=== PATIENT | male | born 1970 | race Two or more races ===

== ENCOUNTER 2022-09-19 10:29 | Emergency (ER) | payer OTHER, SELFPAY ==
--- NOTE | ~2022-09-19 | XR_ITS ---
EXAMINATION: XR RIBS, RIGHT CLINICAL INFORMATION: Right rib pain status post fall. COMPARISON: None TECHNIQUE: 3 views of the right ribs were obtained. Indicating arrow points to the inferior right ribs. FINDINGS: Lungs are clear. No consolidation, pneumothorax, or pleural effusion. The cardiomediastinal silhouette and pulmonary vasculature are normal. Osseous structures are unremarkable. Ribs are intact. No fractures are identified. XR/XR ribs RT min 3V w CXR1V IMPRESSION: Unremarkable examination. Please refer to the report from right shoulder and humerus radiographs from today for more detailed findings.
--- NOTE | ~2022-09-19 | XR_ITS ---
EXAMINATION: CR X-RAY SHOULDER AND HUMERUS RIGHT CLINICAL INFORMATION: Status post fall from ladder 1 week ago with persistent pain. COMPARISON: None TECHNIQUE: 3 views each of the right shoulder and humerus were obtained. FINDINGS: There is an acute, mildly displaced right humeral surgical neck fracture with mild lateral displacement of the distal fragment. Moderate right glenohumeral degenerative joint changes are seen. The right acromioclavicular joint and distal right humerus are intact. Mild soft tissue swelling is seen laterally. XR/XR humerus RT IMPRESSION: 1. Acute, mildly displaced right humeral surgical neck fracture correlating with the patient's trauma. 2. Moderate right glenohumeral degenerative joint changes.
--- NOTE | ~2022-09-19 | XR_ITS ---
EXAMINATION: CR X-RAY SHOULDER AND HUMERUS RIGHT CLINICAL INFORMATION: Status post fall from ladder 1 week ago with persistent pain. COMPARISON: None TECHNIQUE: 3 views each of the right shoulder and humerus were obtained. FINDINGS: There is an acute, mildly displaced right humeral surgical neck fracture with mild lateral displacement of the distal fragment. Moderate right glenohumeral degenerative joint changes are seen. The right acromioclavicular joint and distal right humerus are intact. Mild soft tissue swelling is seen laterally. XR/XR shoulder RT min 2V IMPRESSION: 1. Acute, mildly displaced right humeral surgical neck fracture correlating with the patient's trauma. 2. Moderate right glenohumeral degenerative joint changes.
[2022-09-19 10:48] VITALS: BP 151/73; PULSE 61; RESP 18; TEMP 36.7; O2SAT 99; BMI 28.1
[2022-09-19 13:14] VITALS: BP 149/76; PULSE 59; RESP 19; TEMP 36.6; O2SAT 96
--- NOTE | 2022-09-19 13:52 | ED.EXTPRO ---
HPI - Extremity Problem General Chief complaint: Extremity Injury, Upper Stated complaint: Pain in R arm/shoulder Time Seen by Provider: 09/19/22 13:20 History of Present Illness HPI Narrative: Patient complains of broken bone in right upper arm, as well as right upper rib pain worse with movement and deep breath he was in [place] he fell off a ladder he broke his arm 1 week ago and then once orthopedic follow-up and care as he has now returned to his home He did get an x-ray and see a doctor in [place] who gave him a sling and a swath but as his insurance did not work there he never saw an orthopedist and needs to see an orthopedist He denies any difficulty breathing, no fever no numbness weakness or tingling Related Data Previous Rx's Medication Instructions Recorded acetaminophen 500 mg capsule 1,000 mg PO Q8H PRN pain #30 caps 09/19/22 ibuprofen 600 mg tablet 600 mg PO Q6H PRN pain #30 tabs 09/19/22 tramadol 50 mg tablet 50 mg PO Q6-8H PRN pain #20 tabs 09/19/22 Allergies Allergy/AdvReac Type Severity Reaction Status Date / Time No Known Allergies Allergy Verified 09/19/22 10:52 [facility] Past Medical History Source: nursing notes reviewed Social History Social History Advance Directives: No Advance Directives Information Provided: No Physical Exam Vital Signs: Vital Signs: Last Vital Signs Temp 97.9 F 09/19/22 13:14 Pulse 59 09/19/22 13:14 Resp 19 09/19/22 13:14 BP 149/76 H 09/19/22 13:14 Pulse Ox 96 09/19/22 13:14 O2 Del Method 09/19/22 13:14 BMI result Body Mass Index 28.1 General appearance uncomfortable but no acute distress Head is normocephalic atraumatic Neck is supple nontender, no midline tenderness Chest is clear to auscultation full symmetric equal breath sounds There is pain in the right lateral ribs with deep breath, there is tenderness to the area and pain in the areas reproduced with twisting and movement The back there is no tenderness to the lumbar or thoracic spine Extremities the right shoulder has tenderness over the proximal humerus and the anterior and lateral shoulder as well as ecchymosis from the shoulder to the right bicep area It is neurovascular intact distal with normal sensation and movement in the fingertips, no motor or sensory deficits, neurovascular intact pulses are normal and symmetric Other extremities normal Course Course Course Narrative: X-ray of the right shoulder did show a right humeral neck fracture that is mildly displaced He did have a sling and swath from his visit to the hospital in [place] 1 week ago I contacted orthopedic physician retail loan originator assistant vivian who advised that they could see the patient in a timely way in their orthopedic office and patient was discharged with analgesics and follow-up with ortho Medications Administered Discontinued Medications Generic Name Dose Route Start Last Admin Trade Name Freq PRN Reason Stop Dose Admin Ketorolac Tromethamine 30 mg 09/19/22 13:52 09/19/22 13:57 Ketorolac Tromethamine 30 Mg/Ml Vial IM 09/19/22 13:53 30 mg ONCE ONE Administration Tramadol HCl 50 mg 09/19/22 13:52 09/19/22 13:57 Tramadol Hcl 50 Mg Tablet PO 09/19/22 13:53 50 mg ONCE ONE Administration Discharge Plan Discharge Clinical Impression: Closed right humeral fracture Patient Disposition: Home, Self-Care Additional Instructions: X-ray confirmed that you have a broken shoulder so follow closely with orthopedist and they will discuss possible treatment options X-ray of her chest and ribs did not show any broken bone, but x-ray can miss small fractures or cracks in the bone so you have either bruised or cracked rib Rib injuries almost always get better on their own over a couple weeks This was discussed from the emergency room with physician assistant prak Apply ice, use pain medicine as needed Return any time if worse Prescriptions: New tramadol 50 mg tablet 50 mg PO Q6-8H PRN (Reason: pain) Qty: 20 0RF ibuprofen 600 mg tablet 600 mg PO Q6H PRN (Reason: pain) Qty: 30 0RF acetaminophen 500 mg capsule 1,000 mg PO Q8H PRN (Reason: pain) Qty: 30 0RF Referrals: Sathish Mckeon MD [Physician] - (Right humeral neck fracture)
[2022-09-19] MEDS: Ketorolac Tromethamine 30 MG/ML VIAL IM (13:57)
[2022-09-19] MEDS: traMADoL HCL 50 MG TABLET PO (13:57)
== END 2022-09-19 14:09 | disposition home or self-care (01) ==
PROVIDERS: Emergency Provider Student in an Organized Health Care Education/Training Program
DX: S42.211A Unspecified displaced fracture of surgical neck of right humerus, initial encounter for closed fracture (principal); W11.XXXA Fall on and from ladder, initial encounter; R07.81 Pleurodynia; Y93.9 Activity, unspecified; Y92.9 Unspecified place or not applicable; Y99.9 Unspecified external cause status
CPT/HCPCS: 71101; 73030; 73060; 96372; 99283; 99284; J1885

== ENCOUNTER 2022-09-20 11:55 | Outpatient (REF) | payer OTHER, MEDICAID, SELFPAY ==
--- NOTE | ~2022-09-20 | XR_ITS ---
EXAMINATION: XR ELBOW, RIGHT CLINICAL INFORMATION: Right elbow pain. COMPARISON: None TECHNIQUE: AP and lateral views of the right elbow. FINDINGS: Soft tissues are swollen at the elbow with significant subcutaneous edema. No fracture or malalignment. Joint spaces are well-preserved. Bone mineralization is normal. Limited sensitivity for a effusion due to the obliquity. XR/XR elbow RT min 3V IMPRESSION: Soft tissue swelling and subcutaneous edema at the right elbow. No acute osseous findings. Limited sensitivity for a joint effusion due to the relative obliquity of the lateral view.
== END 2022-09-20 11:56 | disposition home or self-care (01) ==
LOC: HO.HOSX 11:55
PROVIDERS: Visit Provider Physician Assistant
DX: S42.201A Unspecified fracture of upper end of right humerus, initial encounter for closed fracture (principal)
CPT/HCPCS: 73080; 99202

== ENCOUNTER 2022-10-10 15:03 | Outpatient (REF) | payer MEDICARE, MEDICAID, SELFPAY ==
--- NOTE | ~2022-10-10 | CT_ITS ---
EXAMINATION: CT SHOULDER WITHOUT CONTRAST, RIGHT CLINICAL INFORMATION: Other specific arthropathies, not elsewhere classified. Fall. Pain. COMPARISON: Right shoulder and humerus radiographs dated 09/19/2022. TECHNIQUE: Contiguous axial CT images of the right shoulder were obtained without contrast. Sagittal and coronal reformats were provided and reviewed. This CT examination was performed using dose optimization techniques as appropriate, variously including the following: *Automated exposure control *Adjustment of mA and/or kV according to patient size (this includes techniques or standardized protocols for targeted exams where dose is matched to indication/reason for exam; i.e. extremities or head) *Use of iterative reconstruction technique DLP: 363 mGy-cm. FINDINGS: Comminuted proximal humeral fracture with a dominant oblique component through the humeral neck. There are small cortical fracture fragments adjacent to the dominant fracture with the largest along the anteromedial aspect measuring up to 1.2 cm in AP dimension. The fracture gap measures up to 1.3 cm laterally. No extension to the articular surface. No additional fracture. No dislocation. Severe glenohumeral joint space narrowing with mild bony remodeling/flattening of the humeral head and glenoid. Large marginal osteophytes. Mild acromioclavicular joint space narrowing with small marginal osteophytes. No concerning lytic or blastic osseous lesion. Moderate glenohumeral joint effusion. Posteroinferior ossified loose body measuring up to 2.1 cm in greatest dimension. Attenuation of the supraspinatus and infraspinatus tendons, which could indicate tendon tears. Evaluation significantly limited on CT examination. No abnormal soft tissue mass or fluid collection. Mild emphysematous changes within the right lung. Partially visualized within the inferomedial aspect of the right middle lobe is a spiculated soft tissue density measuring up to 2.6 x 2.3 cm. Additional, somewhat irregular soft tissue nodule within the right upper lobe measuring up to 0.7 cm (axial image 209/346). CT/CT shoulder RT wo IV con IMPRESSION: 1. Comminuted proximal humeral fracture with a dominant oblique component through the humeral neck. Small cortical fracture fragments adjacent to the dominant fracture with the largest measuring up to 1.2 cm. No extension to the articular surface. 2. Severe glenohumeral osteoarthritis with bony remodeling/flattening of the humeral head and glenoid. Moderate joint effusion. Posteroinferior ossified loose body measuring up to 2.1 cm. 3. Attenuation of the supraspinatus and infraspinatus tendons, which could indicate tendon tears. Evaluation significantly limited on CT examination. 4. Partially visualized spiculated soft tissue density within the inferomedial aspect of the right middle lobe measuring up to 2.6 cm. Additional 0.7 cm right upper lobe nodule. Mild emphysematous changes within the right lung. Immediate dedicated CT chest with contrast is recommended to further evaluate. This critical result was discussed with Paulina Marcos at 10:20 AM on 04/07/2023 and it was ascertained that the content and urgency of the report was understood at the time of direct communication.
== END 2022-10-10 15:04 | disposition home or self-care (01) ==
LOC: HO.CT 15:03
PROVIDERS: PCP Family Medicine; Visit Provider Physician Assistant
DX: M12.811 Other specific arthropathies, not elsewhere classified, right shoulder (principal)
CPT/HCPCS: 73200

== ENCOUNTER 2022-10-22 10:31 | Outpatient (REF) | payer MEDICARE, MEDICAID, SELFPAY ==
--- NOTE | ~2022-10-22 | CT_ITS ---
EXAMINATION: CT CHEST WITH CONTRAST CLINICAL INFORMATION: Lung nodule. COMPARISON: No prior chest CT or dedicated chest x-ray. CT scan of the shoulder dated October 10, 2022. TECHNIQUE: Multidetector volumetric CT imaging of the chest was obtained after the administration of 65 mL of Omnipaque 350 intravenous contrast without immediate adverse reactions. Axial MIP volume rendering provided. Sagittal and coronal reformatted images were obtained. This CT examination was performed using dose optimization techniques as appropriate, variously including the following: *Automated exposure control *Adjustment of mA and/or kV according to patient size (this includes techniques or standardized protocols for targeted exams where dose is matched to indication/reason for exam; i.e. extremities or head) *Use of iterative reconstruction technique DLP: 143 mGy-cm FINDINGS: LUNGS: The partially visualized spiculated soft tissue density within the inferomedial aspect of the right middle lobe measuring up to 2.[address] scan of the shoulder from October 10, 2022 appears decreased in size and conspicuity, and demonstrates a linear/geographic morphology. 4 mm calcified left upper lobe granuloma (image 60, series 7). MEDIASTINUM: Normal variant direct origin of the left vertebral artery from the aortic arch. The mediastinum otherwise appears unremarkable. PLEURA: There is no pleural effusion. No pleural mass or thickening. AXILLA: No lymphadenopathy by size criteria. UPPER ABDOMEN: Unremarkable OSSEOUS STRUCTURES: Redemonstration of comminuted fracture of the proximal right humerus. Osteoarthritis of the right glenohumeral joint. Healing fractures involving the right sixth through eighth ribs. Mild thoracic levocurvature. CT/CT chest w IV con IMPRESSION: The partially visualized spiculated soft tissue density within the inferomedial aspect of the right middle lobe measuring up to 2.[address] scan of the shoulder from October 10, 2022 appears decreased in size and conspicuity, and demonstrates a linear/geographic morphology, consistent with benign fibrotic change and/or atelectasis. Additional findings, as above.
[2022-10-22] MEDS: iohexoL 350 MG/ML 100 ML INFUS..BTL IV (12:35)
== END 2022-10-22 10:32 | disposition home or self-care (01) ==
LOC: HO.CT 10:31
PROVIDERS: PCP Family Medicine; Visit Provider Family Medicine
DX: R91.8 Other nonspecific abnormal finding of lung field (principal)
CPT/HCPCS: 71260; Q9967

== ENCOUNTER → 2022-11-02 10:30 | Outpatient (BNVA) | payer MEDICARE, MEDICAID, SELFPAY | PROVIDERS: PCP Family Medicine; Visit Provider Surgery | DX: R91.1 Solitary pulmonary nodule (principal); F17.200 Nicotine dependence, unspecified, uncomplicated | CPT/HCPCS: 99202 ==

== ENCOUNTER 2022-12-03 10:33 | Outpatient (REF) | payer OTHER, SELFPAY ==
--- NOTE | ~2022-12-03 | XR_ITS ---
EXAMINATION: XR SHOULDER, RIGHT CLINICAL INFORMATION: Pain. COMPARISON: Portions of the CT shoulder dated 10/11/2022; radiographs dated 09/20/2022. TECHNIQUE: AP external rotation, Grashey, scapular Y, and axillary views of the right shoulder. FINDINGS: Bony mineralization is mildly diminished. There is improvement in alignment of an oblique, mildly displaced fracture of the right humeral neck. Mild periosteal callus formation is noted. The glenohumeral joint is intact. There is moderate osteoarthritic change of the glenohumeral joint. The acromioclavicular and coracoclavicular intervals are normal. There is a small distal acromial undersurface osteophyte. There is cortical irregularity of the greater tuberosity of the proximal right humerus. No soft tissue calcification or foreign body is noted. XR/XR shoulder RT min 2V IMPRESSION: 1. There is interim improvement in alignment of a now mildly displaced oblique fracture of the right humeral neck. Mild periosteal callus formation is noted. 2. There is moderate osteoarthritic change of the right glenohumeral joint. 3. Findings suggest possible right rotator cuff impingement.
== END 2022-12-03 10:34 | disposition home or self-care (01) ==
LOC: HO.HOSX 10:33
PROVIDERS: Visit Provider Physician Assistant
DX: S42.201D Unspecified fracture of upper end of right humerus, subsequent encounter for fracture with routine healing (principal)
CPT/HCPCS: 73030

== ENCOUNTER 2022-12-11 10:46 | Outpatient (REF) | payer OTHER, SELFPAY ==
--- NOTE | ~2022-12-11 | XR_ITS ---
EXAMINATION: XR LUMBOSACRAL SPINE CLINICAL INFORMATION: No prior plain film of the lumbar spine. Chest CT dated October 22, 2022. COMPARISON: None available. TECHNIQUE: Three views of the lumbosacral spine. XR/XR lumbar spine 2-3V FINDINGS/IMPRESSION: Question mild compression deformities of T12 and L1, similar compared with October 22, 2022. Mild posterior subluxation of the coccyx seen on coned down lateral view. Vertebral alignment appears unremarkable. The paraspinal soft appear unremarkable.
== END 2022-12-11 10:47 | disposition home or self-care (01) ==
LOC: HO.HHCX 10:46
PROVIDERS: Visit Provider Emergency Medicine
DX: M54.42 Lumbago with sciatica, left side (principal); G89.29 Other chronic pain
CPT/HCPCS: 72100

== ENCOUNTER → 2022-12-18 09:11 | Outpatient (BNVA) | payer OTHER, SELFPAY | PROVIDERS: PCP Family Medicine; Referring Provider Family Medicine; Visit Provider Surgery | DX: K43.2 Incisional hernia without obstruction or gangrene (principal) | CPT/HCPCS: 99202 ==

== ENCOUNTER 2023-01-11 09:59 | Day surgery (SDC) | payer OTHER, SELFPAY ==
--- NOTE | 2023-01-10 09:59 | HO.ANESPROP2 ---
HPI - Anesthesia Eval Consult details Narrative: 52yo M for Open Ventral/Incisional Hernia Repair w/ Mesh PMFSH Active Problems Active Problems: All Active Problems (Updated 01/10/23 @ 08:00 by Leah Lee RN) Proximal humeral fracture (Acute ~09/2022) Pulmonary nodule (Acute) Incisional hernia of anterior abdominal wall without obstruction or gangrene (Acute) Nicotine dependence, cigarettes, uncomplicated (Acute) Past Medical History Medical History Anxiety BPH (benign prostatic hyperplasia) Chronic neck pain Depressed GERD (gastroesophageal reflux disease) Hyperlipidemia Nicotine dependence, cigarettes, uncomplicated Pulmonary nodule Surgical History Surgical History History of arthroscopic surgery of shoulder History of basal cell carcinoma excision Hx of carpal tunnel repair Hx of inguinal hernia repair Hx of umbilical hernia repair Social History Social History Alcohol intake: current Alcohol intake frequency: holidays/special occasions only Alcohol type: beer Patient Tobacco Use Status: Current everyday Tobacco user Tobacco use type: Cigarette Cigarette Packs Per Day: 1 Cigarettes Per Day: 20.0 Years Smoked: (current smoker, onset 10yo, 1ppd x 42yrs, 40pyh) Current occupational status: disabled Current occupation: rt hand Meds Allergies Allergy/AdvReac Type Severity Reaction Status Date / Time No Known Allergies Allergy Verified 01/14/23 12:41 Home Medications Medication Instructions Recorded Confirmed Last Taken Type atorvastatin 40 mg tablet 40 mg PO DAILY 09/20/22 01/11/23 Unknown History ezetimibe 10 mg tablet 10 mg PO DAILY 09/20/22 01/11/23 Unknown History finasteride 5 mg tablet 5 mg PO DAILY 09/20/22 01/11/23 Unknown History gabapentin 800 mg tablet 400 mg PO QID 09/20/22 01/11/23 01/11/23 History quetiapine 25 mg tablet (Seroquel) 25 mg PO BEDTIME 12/03/22 01/11/23 Unknown History Exam Exam Date and Time: January 10, 2023 0959 Assessment and Plan Assessment Anesthesia Assessment: Chart Reviewed
--- NOTE | 2023-01-10 11:24 | MHC.SHP ---
Pre-Procedural Eval Section A Date of Service: 01/10/23 The patient is an INPATIENT: No Changes since office visit: No Cold of Flu in the past 2 weeks, No New Medical Problems, No Changes in Medication and No Patient answered all questions The History & Physical has been completed within 30 days and I have reviewed it.: Yes Section B Chief Complaint: Incisional hernia without obstruction or gangrene Allergies: Allergies Allergy/AdvReac Type Severity Reaction Status Date / Time No Known Allergies Allergy Verified 12/18/22 09:19 Plan I have reviewed the history and physical and performed a pertinent physical examination on my patient. No changes have occurred unless specified. Time Spent With Patient Time: Total time managing care of this patient today ____ minutes.
[2023-01-11] VITALS (8 sets, daily range): BP systolic 125–170; BP diastolic 77–91; PULSE 51–70; RESP 16–18; TEMP 36.3–36.6; O2SAT 96–99; BMI 26.6
[2023-01-11] MEDS: Lactated Ringers 1,000 ML 100 ML IVCONT (10:42)
--- NOTE | 2023-01-11 12:05 | W.PM.OPN ---
Operative Note Operative Note Date of Service: 01/11/23 Narrative: Preoperative diagnosis: [] incisional supraumbilical ventral hernia incarcerated Postop diagnosis: [] same Procedure [] repair incarcerated incisional ventral hernia with Bard mesh Surgeon: [] right Licensed Appraiser: [] Type of Anesthesia: [] general Indication for surgery: [] patient had approximately 3 cm supraumbilical incisional ventral hernia with incarcerated omental contents. Findings: [] Patient brought to the operating room, placed on operative table supine position, after adequate level of general anesthesia was induced, the patient's abdomen was prepped and draped in usual sterile fashion. Using an incision from the prior scar from the patient's previous surgery in the upper midline/supraumbilical area, over the hernia in question, this carried down through skin, subcutaneous tissue, were large hernia sac was identified and circumferentially dissected out down to the fascia. Sac was opened were incarcerated omental contents and sac were amputated using combination of Bovie and clamps and 2-0 ties. Fascia margins were circumferentially cleared and a Bard mesh was placed in this defect. The superficial layer of mesh was circumferentially sutured to the surrounding fascia using interrupted 0 Ethibond suture. At completion the procedure, mesh was in excellent position with no tension and no gaps. Wound was irrigated, secured hemostasis, and closed in the following manner; deep subcutaneous tissue was reapproximated using up to 3-0 Vicryl sutures. Interrupted inverted subdermal 3-0 Vicryl sutures followed by running subcuticular 4-0 Vicryl sutures were placed. Steri-Strips and sterile dressings were applied. Wound was infiltrated with a combination of 0.5% Marcaine/ 1% lidocaine. Sponge, needle, and instrument counts were reported to be correct. Patient tolerated the procedure well and emerged anesthesia stable condition. EBL minimal
[2023-01-11] MEDS: oxyCODONE HCl Immed Release 5 MG TABLET PO (12:47)
== END 2023-01-11 13:20 | disposition home or self-care (01) ==
PROVIDERS: PCP Family Medicine; Visit Provider Surgery
PROC: (CPT 49616; principal; 2023-01-11 11:40)
DX: K43.0 Incisional hernia with obstruction, without gangrene (principal); K21.9 Gastro-esophageal reflux disease without esophagitis; N40.0 Benign prostatic hyperplasia without lower urinary tract symptoms; E78.00 Pure hypercholesterolemia, unspecified; G89.29 Other chronic pain; M54.2 Cervicalgia; F32.A Depression, unspecified; F41.1 Generalized anxiety disorder; F17.210 Nicotine dependence, cigarettes, uncomplicated; Z98.890 Other specified postprocedural states
CPT/HCPCS: 49616; 88304; C1781; J0131; J0690; J1100; J1885; J2405; J2795; J3010

== ENCOUNTER 2023-01-14 08:29 | Outpatient (REF) | payer OTHER, SELFPAY ==
--- NOTE | ~2023-01-14 | XR_ITS ---
EXAMINATION: XR SHOULDER, RIGHT CLINICAL INFORMATION: Pain. COMPARISON: Radiographs dated 12/03/2022. TECHNIQUE: AP external rotation, Grashey, scapular Y, and axillary views of the right shoulder. FINDINGS: Bony mineralization is mildly diminished. There is stable alignment of an oblique, mildly displaced fracture of the right humeral neck. There is stable mild periosteal callus formation, with fracture line clearly visible. The glenohumeral joint is intact. Again, there is moderate osteoarthritic change of the right glenohumeral joint. The acromioclavicular and coracoclavicular intervals are normal. A small distal acromial undersurface osteophyte is seen. There is marked cortical irregularity of the greater tuberosity of the proximal right humerus. No soft tissue calcification or foreign body is seen. There is no right pneumothorax. XR/XR shoulder RT min 2V IMPRESSION: 1. There is stable alignment of a mildly displaced, oblique fracture of the right humeral neck. A persistent fracture line is noted. 2. There is again moderate osteoarthritic change of the right glenohumeral joint. 3. Findings again suggest right rotator cuff impingement.
== END 2023-01-14 08:30 | disposition home or self-care (01) ==
LOC: HO.HOSX 08:29
PROVIDERS: Visit Provider Physician Assistant
DX: S42.201D Unspecified fracture of upper end of right humerus, subsequent encounter for fracture with routine healing (principal)
CPT/HCPCS: 73030; 99212

== ENCOUNTER → 2023-01-22 10:06 | Outpatient (BNVA) | payer OTHER, SELFPAY | PROVIDERS: Visit Provider Surgery ==

== ENCOUNTER 2023-02-13 14:18 | Outpatient (REF) | payer OTHER, SELFPAY ==
--- NOTE | ~2023-02-13 | MM_ITS ---
EXAMINATION: BONE DENSITOMETRY CLINICAL INDICATION: Osteoporosis. COMPARISON: This is the patient's baseline examination. TECHNIQUE: Using a Teleport DXA System (software version: 13.1) manufactured by [employer], dual-energy x-ray absorptiometry was performed of the lumbar spine and left hip. The images are of good technical quality. Summary results are attached. FINDINGS: LEFT FEMUR, NECK: BMD 0.950 g/cm2, Z-score -0.2, T-score -0.9, normal. LEFT FEMUR, TOTAL: BMD 1.148 g/cm2, Z-score 0.7, T-score 0.3, normal. AP SPINE L1-L4: BMD 1.394 g/cm2, Z-score 1.6, T-score 1.4, normal. IDENTIFIED RISK FACTORS: Anticonvulsant, history of fracture (adult), low calcium intake, recurrent falls, tobacco use (current smoker). HISTORY OF FRACTURE: Shoulder. MEDICATIONS: None listed. MM/XR DEXA axial skeleton IMPRESSION: 1. DIAGNOSIS: Normal bone density based on the lowest T-score value of -0.9 in the femoral neck applying World Health Organization criteria. 2. 10-YEAR FRACTURE RISK PREDICTION, FRAX: According to the guidelines, FRAX calculation should only be performed on patients in the osteopenia bone density category. Therefore, FRAX was not performed on this patient. 3. Treatment Recommendations: NOF guidelines recommend consideration for treatment in postmenopausal women and men age 50 and older presenting with the following: -A hip or vertebral (clinical or morphometric) fracture. -T-score less than or equal to -2.5 at the femoral neck or spine after appropriate evaluation to exclude secondary causes. -Low bone mass at the hip or spine and a 10-year fracture probability by FRAX of greater than or equal to 3% for hip fracture or greater than or equal to 20% for major osteoporotic fracture based on the [place] adapted WHO algorithm. 4. Other Recommendations: All treatment decisions require clinical judgment and consideration of individual patient factors, including patient preferences, comorbidities, previous drug use, risk factors not captured in the FRAX model (e.g. frailty, falls, vitamin D deficiency, increased bone turnover, interval significant decline in bone density) and possible under or overestimation of fracture risk by FRAX. FUTURE SCAN RECOMMENDATION: People with diagnosed cases of osteoporosis or at high risk for fracture should have regular bone mineral density tests. For patients eligible for Medicare, routine testing is allowed once every 2 years. The testing frequency can be increased to one year for patients who have rapidly progressing disease, those who are receiving or discontinuing medical therapy to restore bone mass, or have additional risk factors.
== END 2023-02-13 14:19 | disposition home or self-care (01) ==
LOC: HO.MAMMO 14:18
PROVIDERS: PCP Family Medicine; Visit Provider Family Medicine
DX: Z13.820 Encounter for screening for osteoporosis (principal); G95.20 Unspecified cord compression; F17.200 Nicotine dependence, unspecified, uncomplicated; E58 Dietary calcium deficiency; Z79.899 Other long term (current) drug therapy
CPT/HCPCS: 77080

== ENCOUNTER 2023-02-14 09:29 | Outpatient (AMB) | payer OTHER, SELFPAY ==
--- NOTE | 2023-02-14 09:31 | MHC.OFFVIS ---
Intake Vital Signs 02/14/23 09:35 Height 5 ft 8 in Weight 176 lb BMI 26.8 BP 129/77 Blood Pressure Location Rt brachial Position Sitting Pulse 69 Intake Visit Reasons: subcutaneous nodule Intake Note: This patient presents for an assessment for subcutaneous nodule. Patient c/o; tender to the touch, back, denies draining. Claims Supervisor Required: No Accompanied by: Other Relationship Allergies No Known Allergies Allergy (Verified 02/14/23 09:36) Medication List - Last Reconciled 02/14/23 by Alden Naik MD acetaminophen 1,000 mg (2 x 500 mg) PO Q8H PRN atorvastatin 40 mg PO DAILY ezetimibe 10 mg PO DAILY finasteride 5 mg PO DAILY gabapentin 400 mg PO QID hydrocodone-acetaminophen 5-325 mg 1 tab PO Q4-6H PRN ibuprofen 600 mg PO Q6H PRN quetiapine (Seroquel) 25 mg PO BEDTIME tramadol 50 mg PO Q12H 7 days HPI subcutaneous nodule HPI Details 52-year-old male here because of cyst on the back. He says he has had this for about 6 months. He says that this get swollen and tender periodically and he wants this removed. He denies any drainage. He says that he does had care of a ventral hernia about a month ago and he seems to be doing well. [facility], [facility] Medical History (Updated 02/14/23 @ 09:48 by Alden Naik MD) Anxiety BPH (benign prostatic hyperplasia) Chronic neck pain Depressed Epidermal cyst GERD (gastroesophageal reflux disease) Hyperlipidemia Nicotine dependence, cigarettes, uncomplicated Surgical History History of arthroscopic surgery of shoulder History of basal cell carcinoma excision History of carpal tunnel surgery History of incisional hernia repair History of inguinal hernia repair History of umbilical hernia repair Social History Alcohol intake: current Alcohol intake frequency: holidays/special occasions only Alcohol type: beer Patient Tobacco Use Status: Current everyday Tobacco user Tobacco use type: Cigarette Cigarette Packs Per Day: 1 Cigarettes Per Day: 20.0 Years Smoked: (current smoker, onset 10yo, 1ppd x 42yrs, 40pyh) Current occupational status: disabled Current occupation: rt hand Review of Systems Const Denies chills and Denies fever(s) Card Denies chest pain, Denies dyspnea and Denies dyspnea on exertion Resp Denies cough, Denies dyspnea and Denies dyspnea on exertion GI Denies hematochezia and Denies change in bowel habits Denies hematuria and Denies difficulty urinating Musc Denies back pain and Denies limited range of motion Neuro Denies focal weakness and Denies convulsions Psych Denies depression and Denies mood swings Physical Exam Vital Signs: Last Vital Signs Pulse 69 02/14/23 09:35 BP 129/77 02/14/23 09:35 BMI result Body Mass Index 26.8 Const General: comfortable and no acute distress Orientation/consciousness: patient oriented x3 Neck Neck: Yes no lymphadenopathy Resp Auscultation: clear to auscultation bilaterally Cardio Rhythm: regular rhythm GI Palpation (GI): Soft to palpation, nontender and no guarding Back/Spine/Pelvis Other: Cystic induration, about 1.5 cm on the mid back, non inflamed, well-defined Neuro General: patient oriented x3 Assessment & Plan Assessment & Plan (1) Epidermal cyst: Code(s): L72.0 - Epidermal cyst Plan: He has what appears to be an epidermal cyst on the back as described above. He wants this removed. I explained the technique of excision under local anesthesia. I reviewed the risks, benefits, and alternatives and he wants to proceed. This will be done in the office under local anesthesia on his next visit. Coding Level of Care Code Est Pt Level 3 (68781) Diagnoses Epidermal cyst L72.0
[2023-02-14 09:35] VITALS: BP 129/77; PULSE 69; BMI 26.8
== END 2023-02-14 10:03 | disposition home or self-care (01) ==
PROVIDERS: PCP Family Medicine; Visit Provider Surgery
DX: L72.0 Epidermal cyst (principal)
CPT/HCPCS: 99213

== ENCOUNTER → 2023-02-14 09:29 | Outpatient (BNVA) | payer OTHER, SELFPAY | PROVIDERS: PCP Family Medicine; Visit Provider Surgery | DX: L72.0 Epidermal cyst (principal) | CPT/HCPCS: 99212 ==

== ENCOUNTER 2023-02-18 10:00 | Outpatient (RCR) | payer OTHER, SELFPAY ==
--- NOTE | 2023-01-01 13:34 | MHC.PT.EP ---
[facility] [place] Office [place] Office [place] Office [address] [phone] F: [phone] F: [phone] F: [phone] F: [phone] Physical Therapy Plan of Care Date of Evaluation: Date of Surgery: Diagnosis: Unspecified fracture of upper end of unspecified humerus, initial encounter for closed fracture proximal humeral fracture Assessment: Pt is a pleasant 52yo M who injured his R shoulder after falling off a ladder in ~September. Imaging revealed mildly displaced right humeral surgical neck fracture. Pt presents to PT with expected impairments of pain, decreased R shoulder ROM, decreased R UE strength, soft tissue restrictions, and impaired posture. He is limited functionally by lifting, reaching, carrying, eating, overhead ADLs, and sleeping. He is a good candidate for skilled PT in order to address current impairments to facilitate return to PLOF. He is recommended to be seen 2x/week for 4 weeks and will be reassessed at that time. Frequency and Duration: The patient will be seen 2x/week for 4 weeks Short Term Goals: Pt will be I with HEP to promote self management of symptoms Pt will improve R shoulder flexion ROM by at least 10 degrees Stone Gluer Goals: Pt will achieve R shoulder flexion AROM to 90 deg with minimal to no compensation to facilitate return to PLOF Pt will improve R shoulder flexion and abduction strength to at least 4+/5 to assist with ADLs and functional tasks Pt will demonstrate improvements in function as evidenced by statistically significant improvement in SPADI outcome measure Treatment Plan: Modalities to reduce pain, spasms and effusion. Manual therapy to restore motion and function. Therapeutic exercise to improve strength and flexibility. Neuromuscular re-education for posture and balance. Therapeutic activities to return to functional activities of daily living. Electronically signed by: Raquel Fisher, PT, DPT Please sign and return to therapist. Thank you for your referral.
--- NOTE | 2023-03-22 15:20 | MHC.PT.DC ---
[facility] [place] Office [place] Office [place] Office [address] [place] Murdock [address] [phone] F: [phone] F: [phone] F: [phone] F: [phone] Physical Therapy Discharge Report Diagnosis: Unspecified fracture of upper end of unspecified humerus, initial encounter for closed fracture proximal humeral fracture Date of Surgery: Date of Evaluation: 01/01/23 Date of Discharge: 03/22/23 Treatments to Date: 11 Cancellations to Date: No Shows to Date: Discharge Status: Improved Function Independent with HEP Discharge Summary: Pt was seen for PT from 01/01/23-02/18/23. His last attended and scheduled appointment was 02/18/23. He made good progress since SOC. He improved shoulder ROM and had an overall decrease in pain. Pt is being D/C from skilled PT as he has not attended or called to schedule in >30 days. Pt current level of function unknown at this time. Electronically signed by: Raquel Fisher, PT, DPT Please sign and return to therapist. Thank you for your referral.
== END 2023-03-22 15:20 | disposition home or self-care (01) ==
LOC: HO.PT 10:00
PROVIDERS: PCP Family Medicine; Visit Provider Physician Assistant
DX: S42.201D Unspecified fracture of upper end of right humerus, subsequent encounter for fracture with routine healing (principal)
CPT/HCPCS: 97110; 97140; 97162; 97164

== ENCOUNTER 2023-02-20 14:15 | Outpatient (REF) | payer OTHER, SELFPAY ==
--- NOTE | ~2023-02-20 | CT_ITS ---
EXAMINATION: CT CHEST WITHOUT CONTRAST CLINICAL INFORMATION: Solitary pulmonary nodule. COMPARISON: None available. TECHNIQUE: Multidetector volumetric CT imaging of the chest was done. Axial MIP volume rendering provided. Sagittal and coronal reformatted images were obtained. This CT examination was performed using dose optimization techniques as appropriate, variously including the following: *Automated exposure control *Adjustment of mA and/or kV according to patient size (this includes techniques or standardized protocols for targeted exams where dose is matched to indication/reason for exam; i.e. extremities or head) *Use of iterative reconstruction technique DLP: 204 mGy-cm FINDINGS: WALL AND FLOOR TILER: Well-expanded lungs. LUNGS: The lungs are well-expanded and clear of acute process. Previously visualized curvilinear/fibrillated area around the right middle lobe medially and adjacent to the right pericardium has completely resolved and not visualized at this time. 4 mm calcification in the left upper lobe adjacent to major fissure. No pulmonary nodule, mass or consolidation seen. MEDIASTINUM: The thyroid lobes are symmetrical and normal. The central trachea and bronchi are widely patent. Heart size and the great vessels are normal caliber. No abnormal size mediastinal lymph nodes seen. No pericardial effusion seen either. CORONARY ARTERY CALCIFICATION: Trace coronary artery calcifications are present. PLEURA: There is no pleural effusion. No pleural mass or thickening. AXILLA: Small shotty lymph nodes are seen in the axilla. UPPER ABDOMEN: Visualized liver, spleen, pancreas and bilateral adrenal glands are unremarkable. OSSEOUS STRUCTURES: There is moderate ventral spondylosis of the mid and lower dorsal spine. No aggressive lytic or sclerotic process seen. CT/CT chest wo IV con IMPRESSION: Previously visualized curvilinear/ spiculated lesion of the right middle lobe medially has resolved. There are no new pulmonary nodules, mass or acute consolidation. Fleischner guidelines were followed.
== END 2023-02-20 14:16 | disposition home or self-care (01) ==
LOC: HO.CT 14:15
PROVIDERS: Visit Provider Surgery
DX: R91.1 Solitary pulmonary nodule (principal)
CPT/HCPCS: 71250

== ENCOUNTER 2023-03-08 09:32 | Outpatient (AMB) | payer OTHER, SELFPAY ==
[2023-03-08 10:13] VITALS: BP 120/50; PULSE 55; O2SAT 98; BMI 26.0
--- NOTE | 2023-03-08 10:13 | MHC.OFFVIS ---
Intake Vital Signs 03/08/23 10:13 Height 5 ft 8 in Weight 171 lb BMI 26.0 BP 120/50 L Blood Pressure Location Lt brachial Position Sitting Pulse 55 Pulse Oximetry (%) 98 Intake Visit Reasons: Pulmonary Nodule Allergies No Known Allergies Allergy (Verified 03/08/23 10:20) Medication List - Last Reconciled 03/09/23 by Ambrose Cortez MD acetaminophen 1,000 mg (2 x 500 mg) PO Q8H PRN atorvastatin 40 mg PO DAILY ezetimibe 10 mg PO DAILY finasteride 5 mg PO DAILY gabapentin 400 mg PO QID hydrocodone-acetaminophen 5-325 mg 1 tab PO Q4-6H PRN ibuprofen 600 mg PO Q6H PRN quetiapine (Seroquel) 25 mg PO BEDTIME tramadol 50 mg PO Q12H 7 days HPI Pulmonary Nodule HPI Details 52-year-old male long-time and curr ent smoker who has had 2 shoulder barajas rgeries on the rig ht side before and more recently had a CT scan of the right shoulder in preparation for po ssible shoulder re placement which wa s done on 10/10/2022 .? This showed a p ulmonary nodule in the right middle lobe measuring abo ut 2.6 cm.? Quite appropriately a fu ll regular CT scan of the chest was done on 10/22/2022 in follow-up with that finding which shows decrease in size of that pulm onary nodule in th e right middle lob e with an inflamma tory or atelectati c appearance to it .? There is no med iastinal lymphaden opathy and no pleu ral fluid. A follo w-up CT scan of th e chest was done o n 02/20/2023. This shows complete re solution of the ri ght middle lobe no dule previously me ntioned. He is a current smoker smo raman a pack per da y started at age [age].? I did spend 6 minutes discussing smoking cessation with him includin g gradual weaning and using the gum as a replacement a s well as replacin g any triggers daniel t he knows with so me other activity like a walk or clemencia wing gum.? He says he wants to try a nd stop But has be en unsuccessful us ing multiple diffe rent modalities. We did discuss oth er ways including Chantix and Wellbu emily and because h e does have some b aseline anxiety he wants to try the Wellbutrin. I vonnie l start him with a prescription for that and asked daniel t he let his prima ry care know we molina ve started that so that it can be co ntinued if it seem s to be working.? I also did mention that his healing after his total sh oulder replacement would be much imp roved few was able to stop smoking.? He reports othe rwise feeling in g ood health denies unintentional weig ht loss decreased appetite fevers ch ills or soaking sw eats.? He denies c hest pain he denie s cough or hemopty sis and he denies shortness of breat h.? Other than abo ve, 12 point revie w of systems was d one and documented separately in the office chart with detailed social a nd family history. ? ? PFSH Medical History Anxiety BPH (benign prostatic hyperplasia) Chronic neck pain Depressed Epidermal cyst GERD (gastroesophageal reflux disease) Hyperlipidemia Nicotine dependence, cigarettes, uncomplicated Surgical History History of arthroscopic surgery of shoulder History of basal cell carcinoma excision History of carpal tunnel surgery History of incisional hernia repair History of inguinal hernia repair History of umbilical hernia repair Social History Alcohol intake: current Alcohol intake frequency: holidays/special occasions only Alcohol type: beer Patient Tobacco Use Status: Current everyday Tobacco user Tobacco use type: Cigarette Cigarette Packs Per Day: 1 Cigarettes Per Day: 20.0 Years Smoked: (current smoker, onset 10yo, 1ppd x 42yrs, 40pyh) Current occupational status: disabled Current occupation: rt hand Physical Exam Vital Signs: Last Vital Signs Pulse 55 03/08/23 10:13 BP 120/50 L 03/08/23 10:13 Pulse Ox 98 03/08/23 10:13 BMI result Body Mass Index 26.0 nad rrr ctab abd soft nl bs no edema Assessment & Plan Assessment & Plan (1) Pulmonary nodule: Code(s): R91.1 - Solitary pulmonary nodule Plan: 52-year-old male with a now resolved right middle lobe pulmonary nodule. I spent some time through an certified court/medical interpreter discussing with him and his family the findings on his CAT scan as described in the HPI. We also discussed pulmonary nodules in general and how their size, shape, and guide changer time affect are level of suspicion for malignancy. They seemed understand this quite well. (2) Nicotine dependence, cigarettes, uncomplicated: Comment: (current smoker, onset 10yo, 1ppd x 42yrs, 40pyh) Code(s): F17.210 - Nicotine dependence, cigarettes, uncomplicated Plan: With regards to his ongoing smoking I did discuss smoking cessation with him as above and he does want to try and stop. I will plan on prescribing Wellbutrin and sending it electronically to his pharmacy. He also currently meets criteria for lung cancer screening being age 52 currently smoking a pack per day and has smoked that since teenage years more than [id number] history without symptoms of lung cancer. I discussed the benefits of lung cancer screening which is the early detection of lung cancer as well as the risks which include but are not limited to exposure to radiation and the possibility of false positives leading to additional testing. He and his family understood that and agreed to proceed with this. Orders: Orders CT lung screening 11 Months F17.210 - Nicotine dependence, cigarettes, uncomplicated Medications: New bupropion HCl (Wellbutrin SR) 150 mg tablet daily for the first 3 days followed by 150 mg tablets twice daily after that. Begin this medication about 1 to 2 weeks before quit date and limit alcohol intake. 150 mg PO DAILY 60 tabs 0RF F17.210 - Nicotine dependence, cigarettes, uncomplicated Coding Level of Care Code Est Pt Level 4 (61342) Diagnoses Pulmonary nodule R91.1 Nicotine dependence, cigarettes, uncomplicated F17.210 Comment Smoking cessation 6 minutes. Please bill.
== END 2023-03-08 10:36 | disposition home or self-care (01) ==
PROVIDERS: PCP Family Medicine; Visit Provider Surgery
DX: R91.1 Solitary pulmonary nodule (principal); F17.210 Nicotine dependence, cigarettes, uncomplicated

== ENCOUNTER → 2023-03-08 09:32 | Outpatient (BNVA) | payer OTHER, SELFPAY | PROVIDERS: PCP Family Medicine; Visit Provider Surgery | DX: R91.1 Solitary pulmonary nodule (principal); F17.210 Nicotine dependence, cigarettes, uncomplicated | CPT/HCPCS: 99212 ==

== ENCOUNTER 2023-03-11 11:15 | Outpatient (REF) | payer OTHER, SELFPAY | END 2023-03-11 11:16 | disposition home or self-care (01) | LOC: HO.HOSX 11:15 | PROVIDERS: Visit Provider Physician Assistant | DX: Z13.89 Encounter for screening for other disorder (principal) ==

== ENCOUNTER 2023-03-20 13:06 | Outpatient (REF) | payer OTHER, SELFPAY ==
--- NOTE | ~2023-03-20 | XR_ITS ---
EXAMINATION: XR SHOULDER, RIGHT CLINICAL INFORMATION: Pain. COMPARISON: Radiograph right shoulder 01/14/2023. TECHNIQUE: Three views of the right shoulder. FINDINGS: Oblique fracture of the right humeral neck with increased osseous bridging compared to 01/14/2023. Alignment is unchanged. Redemonstration of exuberant bony productive changes along the superior and inferior aspect of the glenoid. Again noted moderate to severe joint space narrowing of the acromioclavicular joint as well as decrease acromiohumeral interval. No interval injuries. No abnormal soft tissue calcifications. XR/XR shoulder RT min 2V IMPRESSION: 1. Healing right humeral neck fracture with unchanged alignment. 2. 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 3. Decreased acromiohumeral interval suggesting rotator cuff injury.
== END 2023-03-20 13:07 | disposition home or self-care (01) ==
LOC: HO.HOSX 13:06
PROVIDERS: Visit Provider Physician Assistant
DX: S42.201D Unspecified fracture of upper end of right humerus, subsequent encounter for fracture with routine healing (principal)
CPT/HCPCS: 73030; 99212

== ENCOUNTER 2023-03-20 14:32 | Outpatient (AMB) | payer OTHER, SELFPAY ==
--- NOTE | 2023-03-20 14:43 | A.OFFVIS_ITS ---
Intake Vital Signs 03/20/23 14:48 Height 5 ft 8 in Weight 171 lb BMI 26.0 Handedness Right Intake Visit Reasons: OV-RT prox humerus fx w/ XR Intake Note: Rudy is a 52 year old right hand dominant male who presents today for a follow up of right proximal humerus fracture. X rays updated in office. Patient reports his shoulder feels better than his last visit. He states that PT has helped him with some of his ROM. Patient was wondering if he could get a prescription for a shoulder brace that can stabilize his shoulder. Allergies No Known Allergies Allergy (Verified 03/20/23 14:48) HPI OV-RT prox humerus fx w/ XR HPI Details 52-year-old right hand dominant male who returns to the office today for a follow-up of right proximal humerus fracture. He states he has improvement in his pain since the last visit. He had undergone physical therapy which provided him relief with his ROM. He would like to know if he could get a prescription for a shoulder brace which can stabilize his shoulder. [facility] Medical History Anxiety BPH (benign prostatic hyperplasia) Chronic neck pain Depressed Epidermal cyst GERD (gastroesophageal reflux disease) Hyperlipidemia Nicotine dependence, cigarettes, uncomplicated Surgical History History of arthroscopic surgery of shoulder History of basal cell carcinoma excision History of carpal tunnel surgery History of incisional hernia repair History of inguinal hernia repair History of umbilical hernia repair Social History Alcohol intake: current Alcohol intake frequency: holidays/special occasions only Alcohol type: beer Patient Tobacco Use Status: Current everyday Tobacco user Tobacco use type: Cigarette Cigarette Packs Per Day: 1 Cigarettes Per Day: 20.0 Years Smoked: (current smoker, onset 10yo, 1ppd x 42yrs, 40pyh) Current occupational status: disabled Current occupation: rt hand Review of Systems Const All systems reviewed & are unremarkable except as noted in HPI and below Physical Exam Vital Signs: BMI result Body Mass Index 26.0 Const General: cooperative and no acute distress Orientation/consciousness: patient oriented x3 Resp Effort & Inspection: normal respiratory effort and able to speak in complete sentences Cardio Peripheral pulses: Peripheral pulses 2+ throughout Neuro General: patient oriented x3 Extrem Other: Right shoulder normal to inspection. Anterior deltoid sensation intact and he is able to activate abduction. FF to 90, ER to 45. He can bring his hand to the top of his head. Elbow and wrist ROM intact.He is able to activate his RTC with mild weakness and use of accessory muscles. NVI. Results Reviewed Results Reviewed: X-rays of the right shoulder obtained in the office today show femoral neck fracture with interval healing and stable fracture pattern when compared to previous study. Assessment & Plan Assessment & Plan (1) Proximal humeral fracture: Onset Date: ~09/2022 Comment: (Comminuted proximal humeral fracture Right shoulder - 09/2022) Code(s): S42.209A - Unspecified fracture of upper end of unspecified humerus, initial encounter for closed fracture Plan He will continue with his home exercises program. He has improved significantly over the last several weeks and is able to perform daily activities without pain or much discomfort. I did give him a prescription for a shoulder compression/support brace which he will obtain at an outside supply store. I did explain to him that if he is able to perform daily activities without pain or limitations there is no further intervention warranted, but if he does develop new onset of pain or any concerns, he will contact our office. Orders: Orders XR shoulder RT min 2V 03/20/23 M25.511 - Pain in right shoulder Medications: New [compression / shoulder support brace] As directed 1 ea 0RF right shoulder instability Patient Instructions: Scribed for Luba Marcos PA-C, by Josafat Soares medical records coder, on 03/20/2023 at 2:45 PM EST. Luba Fletcher PA-C, have personally reviewed and agree with the information entered by the scribe. Coding Level of Care Code Est Pt Level 3 (32880) Diagnoses Proximal humeral fracture S42.209A
[2023-03-20 14:48] VITALS: BMI 26.0
== END 2023-03-20 15:36 | disposition home or self-care (01) ==
PROVIDERS: PCP Family Medicine; Visit Provider Physician Assistant
DX: S42.209A Unspecified fracture of upper end of unspecified humerus, initial encounter for closed fracture (principal)
CPT/HCPCS: 99213

== ENCOUNTER 2023-04-01 14:13 | Outpatient (AMB) | payer OTHER, SELFPAY ==
[2023-04-01 14:23] VITALS: BP 114/69; PULSE 61; BMI 27.1
--- NOTE | 2023-04-01 14:23 | MHC.OFFVIS ---
Intake Vital Signs 04/01/23 14:23 Height 5 ft 8 in Weight 178 lb BMI 27.1 BP 114/69 Blood Pressure Location Rt brachial Position Sitting Pulse 61 Intake Visit Reasons: Exc subcutaneous nodule Intake Note: Patient here for exc of cyst on back. C/o new cyst on Lt flank. This was I&D by PCP 2 wks ago. States healing well. Filament Tester Required: No Accompanied by: Spouse Allergies No Known Allergies Allergy (Verified 04/01/23 14:25) HPI Exc subcutaneous nodule HPI Details He is here for excision of a cyst from the back. [facility] Medical History Anxiety BPH (benign prostatic hyperplasia) Chronic neck pain Depressed Epidermal cyst GERD (gastroesophageal reflux disease) Hyperlipidemia Nicotine dependence, cigarettes, uncomplicated Surgical History History of arthroscopic surgery of shoulder History of basal cell carcinoma excision History of carpal tunnel surgery History of incisional hernia repair History of inguinal hernia repair History of umbilical hernia repair Social History Alcohol intake: current Alcohol intake frequency: holidays/special occasions only Alcohol type: beer Patient Tobacco Use Status: Current everyday Tobacco user Tobacco use type: Cigarette Cigarette Packs Per Day: 1 Cigarettes Per Day: 20.0 Years Smoked: (current smoker, onset 10yo, 1ppd x 42yrs, 40pyh) Current occupational status: disabled Current occupation: rt hand Office Procedures Excision Details: He was placed in prone position. The area of the cyst was prepped and draped. Lidocaine 1% was used for local anesthesia. An incision made on the skin overlying this cyst using blade 15 and this carried down through the full-thickness of the skin sharply to remove this entire indurated area. This cyst was about 1.2 cm in diameter. This was sent as specimen. The incision was closed with full-thickness nylon 3-0 interrupted sutures. Dressings were applied. The procedure was completed. He tolerated procedure well. There were no immediate complications. [id number]/arms/legs 1.1-2cm Procedure code (CPT) selection complete Assessment & Plan Assessment & Plan (1) Epidermal cyst: Code(s): L72.0 - Epidermal cyst Plan: Status post excision. He tolerated procedure well. There were no immediate complications. There was minimal blood loss. Was given wound care instructions. Coding Level of Care Code Procedure Only Diagnoses Epidermal cyst L72.0 CPT Codes Trunk/Arms/Legs - CPT: 24141-herxj/arms/legs 1.1-2cm ([id number])
== END 2023-04-01 14:45 | disposition home or self-care (01) ==
PROVIDERS: PCP Family Medicine; Visit Provider Surgery
DX: L72.0 Epidermal cyst (principal)
CPT/HCPCS: 11402

== ENCOUNTER 2023-04-01 14:13 | Outpatient (REF) | payer OTHER, SELFPAY | END 2023-04-01 14:14 | disposition home or self-care (01) | LOC: HO.LNP 14:13 | PROVIDERS: PCP Family Medicine; Visit Provider Surgery | DX: L72.0 Epidermal cyst (principal) | CPT/HCPCS: 11402; 88304 ==

== ENCOUNTER 2023-04-15 11:23 | Outpatient (AMB) | payer OTHER, SELFPAY ==
[2023-04-15 11:24] VITALS: BP 111/66; PULSE 60; BMI 26.8
--- NOTE | 2023-04-15 11:24 | A.OFFVIS_ITS ---
Intake Vital Signs 04/15/23 11:24 Height 5 ft 8 in Weight 176 lb BMI 26.8 BP 111/66 Blood Pressure Location Rt brachial Position Sitting Pulse 60 Intake Visit Reasons: s/p excision subcutaneous nodule Intake Note: This patient presents for a post-op assessment status post excision subcutaneous nodule. Patient c/o; reports no complaints at this time. Wwe Wrestler Required: Yes Wwe Wrestler Language: Chemical Engineering Teacher Name: Kit Information Interpreted: non-clinical & clinical Accompanied by: Self / Same As Patient Allergies No Known Allergies Allergy (Verified 04/15/23 11:25) HPI s/p excision subcutaneous nodule HPI Details He underwent excision of an epidermal inclusion cyst from the back under local anesthesia in the office last 04/01/2023. He tolerated the procedure well. He currently denies significant complaints. [facility] Medical History Epidermal cyst Nicotine dependence, cigarettes, uncomplicated Chronic neck pain BPH (benign prostatic hyperplasia) Hyperlipidemia GERD (gastroesophageal reflux disease) Depressed Anxiety Surgical History Hx of surgical procedure (~04/01/23) History of incisional hernia repair History of carpal tunnel surgery History of umbilical hernia repair History of inguinal hernia repair History of basal cell carcinoma excision History of arthroscopic surgery of shoulder Social History Alcohol intake: current Alcohol intake frequency: holidays/special occasions only Alcohol type: beer Patient Tobacco Use Status: Current everyday Tobacco user Tobacco use type: Cigarette Cigarette Packs Per Day: 1 Cigarettes Per Day: 20.0 Years Smoked: (current smoker, onset 10yo, 1ppd x 42yrs, 40pyh) Current occupational status: disabled Current occupation: rt hand Review of Systems Const Denies chills and Denies fever(s) Card Denies chest pain, Denies dyspnea and Denies dyspnea on exertion Resp Denies cough, Denies dyspnea and Denies dyspnea on exertion GI Denies hematochezia and Denies change in bowel habits Denies hematuria and Denies difficulty urinating Musc Denies back pain and Denies limited range of motion Neuro Denies focal weakness and Denies convulsions Psych Denies depression and Denies mood swings Physical Exam Vital Signs: Last Vital Signs Pulse 60 04/15/23 11:24 BP 111/66 04/15/23 11:24 BMI result Body Mass Index 26.8 Const General: comfortable and no acute distress Back/Spine/Pelvis Other: Excision site is well healed, not infected, sutures intact Assessment & Plan Assessment & Plan (1) Epidermal cyst: Code(s): L72.0 - Epidermal cyst Plan: Status post excision. His incision is well healed. I removed his sutures. His path report shows an epidermal inclusion cyst. He can follow up on a p.r.n. basis. Coding Level of Care Code Global (95262) Diagnoses Epidermal cyst L72.0
== END 2023-04-15 11:37 | disposition home or self-care (01) ==
PROVIDERS: PCP Family Medicine; Visit Provider Surgery
DX: L72.0 Epidermal cyst (principal)
CPT/HCPCS: 99024

== ENCOUNTER → 2023-04-15 11:23 | Outpatient (BNVA) | payer OTHER, SELFPAY | PROVIDERS: PCP Family Medicine; Visit Provider Surgery ==

== ENCOUNTER 2023-07-10 13:36 | Outpatient (REF) | payer OTHER, SELFPAY | END 2023-07-10 13:37 | disposition home or self-care (01) | LOC: HO.HHCLNP 13:36 | PROVIDERS: Visit Provider Emergency Medicine | DX: R05.9 Cough, unspecified (principal) | CPT/HCPCS: 87070 ==

== ENCOUNTER 2023-10-30 11:04 | Outpatient (REF) | payer OTHER, SELFPAY ==
--- NOTE | ~2023-10-30 | XR_ITS ---
EXAMINATION: XR CERVICAL SPINE, THORACIC SPINE, LUMBAR SPINE, LEFT KNEE CLINICAL INFORMATION: Patient has had chronic neck, back and right knee pain. Patient had difficulty lifting head and repeated lateral so mandible would not obstruct vertebral bodies per technologist statement. Best possible attempts. COMPARISON: CT chest 02/20/2023. Radiographs lumbar spine 12/11/2022. Radiographs ribs chest 09/19/2022. TECHNIQUE: 5 views of the cervical spine. 4 views of the left knee. 3 views of the thoracic spine. 3 views of the lumbar spine. FINDINGS: Cervical Spine: There is appearance of fusion of C2-C3 and correlation with clinical history and exam as well as possible CT scan recommended. Moderate multilevel cervical spondylosis. Left Knee: Moderate suprapatellar effusion. A few calcifications in the soft tissues of indeterminate etiology. Small posterior patellar osteophytes. Medial and lateral compartments are preserved. Thoracic Spine: Slight rightward curvature of the thoracic spine. Moderate multilevel degenerative changes in the thoracic spine. Redemonstration of mild compression deformity of T12 vertebral body also noted on 12/11/2022 exam. Lumbar Spine: Moderate degenerative changes in the bilateral sacroiliac joints. Slight rightward curvature of the lumbar spine. Facet arthritis in the lower lumbar spine. Lumbar spondylosis with hypertrophic change and loss of disc space height at L1-L2. Mild anterior loss of height at L1 also noted on 12/11/2022 exam. Posterior subluxation of the coccyx seen on [id number] view on 12/11/2022 radiographs redemonstrated. XR/XR cervical spine 3V IMPRESSION: 1. There is appearance of fusion of C2-C3 and correlation with clinical history and exam as well as possible CT scan recommended. 2. Moderate multilevel cervical spondylosis. 3. Moderate suprapatellar effusion. A few calcifications in the soft tissues of indeterminate etiology. 4. Moderate multilevel degenerative changes in the thoracic spine. 5. Moderate degenerative changes in the bilateral sacroiliac joints. 6. Lumbar spondylosis with hypertrophic change and loss of disc space height at L1-L2. 7. Mild anterior loss of height at T12 and L1 also noted on 12/11/2022 exam. 8. Posterior subluxation of the coccyx seen on [id number] view on 12/11/2022 radiographs redemonstrated.
--- NOTE | ~2023-10-30 | XR_ITS ---
EXAMINATION: XR CERVICAL SPINE, THORACIC SPINE, LUMBAR SPINE, LEFT KNEE CLINICAL INFORMATION: Patient has had chronic neck, back and right knee pain. Patient had difficulty lifting head and repeated lateral so mandible would not obstruct vertebral bodies per technologist statement. Best possible attempts. COMPARISON: CT chest 02/20/2023. Radiographs lumbar spine 12/11/2022. Radiographs ribs chest 09/19/2022. TECHNIQUE: 5 views of the cervical spine. 4 views of the left knee. 3 views of the thoracic spine. 3 views of the lumbar spine. FINDINGS: Cervical Spine: There is appearance of fusion of C2-C3 and correlation with clinical history and exam as well as possible CT scan recommended. Moderate multilevel cervical spondylosis. Left Knee: Moderate suprapatellar effusion. A few calcifications in the soft tissues of indeterminate etiology. Small posterior patellar osteophytes. Medial and lateral compartments are preserved. Thoracic Spine: Slight rightward curvature of the thoracic spine. Moderate multilevel degenerative changes in the thoracic spine. Redemonstration of mild compression deformity of T12 vertebral body also noted on 12/11/2022 exam. Lumbar Spine: Moderate degenerative changes in the bilateral sacroiliac joints. Slight rightward curvature of the lumbar spine. Facet arthritis in the lower lumbar spine. Lumbar spondylosis with hypertrophic change and loss of disc space height at L1-L2. Mild anterior loss of height at L1 also noted on 12/11/2022 exam. Posterior subluxation of the coccyx seen on [id number] view on 12/11/2022 radiographs redemonstrated. XR/XR thoracic spine 2V IMPRESSION: 1. There is appearance of fusion of C2-C3 and correlation with clinical history and exam as well as possible CT scan recommended. 2. Moderate multilevel cervical spondylosis. 3. Moderate suprapatellar effusion. A few calcifications in the soft tissues of indeterminate etiology. 4. Moderate multilevel degenerative changes in the thoracic spine. 5. Moderate degenerative changes in the bilateral sacroiliac joints. 6. Lumbar spondylosis with hypertrophic change and loss of disc space height at L1-L2. 7. Mild anterior loss of height at T12 and L1 also noted on 12/11/2022 exam. 8. Posterior subluxation of the coccyx seen on [id number] view on 12/11/2022 radiographs redemonstrated.
--- NOTE | ~2023-10-30 | XR_ITS ---
EXAMINATION: XR CERVICAL SPINE, THORACIC SPINE, LUMBAR SPINE, LEFT KNEE CLINICAL INFORMATION: Patient has had chronic neck, back and right knee pain. Patient had difficulty lifting head and repeated lateral so mandible would not obstruct vertebral bodies per technologist statement. Best possible attempts. COMPARISON: CT chest 02/20/2023. Radiographs lumbar spine 12/11/2022. Radiographs ribs chest 09/19/2022. TECHNIQUE: 5 views of the cervical spine. 4 views of the left knee. 3 views of the thoracic spine. 3 views of the lumbar spine. FINDINGS: Cervical Spine: There is appearance of fusion of C2-C3 and correlation with clinical history and exam as well as possible CT scan recommended. Moderate multilevel cervical spondylosis. Left Knee: Moderate suprapatellar effusion. A few calcifications in the soft tissues of indeterminate etiology. Small posterior patellar osteophytes. Medial and lateral compartments are preserved. Thoracic Spine: Slight rightward curvature of the thoracic spine. Moderate multilevel degenerative changes in the thoracic spine. Redemonstration of mild compression deformity of T12 vertebral body also noted on 12/11/2022 exam. Lumbar Spine: Moderate degenerative changes in the bilateral sacroiliac joints. Slight rightward curvature of the lumbar spine. Facet arthritis in the lower lumbar spine. Lumbar spondylosis with hypertrophic change and loss of disc space height at L1-L2. Mild anterior loss of height at L1 also noted on 12/11/2022 exam. Posterior subluxation of the coccyx seen on [id number] view on 12/11/2022 radiographs redemonstrated. XR/XR lumbar spine 2-3V IMPRESSION: 1. There is appearance of fusion of C2-C3 and correlation with clinical history and exam as well as possible CT scan recommended. 2. Moderate multilevel cervical spondylosis. 3. Moderate suprapatellar effusion. A few calcifications in the soft tissues of indeterminate etiology. 4. Moderate multilevel degenerative changes in the thoracic spine. 5. Moderate degenerative changes in the bilateral sacroiliac joints. 6. Lumbar spondylosis with hypertrophic change and loss of disc space height at L1-L2. 7. Mild anterior loss of height at T12 and L1 also noted on 12/11/2022 exam. 8. Posterior subluxation of the coccyx seen on [id number]-[id number]-ebduizp view on 12/11/2022 radiographs redemonstrated.
--- NOTE | ~2023-10-30 | XR_ITS ---
EXAMINATION: XR CERVICAL SPINE, THORACIC SPINE, LUMBAR SPINE, LEFT KNEE CLINICAL INFORMATION: Patient has had chronic neck, back and right knee pain. Patient had difficulty lifting head and repeated lateral so mandible would not obstruct vertebral bodies per technologist statement. Best possible attempts. COMPARISON: CT chest 02/20/2023. Radiographs lumbar spine 12/11/2022. Radiographs ribs chest 09/19/2022. TECHNIQUE: 5 views of the cervical spine. 4 views of the left knee. 3 views of the thoracic spine. 3 views of the lumbar spine. FINDINGS: Cervical Spine: There is appearance of fusion of C2-C3 and correlation with clinical history and exam as well as possible CT scan recommended. Moderate multilevel cervical spondylosis. Left Knee: Moderate suprapatellar effusion. A few calcifications in the soft tissues of indeterminate etiology. Small posterior patellar osteophytes. Medial and lateral compartments are preserved. Thoracic Spine: Slight rightward curvature of the thoracic spine. Moderate multilevel degenerative changes in the thoracic spine. Redemonstration of mild compression deformity of T12 vertebral body also noted on 12/11/2022 exam. Lumbar Spine: Moderate degenerative changes in the bilateral sacroiliac joints. Slight rightward curvature of the lumbar spine. Facet arthritis in the lower lumbar spine. Lumbar spondylosis with hypertrophic change and loss of disc space height at L1-L2. Mild anterior loss of height at L1 also noted on 12/11/2022 exam. Posterior subluxation of the coccyx seen on [id number] view on 12/11/2022 radiographs redemonstrated. XR/XR knee LT 4V IMPRESSION: 1. There is appearance of fusion of C2-C3 and correlation with clinical history and exam as well as possible CT scan recommended. 2. Moderate multilevel cervical spondylosis. 3. Moderate suprapatellar effusion. A few calcifications in the soft tissues of indeterminate etiology. 4. Moderate multilevel degenerative changes in the thoracic spine. 5. Moderate degenerative changes in the bilateral sacroiliac joints. 6. Lumbar spondylosis with hypertrophic change and loss of disc space height at L1-L2. 7. Mild anterior loss of height at T12 and L1 also noted on 12/11/2022 exam. 8. Posterior subluxation of the coccyx seen on [id number]-[id number] view on 12/11/2022 radiographs redemonstrated.
[2023-10-30 13:49] LABS: Hematocrit 49.1 % (42.0-52.0); Hemoglobin 16.6 g/dl (14.0-18.0); Mean Corpuscular HGB Conc 33.8 g/dl (31.0-36.0); Mean Corpuscular Hemoglobin 32.2 pg (27.0-33.0); Mean Corpuscular Volume 95.2 fL (80.0-98.0); Mean Platelet Volume 9.5 fL (9.4-12.4); Platelet Count 237 X10*3/uL (160-400); Red Blood Count 5.16 X10*6/uL (4.60-5.80); Red Cell Distribution Width 12.6 % (11.0-16.0); White Blood Count 9.8 X10*3/uL (4.8-10.8)
[2023-10-30 14:09] LABS: Estimated Average Glucose 108 mg/dL; Hemoglobin A1c % 5.4 % (<6.0)
[2023-10-30 14:11] LABS: Alanine Aminotransferase 13 U/L (0-40); Albumin Level 4.4 g/dL (3.5-5.0); Alkaline Phosphatase 75 U/L (39-117); Anion Gap 10 (12-20); Aspartate Amino Transferase 20 U/L (5-37); Bilirubin Direct 0.2 mg/dL (0.0-0.5); Bilirubin Total 0.5 mg/dL (0.0-1.0); Blood Urea Nitrogen 11 mg/dL (9-16); Calcium 9.7 mg/dL (8.4-10.2); Carbon Dioxide 30 mmol/L (22-29); Chloride 103 mmol/L (96-108); Cholesterol 253 mg/dL (<200); Estimated Glomerular Filt Rate > 60; Glucose Random 92 mg/dL (60-115); HDL Cholesterol 61 mg/dL (>40); LDL Cholesterol Calculated 170 mg/dL (<100); Potassium 4.4 mmol/L (3.3-5.1); Sodium 139 mmol/L (135-145); Total Protein 7.5 g/dL (6.5-8.0); Triglycerides 114 mg/dL (<150)
[2023-10-30 14:33] LABS: Free T4 (Free Thyroxine) 0.88 ng/dL (0.71-1.85)
[2023-10-30 15:48] LABS: CT PCR NOT DETECTED (Not Detect.); NG PCR NOT DETECTED (Not Detect.)
[2023-10-31 07:12] LABS: HIV AB/AG Nonreactive (Nonreactive); HIV Num 1 0.05 S/CO (0.00-0.99)
[2023-10-31 13:38] LABS: RPR Rapid Plasma Reagin NON-REACTIVE (NON-REACTIVE)
== END 2023-10-30 11:05 | disposition home or self-care (01) ==
LOC: HO.HHCL 11:04
PROVIDERS: Visit Provider Family Medicine
DX: Z00.00 Encounter for general adult medical examination without abnormal findings (principal); M54.2 Cervicalgia; M54.9 Dorsalgia, unspecified; G89.29 Other chronic pain; M25.562 Pain in left knee; Z20.2 Contact with and (suspected) exposure to infections with a predominantly sexual mode of transmission
CPT/HCPCS: 0353U; 36415; 72040; 72070; 72100; 73564; 80048; 80061; 80076; 83036; 84439; 85027; 86592; 87389

== ENCOUNTER 2024-02-12 11:05 | Outpatient (REF) | payer OTHER, SELFPAY ==
[2024-02-12 13:24] LABS: Hematocrit 45.4 % (42.0-52.0); Hemoglobin 15.6 g/dl (14.0-18.0); Mean Corpuscular HGB Conc 34.4 g/dl (31.0-36.0); Mean Corpuscular Hemoglobin 32.5 pg (27.0-33.0); Mean Corpuscular Volume 94.6 fL (80.0-98.0); Mean Platelet Volume 9.2 fL (9.4-12.4); Platelet Count 239 X10*3/uL (160-400); Red Cell Distribution Width 12.9 % (11.0-16.0); White Blood Count 8.3 X10*3/uL (4.8-10.8)
[2024-02-12 13:40] LABS: Estimated Average Glucose 117 mg/dL; Hemoglobin A1C 157.5974 umol/L; Hemoglobin A1c % 5.7 % (<6.0)
[2024-02-12 14:06] LABS: Alanine Aminotransferase 19 U/L (0-40); Albumin Level 4.3 g/dL (3.5-5.0); Alkaline Phosphatase 70 U/L (39-117); Anion Gap 11 (12-20); Aspartate Amino Transferase 19 U/L (5-37); Bilirubin Direct 0.1 mg/dL (0.0-0.5); Bilirubin Total 0.4 mg/dL (0.0-1.0); Blood Urea Nitrogen 11 mg/dL (9-16); Calcium 9.9 mg/dL (8.4-10.2); Carbon Dioxide 28 mmol/L (22-29); Chloride 106 mmol/L (96-108); Cholesterol 158 mg/dL (<200); Estimated Glomerular Filt Rate > 60; Free T4 (Free Thyroxine) 0.83 ng/dL (0.71-1.85); Glucose Random 75 mg/dL (60-115); HDL Cholesterol 51 mg/dL (>40); LDL Cholesterol Calculated 89 mg/dL (<100); Potassium 4.3 mmol/L (3.3-5.1); Sodium 141 mmol/L (135-145); Thyroid Stimulating Hormone 0.58 uIU/mL (0.32-4.0); Total Protein 7.1 g/dL (6.5-8.0); Triglycerides 93 mg/dL (<150); Vitamin D 25-OH Total 37.7 ng/mL (>30)
[2024-02-12 14:20] LABS: Prostate Specific Antigen Scr 5.21 ng/mL (<0.05-4.0)
[2024-02-16 15:29] LABS: Testosterone, Total 534 ng/dL (250-1100)
== END 2024-02-12 11:06 | disposition home or self-care (01) ==
LOC: HO.HHCL 11:05
PROVIDERS: Visit Provider Family Medicine
DX: R53.83 Other fatigue (principal); N40.0 Benign prostatic hyperplasia without lower urinary tract symptoms; Z12.5 Encounter for screening for malignant neoplasm of prostate; Z13.1 Encounter for screening for diabetes mellitus
CPT/HCPCS: 36415; 80048; 80061; 80076; 82306; 83036; 84153; 84403; 84439; 84443; 85027

== ENCOUNTER → 2024-02-17 09:50 | Outpatient (REF) | payer OTHER, SELFPAY | LOC: HO.SL 09:50 | PROVIDERS: PCP Family Medicine; Visit Provider Family Medicine | DX: Z13.89 Encounter for screening for other disorder (principal) ==

== ENCOUNTER 2024-03-26 16:20 | Outpatient (AMB) | payer OTHER, SELFPAY ==
--- NOTE | 2024-03-26 14:32 | A.OFFVIS_ITS ---
Intake Visit Reasons: Current Smoker Allergies No Known Allergies Allergy (Verified 07/11/23 15:10) HPI HPI Current Smoker: Details: Initial telehealth visit via phone for this 54yo smoker with a 40PYH. Patient has been smoking since age 10 for 44 years at 1ppd. . Denies marijuana use. Denies second hand smoke exposure. Denies exposure to chemicals or substances like asbestos. . Denies known family history of lung cancer. Denies personal history of cancers. . Denies chest CT in last year. He had chest CT done 02/2023 which was stable and was followed by Dr. Cortez who advise he join Lung Screening . Denies recent travel outside the [place]. Denies recent respiratory illness or recent hospitalization for respiratory issues. Reports testing positive for COVID. Admits receiving COVID Vaccine. x 2. . Denies fever, chills, new/worsening cough, hemoptysis, hoarseness or dysphagia. Denies significant chest pain, significant dyspnea or unintentional weight loss. Patient Lung Cancer Screening Questionnaire reviewed with patient by provider. . Shared Decision Making Completed. Patient meets criteria. Discussed in detail with patient, the risk vs benefit of LDCT screening. Patient consents to proceed with scan. Discussed smoking cessation. [facility] Medical History (Updated 03/26/24 @ 14:36 by Vanessa Larose PA-C) Hyperlipidemia GERD (gastroesophageal reflux disease) BPH (benign prostatic hyperplasia) Nicotine dependence, cigarettes, uncomplicated Depressed Anxiety Chronic neck pain Epidermal cyst Surgical History (System 07/11/23 @ 15:10 by Radha Kramer) Hx of surgical procedure (~04/01/23) History of incisional hernia repair History of carpal tunnel surgery History of umbilical hernia repair History of inguinal hernia repair History of basal cell carcinoma excision History of arthroscopic surgery of shoulder Social History (Updated 03/26/24 @ 14:40 by Vanessa Larose PA-C) Alcohol intake: current Alcohol intake frequency: holidays/special occasions only Alcohol type: beer Patient Tobacco Use Status: Current everyday Tobacco user Tobacco use type: Cigarette Cigarette Packs Per Day: 1 Cigarettes Per Day: 20.0 Years Smoked: (current smoker, onset 10yo, 1ppd x 44yrs, 40pyh) Current occupational status: disabled Current occupation: rt hand Telehealth Telehealth Telehealth Platform: Telephone Location of provider rendering services: practice address Location of patient: address on file Patient Identification confirmed using: Name, : Yes Telehealth method: voice only Patient verbally consented to treatment: Yes Patient verbally consented to billing insurance company: Yes Patient informed of any privacy concerns related to visit: Yes Minutes spent on Phone/Video with Pt.: 15 Assessment & Plan Assessment & Plan (1) Nicotine dependence, cigarettes, uncomplicated: Comment: (current smoker, onset 10yo, 1ppd x 44yrs, 40pyh) Code(s): F17.210 - Nicotine dependence, cigarettes, uncomplicated Category: Medical Plan: - SDM visit completed today via phone. - Patient meets criteria for LDCT for lung cancer screening purposes and is asymptomatic. - Smoking cessation counseling offered. Patients can always call [phone]. - Will arrange for a LDCT scan of the chest for screening purposes at [facility]. - Risks, benefits, and alternatives were discussed in detail and the patient agrees to proceed. - Risks discussed include but are not limited to: radiation exposure, anxiety during testing and while awaiting results, false negatives, false positives and possibility of additional intervention such as further imaging or surgical procedures for benign disease. - Benefits are obviously detection of lung cancer at an early stage which can lead to improved outcomes. - Discussed the importance of screening program compliance with adherence to yearly LDCT scan as scheduled - or sooner interval scans for personalized screening regimen. - Discussed follow up plan. Our office will send a letter discussing results and if needed set up phone call and office visit based on CT findings. - Patient educated on results categorization and the management decisions for suspicious findings potentially found on the screening LDCT scan. Any patient with a Lung RADS score of 3 or 4 will be reviewed by a multidisciplinary team at [facility] to form a plan of action in regards to scan findings. - If further work up is warranted for a suspicious lung finding this will be followed by the Lung Cancer Screening program in conjunction with the Thoracic Surgery Department at [facility]. - A copy of the office note and LDCT will be sent to the patient's PCP - as well as documentation on any associated further plans of care. - Incidental findings on LDCT are the PCP's responsibility. These findings are indicated with an S finding on the LDCT Assessment. A note discussing the findings will be sent to the PCP who is then responsible for further management. - All questions answered.? Coding Level of Care Code Lung Cancer Screening G0296 Diagnoses Nicotine dependence, cigarettes, uncomplicated F17.210
== END 2024-03-26 16:20 | disposition home or self-care (01) ==
LOC: HO.HPS 16:20
PROVIDERS: PCP Family Medicine; Referring Provider Family Medicine; Visit Provider Physician Assistant Medical
DX: F17.210 Nicotine dependence, cigarettes, uncomplicated (principal)
CPT/HCPCS: G0296

== ENCOUNTER → 2024-03-26 16:20 | Outpatient (BNVA) | payer OTHER, SELFPAY | PROVIDERS: PCP Family Medicine; Visit Provider Physician Assistant Medical | DX: F17.210 Nicotine dependence, cigarettes, uncomplicated (principal); Z71.6 Tobacco abuse counseling | CPT/HCPCS: G0296 ==

== ENCOUNTER 2024-04-16 09:58 | Outpatient (REF) | payer OTHER, SELFPAY ==
--- NOTE | ~2024-04-16 | XR_ITS ---
EXAMINATION: XR KNEE, BILATERAL CLINICAL INFORMATION: M25.562 - Pain in left knee COMPARISON: Left knee radiographs 10/30/2023 TECHNIQUE: AP standing view of both knees. Lateral and sunrise views of the left knee. FINDINGS: Mild tricompartmental osteoarthritis of both knees with small marginal osteophytes. No left knee joint effusion. No fracture. Enthesophyte of the left tibial tubercle. XR/XR knee LT 3V IMPRESSION: Mild tricompartmental osteoarthritis of both knees. Electronically signed by: Anthony Gonzalez MD 04/22/2024 12:32 PM EDT
--- NOTE | ~2024-04-16 | XR_ITS ---
EXAMINATION: XR KNEE, BILATERAL CLINICAL INFORMATION: M25.562 - Pain in left knee COMPARISON: Left knee radiographs 10/30/2023 TECHNIQUE: AP standing view of both knees. Lateral and sunrise views of the left knee. FINDINGS: Mild tricompartmental osteoarthritis of both knees with small marginal osteophytes. No left knee joint effusion. No fracture. Enthesophyte of the left tibial tubercle. XR/XR knee RT 1V IMPRESSION: Mild tricompartmental osteoarthritis of both knees. Electronically signed by: Anthony Gonzalez MD 04/22/2024 12:32 PM EDT
== END 2024-04-16 09:59 | disposition home or self-care (01) ==
LOC: HO.XRAY 09:58
PROVIDERS: PCP Family Medicine; Visit Provider Physician Assistant
DX: M17.12 Unilateral primary osteoarthritis, left knee (principal); M25.561 Pain in right knee
CPT/HCPCS: 73560; 73562; 99212

== ENCOUNTER 2024-04-16 10:42 | Outpatient (AMB) | payer OTHER, SELFPAY ==
[2024-04-16 10:44] VITALS: BMI 27.4
--- NOTE | 2024-04-16 10:44 | A.OFFVIS_ITS ---
Vital Signs 04/16/24 10:44 Height 5 ft 8 in Weight 180 lb BMI 27.4 Intake Visit Reasons: NewProb-Left knee pain Intake Note: Rudy a 54 year old male who presents today for an evaluation of left knee pain. Patient reports his knee pain has been present for about a month and is located at the anterior and medial aspect of knee. Denies injury. No previous tx. He states his pain is worse at night and he uses a pillow between his leg due to the tenderness at the medial aspect of knee. Finds little relief with ibuprofen. Allergies No Known Allergies Allergy (Verified 04/16/24 10:52) HPI HPI NewProb-Left knee pain: Details: 54-year-old male who presents in the office today for an evaluation of left knee pain .? ? While in the office today, the patient reports his left knee pain has been present for a month. He claims the pain is on the anterior and medial aspect of the left knee. He states the pain increases at night and he uses a pillow between the bilateral lower extremities due to tenderness to palpation at the medial aspect of the left knee. He finds relief with ibuprofen. He denies any prior injury. He also denies any previous treatments. ? ? He denies a history of knee surgery. ? [facility] Medical History (Updated 04/16/24 @ 10:59 by Kamla Moreno) Hyperlipidemia GERD (gastroesophageal reflux disease) BPH (benign prostatic hyperplasia) Nicotine dependence, cigarettes, uncomplicated Depressed Anxiety Chronic neck pain Epidermal cyst Surgical History Hx of surgical procedure (~04/01/23) History of incisional hernia repair History of carpal tunnel surgery History of umbilical hernia repair History of inguinal hernia repair History of basal cell carcinoma excision History of arthroscopic surgery of shoulder Social History Alcohol intake: current Alcohol intake frequency: holidays/special occasions only Alcohol type: beer Patient Tobacco Use Status: Current everyday Tobacco user Tobacco use type: Cigarette Cigarette Packs Per Day: 1 Cigarettes Per Day: 20.0 Years Smoked: (current smoker, onset 10yo, 1ppd x 44yrs, 40pyh) Current occupational status: disabled Current occupation: rt hand Review of Systems Const All systems reviewed & are unremarkable except as noted in HPI and below Physical Exam Vital Signs: BMI result Body Mass Index 27.4 Const General: cooperative, healthy appearing and no acute distress Resp Effort & Inspection: normal respiratory effort and able to speak in complete sentences Cardio Rate: regular rate Peripheral pulses: Peripheral pulses 2+ throughout GI Palpation (GI): Soft to palpation Skin Lesions: no lesions Rashes: no rashes Extrem Other: Left knee: Normal to inspection. No ecchymosis, erythema, or joint effusion. No tenderness to palpation along the lateral joint line. Tenderness to palpation along the medial joint line. Full knee extension and flexion. Negative Zoë's. Negative anterior drawer. NVI.?? Assessment & Plan Assessment & Plan (1) Osteoarthritis of left knee: Code(s): M17.12 - Unilateral primary osteoarthritis, left knee Category: Medical Plan Mr. Rhona Hardwick is a 54-year-old male who presents in the office today for an evaluation of left knee pain .? ? While in the office today, the patient reports his left knee pain has been present for a month. He claims the pain is on the anterior and medial aspect of the left knee. He states the pain increases at night and he uses a pillow between the bilateral lower extremities due to tenderness to palpation at the medial aspect of the left knee. He finds relief with ibuprofen. He denies any prior injury. He also denies any previous treatments. ? ? He denies a history of knee surgery.? ? We discussed the role of cortisone injections, but, due to him not having pain in the office today, we agreed to defer. The patient was given a genumed knee brace, off the shelf. He was given my business card to call the office should his pain return to move forward with a cortisone injection. Follow-up will be PRN, or sooner if needed. ? ? X-rays of the left knee which were obtained while in the office today and were reviewed by me, Ivette Stewart PA-C, revealed osteoarthritis.? Orders: Orders XR knee LT 3V Today M25.562 - Pain in left knee Patient Instructions: Scribed by Kamla Moreno medical collections representative, for Ivette Stewart PA-C on at 10:59 am, EST.? Coding Level of Care Code Est Pt Level 3 (38435) Complex EM visit Add On G2211 Diagnoses Osteoarthritis of left knee M17.12
== END 2024-04-16 11:06 | disposition home or self-care (01) ==
LOC: HO.HOS 10:43
PROVIDERS: PCP Family Medicine; Visit Provider Physician Assistant
DX: M17.12 Unilateral primary osteoarthritis, left knee (principal)
CPT/HCPCS: 99213; G2211

== ENCOUNTER → 2024-06-03 13:44 | Outpatient (REF) | payer OTHER, SELFPAY | LOC: HO.SL 13:44 | PROVIDERS: PCP Family Medicine; Visit Provider Family Medicine | DX: Z13.89 Encounter for screening for other disorder (principal) ==

== ENCOUNTER 2024-12-23 10:10 | Outpatient (REF) | payer OTHER, SELFPAY ==
[2024-12-23 11:10] LABS: MANUAL DIFF FLAG NO
[2024-12-23 11:19] LABS: Basophils Percent Auto 0.4 % (0-2); Eosinophils Absolute Auto 0.1 X10*3/uL (0.0-0.4); Eosinophils Percent Auto 1.1 % (0-4); Hematocrit 46.6 % (42.0-52.0); Hemoglobin 16.1 g/dl (14.0-18.0); Imm Gran Abs Auto 0.02 X10*3/uL (0.00-0.03); Imm Gran Pct Auto 0.3 % (0.0-0.4); Lymphocytes Absolute Auto 2.9 X10*3/uL (1.2-4.9); Lymphocytes Percent Auto 36.8 % (20-40); Mean Corpuscular HGB Conc 34.5 g/dl (31.0-36.0); Mean Corpuscular Hemoglobin 32.8 pg (27.0-33.0); Mean Corpuscular Volume 94.9 fL (80.0-98.0); Mean Platelet Volume 9.4 fL (9.4-12.4); Monocytes Absolute Auto 0.4 X10*3/uL (0.1-1.2); Monocytes Percent Auto 5.5 % (2-11); Neutrophils Absolute Auto 4.5 x10*3/uL (2.0-8.3); Neutrophils Percent Auto 55.9 % (45-73); Platelet Count 265 X10*3/uL (160-400); Red Blood Count 4.91 X10*6/uL (4.60-5.80); Red Cell Distribution Width 12.8 % (11.0-16.0)
[2024-12-23 11:41] LABS: Estimated Average Glucose 117 mg/dL; Hemoglobin A1C 160.4246 umol/L; Hemoglobin A1c % 5.7 % (<6.0); Total Hemoglobin (HGBA1C) 4175.2228 umol/L
--- OUTSIDE RECORDS SUMMARY | 2024-12-23 11:41 | XMS_ITS | Encounter Summary ---
Author Organization [facility] Address [address] [place] [address] [address], [place] [address] Care Team Providers Care Mate Chief Name Role Phone Vane Diallo DO Primary Care Provider Reason for Referral * Consultation (Routine) - Pending Review Specialty Diagnoses / Procedures Referred By Srinivasa roman Referred To Contact Dermatology Diagnoses History of basal cell carcinoma Vane Diallo DO [address] [place] [address] Phone: tel: fax: Referral ID Status Reason Start Date Expiration Date Visits Requested Visits Authorized [id number] Pending Review Specialty Services Required 12/23/2024 12/23/2025 1 1 * Medications - Closed Specialty Diagnoses / Procedures Referred By Srinivasa roman Referred To Contact Diagnoses Chronic neck and back pain Vane Diallo DO [address] [place] [address] Phone: tel: fax: Referral ID Status Reason Start Date Expiration Date Visits Re quested Visits Authorized [id number] Closed 1 1 Encounter Details Date Type Department Care Team (Latest Contact Info) Description 12/23/2024 9:30 AM EDT Office Visit [facility] [address] [place] [address] Vane Diallo DO [address] [place], [place] [id number] Chronic bipolar disorder (CMS/HCC) (Primary Dx); Other hyperlipidemia; Chronic gastroesophageal reflux disease; Pulmonary nodule; Benign prostatic hyperplasia, unspecified whether lower urinary tract symptoms present; Elevated PSA; Chronic neck and back pain; Chronic pain of left knee; ROLY (obstructive sleep apnea); History of basal cell carcinoma; Hx of colonic polyps; Healthcare maintenance; BMI 26.0-26.9,adult; Chronic neck pain Social History Tobacco Use Types Packs/Day Years Used Date Smoking Tobacco: Every Day Cigarettes Smokeless Tobacco: Never Alcohol Use Standard Drinks/Week Comments Never 0 (1 standard drink = 0.6 oz pur e alcohol) Depression Answer Date Recorded Patient Health Questionnaire-9 Score 11 12/23/2024 Patient Health Questionnaire-9 Score 11 12/23/2024 Last PHQ-9: Questionnaire Data Not on file 0 12/23/2024 Housing Stability Answer Date Recorded What is your housing situation today? I have svetlanalinda garcia 12/23/[address] you li ve. Do you have problems with any of the following? None of the above 12/23/2024 Food Insecurity Answer Date Recorded Within the past 12 months, y ou worried that your food would run out before you got money to buy more: Never True 12/23/2024 Within the past 12 months,th e food you bought just didn't last and you didn't have enough money to get more: Never True Transportation Answer Date Recorded In the past 12 months, has l ack of transportation kept you from medical appts, meetings, work or from getting things needed for daily living? No 12/23/2024 Utilities Answer Date Recorded In the past 12 months, has t he [employer], gas, oil or water [employer] threatened to shut off services in your home? No 12/23/2024 Depression Answer Date Recorded Patient Health Questionnaire-2 Score 2 12/23/2024 Internet Access Answer Date Recorded Internet Access Q1 Yes 12/23/2024 Internet Access Q2 Not on file 12/23/2024 Sex and Gender Information Value Date Recorded Sex Assigned at Male 10/04/2022 9:54 AM EST Legal Sex Male 9:52 AM EST Gender Identity Male 10/04/2022 9:54 AM EST Sexual Orientation Don't know 10/04/2022 9: 54 AM EST documented as of this encounter Last Filed Vital Signs Vital Sign Reading Time Taken Comments Blood Pressure 128/76 12/23/2024 9:19 AM EDT Pulse 62 12/23/2024 9:19 AM EDT Temperature 36.3 ??C (97.3 ??F) 12/23/2024 9:19 AM ED T Respiratory Rate 21 12/23/2024 9:19 AM EDT Oxygen Saturation 98% 12/23/2024 9:19 AM EDT Inhaled Oxygen Concentration - - Weight 75.8 kg (167 lb) 12/23/2024 9:19 AM EDT Height 172.7 cm (5' 8 ) 12/23/2024 9:19 AM EDT Body Mass Index 25.39 12/23/2024 9:19 AM EDT documented in this encounter Functional Status * Over the past 2 weeks, how often have you been bothered by any of the following problems? Question Answer Date of Assessment Author Patient Health Questionnaire -2 Score 2 12/23/2024 10:00 AM EDT Beth Suarez MA * Little interest or pleasure in doing things Answer Date of Assessment Author Several days 12/23/2024 10:00 AM EDT Beth Suarez MA * Feeling down, depressed, or hopeless Answer Date of Assessment Author Several days 12/23/2024 10:00 AM EDT Beth Suarez MA * Trouble falling or staying asleep, or sleeping too much Answer Date of Assessment Author More than half the days 12/23/2024 10:00 AM EDT Beth Suarez MA * Feeling tired or having little energy Answer Date of Assessment Author More than half the days 12/23/2024 10:00 AM EDT Beth Suarez MA * Poor appetite or overeating Answer Date of Assessment Author Several days 12/23/2024 10:00 AM EDT Beth Suarez MA * Feeling bad about yourself - or that you are a failure or have let yourself or your family down Answer Date of Assessment Author Several days 12/23/2024 10:00 AM ALBAROT Beth Suarez MA * Trouble concentrating on things, such as reading the newspaper or watching television Answer Date of Assessment Author Several days 12/23/2024 10:00 AM Beth Russell MA * Moving or speaking so slowly that other people could have noticed? Or the opposite - being so fidgety or restless that you have been moving around a lot more than usual. Answer Date of Assessment Author More than half the days 12/23/2024 10:00 AM Beth Russell MA * Thoughts that you would be better off or hurting yourself in some way Answer Date of Assessment Author Not at all 12/23/2024 10:00 AM Beth Russell MA * Patient Health Questionnaire-9 Score Answer Date of Assessment Author 11 12/23/2024 10:00 AM Beth Russell MA * How difficult have these problems made it for you to do your work, take care of things at home, or get along with other people? Answer Date of Assessment Author Somewhat difficult 12/23/2024 10:00 AM Beth Carter MA * Over the last 2 weeks, how often have you been bothered by any of the following problems? Question Answer Date of Assessment Author Feeling nervous, anxious, or on edge 3 12/23/2024 10:00 AM Beth Russell MA Not being able to stop or co ntrol worrying 2 12/23/2024 10:00 AM Beth Russell MA Worrying too much about diff erent things 2 12/23/2024 10:00 AM Beth Russell MA Trouble relaxing 2 12/23/2024 10:00 AM Beth Russell MA Being so restless that it is hard to sit still 2 12/23/2024 10:00 AM Beth Russell MA Becoming easily annoyed or irritable 2 12/23/2024 10:00 AM Beth Russell MA Feeling afraid as if somethi ng awful might happen 2 12/23/2024 10:00 AM Beth Russell MA DEYVI-7 Total Score 15 12/23/2024 10:00 AM Beth Russell MA documented as of this encounter Plan of Treatment Scheduled Orders Name Type Priority Associated Diagnoses Orde r Schedule T4, Free Lab Routine Chronic bipolar disorder ([facility]) Other hyperlipidemia Chronic gastroesophageal reflux disease Pulmonary nodule Benign prostatic hyperplasia, unspecified whether lower urinary tract symptoms present Elevated PSA Chronic neck and back pain Chronic pain of left knee ROLY (obstructive sleep apnea) History of basal cell carcinoma Hx of colonic polyps BMI 26.0-26.9,adult Chronic neck pain Expected: 12/23/2024 (Approximate), Expires: 12/23/2025 Lipid Panel, Standard Lab Routine Chronic bipolar disorder ([facility]) Other hyperlipidemia Chronic gastroesophageal reflux disease Pulmonary nodule Benign prostatic hyperplasia, unspecified whether lower urinary tract symptoms present Elevated PSA Chronic neck and back pain Chronic pain of left knee ROLY (obstructive sleep apnea) History of basal cell carcinoma Hx of colonic polyps BMI 26.0-26.9,adult Chronic neck pain Expected: 12/23/2024 (Approximate), Expires: 12/23/2025 TSH Lab Routine Chronic bipolar disorder ([facility]) Other hyperlipidemia Chronic gastroesophageal reflux disease Pulmonary nodule Benign prostatic hyperplasia, unspecified whether lower urinary tract symptoms present Elevated PSA Chronic neck and back pain Chronic pain of left knee ROLY (obstructive sleep apnea) History of basal cell carcinoma Hx of colonic polyps BMI 26.0-26.9,adult Chronic neck pain Expected: 12/23/2024 (Approximate), Expires: 12/23/2025 Vitamin D, 25-Hydroxy, Total, Immunoassay Lab Routine Chronic bipolar disorder ([facility]) Other hyperlipidemia Chronic gastroesophageal reflux disease Pulmonary nodule Benign prostatic hyperplasia, unspecified whether lower urinary tract symptoms present Elevated PSA Chronic neck and back pain Chronic pain of left knee ROLY (obstructive sleep apnea) History of basal cell carcinoma Hx of colonic polyps BMI 26.0-26.9,adult Chronic neck pain Expected: 12/23/2024 (Approximate), Expires: 12/23/2025 Hepatic Function Panel Lab Routine Chronic bipolar disorder ([facility]) Other hyperlipidemia Chronic gastroesophageal reflux disease Pulmonary nodule Benign prostatic hyperplasia, unspecified whether lower urinary tract symptoms present Elevated PSA Chronic neck and back pain Chronic pain of left knee ROLY (obstructive sleep apnea) History of basal cell carcinoma Hx of colonic polyps BMI 26.0-26.9,adult Chronic neck pain Expected: 12/23/2024 (Approximate), Expires: 12/23/2025 Hemoglobin A1c Lab Routine Chronic bipolar disorder ([facility]) Other hyperlipidemia Chronic gastroesophageal reflux disease Pulmonary nodule Benign prostatic hyperplasia, unspecified whether lower urinary tract symptoms present Elevated PSA Chronic neck and back pain Chronic pain of left knee ROLY (obstructive sleep apnea) History of basal cell carcinoma Hx of colonic polyps BMI 26.0-26.9,adult Chronic neck pain Expected: 12/23/2024 (Approximate), Expires: 12/23/2025 Basic Metabolic Panel Lab Routine Chronic bipolar disorder ([facility]) Other hyperlipidemia Chronic gastroesophageal reflux disease Pulmonary nodule Benign prostatic hyperplasia, unspecified whether lower urinary tract symptoms present Elevated PSA Chronic neck and back pain Chronic pain of left knee ROLY (obstructive sleep apnea) History of basal cell carcinoma Hx of colonic polyps BMI 26.0-26.9,adult Chronic neck pain Expected: 12/23/2024 (Approximate), Expires: 12/23/2025 Hepatitis B surface antigen, EIA Lab Routine Chronic bipolar disorder ([facility]) Other hyperlipidemia Chronic gastroesophageal reflux disease Pulmonary nodule Benign prostatic hyperplasia, unspecified whether lower urinary tract symptoms present Elevated PSA Chronic neck and back pain Chronic pain of left knee ROLY (obstructive sleep apnea) History of basal cell carcinoma Hx of colonic polyps BMI 26.0-26.9,adult Chronic neck pain Expected: 12/23/2024 (Approximate), Expires: 12/23/2025 Chlamydia/N. Gonorrhoeae RNA, TMA, Urogenitial Microbiology Routine Chronic bipolar disorder ([facility]) Other hyperlipidemia Chronic gastroesophageal reflux disease Pulmonary nodule Benign prostatic hyperplasia, unspecified whether lower urinary tract symptoms present Elevated PSA Chronic neck and back pain Chronic pain of left knee ROLY (obstructive sleep apnea) History of basal cell carcinoma Hx of colonic polyps BMI 26.0-26.9,adult Chronic neck pain Ordered: 12/23/2024 HIV-1/2 Antigen and Antibodies, Fourth Generation, with Reflexes Lab Routine Chronic bipolar disorder ([facility]) Other hyperlipidemia Chronic gastroesophageal reflux disease Pulmonary nodule Benign prostatic hyperplasia, unspecified whether lower urinary tract symptoms present Elevated PSA Chronic neck and back pain Chronic pain of left knee ROLY (obstructive sleep apnea) History of basal cell carcinoma Hx of colonic polyps BMI 26.0-26.9,adult Chronic neck pain Expected: 12/23/2024 (Approximate), Expires: 12/23/2025 Hepatitis C Antibody with Reflex to HCV, RNA, Quantitative, Real-Time PCR Lab Routine Chronic bipolar disorder (CMS/HCC) Other hyperlipidemia Chronic gastroesophageal reflux disease Pulmonary nodule Benign prostatic hyperplasia, unspecified whether lower urinary tract symptoms present Elevated PSA Chronic neck and back pain Chronic pain of left knee ROLY (obstructive sleep apnea) History of basal cell carcinoma Hx of colonic polyps BMI 26.0-26.9,adult Chronic neck pain Expected: 12/23/2024, Expires: 12/23/2025 RPR (Monitor) with Reflex to??Titer Lab Routine Chronic bipolar disorder ([facility]) Other hyperlipidemia Chronic gastroesophageal reflux disease Pulmonary nodule Benign prostatic hyperplasia, unspecified whether lower urinary tract symptoms present Elevated PSA Chronic neck and back pain Chronic pain of left knee ROLY (obstructive sleep apnea) History of basal cell carcinoma Hx of colonic polyps BMI 26.0-26.9,adult Chronic neck pain Expected: 12/23/2024, Expires: 12/23/2025 Hepatitis B Surface Antibody, Qualitative Lab Routine Chronic bipolar disorder ([facility]) Other hyperlipidemia Chronic gastroesophageal reflux disease Pulmonary nodule Benign prostatic hyperplasia, unspecified whether lower urinary tract symptoms present Elevated PSA Chronic neck and back pain Chronic pain of left knee ROLY (obstructive sleep apnea) History of basal cell carcinoma Hx of colonic polyps BMI 26.0-26.9,adult Chronic neck pain Expected: 12/23/2024 (Approximate), Expires: 12/23/2025 PSA, Screen Lab Routine Chronic bipolar disorder ([facility]) Other hyperlipidemia Chronic gastroesophageal reflux disease Pulmonary nodule Benign prostatic hyperplasia, unspecified whether lower urinary tract symptoms present Elevated PSA Chronic neck and back pain Chronic pain of left knee ROLY (obstructive sleep apnea) History of basal cell carcinoma Hx of colonic polyps BMI 26.0-26.9,adult Chronic neck pain Expected: 12/23/2024 (Approximate), Expires: 12/23/2025 Scheduled Referrals Name Type Priority Associated Diagnoses Order Schedule Referral to Dermatology Outpatient Referral Routine History of basal cell carcinoma Expected: 12/23/2024 (Approximate), Expires: 12/23/2025 documented as of this encounter Procedures Procedure Name Priority Date/Time Associated Diagnosis Comments CBC WITH AUTO DIFFERENTIAL Routine 12/23/2024 10:12 AM EDT Chronic bipolar disorder (CMS/HCC) Other hyperlipidemia Chronic gastroesophageal reflux disease Pulmonary nodule Benign prostatic hyperplasia, unspecified whether lower urinary tract symptoms present Elevated PSA Chronic neck and back pain Chronic pain of left knee ROLY (obstructive sleep apnea) History of basal cell carcinoma Hx of colonic polyps BMI 26.0-26.9,adult Chronic neck pain documented in this encounter Results * CBC auto differential (12/23/2024 10:12 AM EDT) White Blood Count 8.0 4.8 - 10.8 X10*3/uL [facility] Red Blood Count 4.91 4.60 - 5.80 X10*6/uL [facility] Hemoglobin 16.1 14.0 - 18.0 g/dl [facility] Hematocrit 46.6 42.0 - 52.0 % [facility] Mean Corpuscular Volume 94.9 80.0 - 98.0 fL [facility] Mean Corpuscular Hemoglobin 32.8 27.0 - 33.0 pg [facility] Mean Corpuscular HGB Conc 34.5 31.0 - 36.0 g/dl [facility] Red Cell Distribution Width 12.8 11.0 - 16.0 % [facility] Platelet Count 265 160 - 400 X10*3/uL [facility] Mean Platelet Volume 9.4 9.4 - 12.4 fL [facility] Neutrophils Percent Auto 55.9 45 - 73 % [facility] Imm Gran Pct Auto 0.3 0.0 - 0.4 % [facility] Lymphocytes Percent Auto 36.8 20 - 40 % [facility] Monocytes Percent Auto 5.5 2 - 11 % [facility] Eosinophils Percent Auto 1.1 0 - 4 % [facility] Basophils Percent Auto 0.4 0 - 2 % [facility] NRBC Pct Auto 0.0 0.0 - 0.2 /100WBC [facility] Neutrophils Absolute Auto 4.5 2.0 - 8.3 x10*3/uL [facility] Imm Gran Abs Auto 0.02 0.00 - 0.03 X10*3/uL [facility] Lymphocytes Absolute Auto 2.9 1.2 - 4.9 X10*3/uL [facility] Monocytes Absolute Auto 0.4 0.1 - 1.2 X10*3/uL [facility] Eosinophils Absolute Auto 0.1 0.0 - 0.4 X10*3/uL [facility] Basophils Absolute Auto 0.0 0.0 - 0.2 X10*3/uL [facility] NRBC Abs Auto 0.000 0.0 - 0.012 X10*3/uL [facility] Blood Venous blood specimen / Unknown 12/23/2024 10:12 AM EDT 12/23/2024 11:04 AM EDT us Vane Diallo DO LAB BLOOD ORDERABLES Final R esult [facility] [address] [place] [address] [phone] documented in this encounter Visit Diagnoses Diagnosis Chronic bipolar disorder (CMS/HCC)- Primary Other hyperlipidemia Chronic gastroesophageal reflux disease Pulmonary nodule Other diseases of lung, not elsewhere classified Benign prostatic hyperplasia, unspecified whether lower urinary tract symptoms present Elevated PSA Elevated prostate specific antigen (PSA) Chronic neck and back pain Chronic pain of left knee ROLY (obstructive sleep apnea) Obstructive sleep apnea (adult) (pediatric) History of basal cell carcinoma Personal history of other malignant neoplasm of skin Hx of colonic polyps Personal history of colonic polyps Healthcare maintenance BMI 26.0-26.9,adult Chronic neck pain Cervicalgia documented in this encounter Additional Health Concerns Assessment Noted Time PHQ-9 Depression Total Score: 11 025 10:00 AM EDT documented as of this encounter Care Teams Mate Chief Relationship Specialty Start Date End Date Vane Diallo DO [address] [place] [id number] PCP - General Family Medicine 10/04/22 documented as of this encounter
--- OUTSIDE RECORDS SUMMARY | 2024-12-23 11:41 | XMS_ITS | Clinical Summary ---
Author Organization [employer] Address [address] [facility] [address] [place] [address] Care Team Providers Care [employer] Make Up Helper Name Role Phone Vane Diallo Primary Care Provider [phone] Allergies No known active allergies Medications * This document contains information received from the source organization and may not represent a complete record from that organization. pantoprazole (ProtoNix) 40 MG EC tabletIndications:C hronic gastroesophageal reflux disease TAKE 1 TABLET BY MOUTH TWICE DAILY BEFORE BREAKFAST AND DINNER, DO NOT BREAK, CRUSH, DISSOLVE OR CHEW 180 tablet 5 024 Active zolpidem (Ambien) 10 MG tabletIndications:C hronic bipolar disorder (CMS/HCC) Take 1 tablet (10 mg) by mouth if needed at bedtime for sleep. 30 tablet 5 024 Active baclofen (Lioresal) 10 MG tabletIndications:C hronic left-sided low back pain with left-sided sciatica TAKE 1 TABLET BY MOUTH THREE TIMES DAILY IN THE MORNING, AT NOON, AND AT BEDTIME NEEDED FOR MUSCLE SPASMS 60 tablet 3 025 Active finasteride (Proscar) 5 MG tabletIndications:B enign prostatic hyperplasia, unspecified whether lower urinary tract symptoms present TAKE 1 TABLET BY MOUTH EVERY MORNING. DO NOT BREAK, CRUSH, DISSOLVE OR CHEW 30 tablet 5 025 Active tamsulosin (Flomax) 0.4 MG 24 hr capsuleIndications: Benign prostatic hyperplasia, unspecified whether lower urinary tract symptoms present TAKE 1 CAPSULE BY MOUTH EVERY DAY IN THE MORNING AT THE SAME TIME 30 capsule 5 025 Active gabapentin (Neurontin) 800 MG tabletIndications:C hronic neck pain TAKE 1 TABLET BY MOUTH EVERY 6 HOURS 360 tablet 1 Active busPIRone (Buspar) 15 MG tabletIndications:C hronic bipolar disorder (CMS/HCC) Take 1 tablet (15 mg) by mouth 2 times daily. 180 tablet 1 Active risperiDONE (RisperDAL) 1 MG tablet Take 1.5 tablets (1.5 mg) by mouth at bedtime. 135 tablet 1 Active atorvastatin (Lipitor) 80 MG tablet Take 1 tablet (80 mg) by mouth Once per day. 90 tablet 3 2025 Active acetaminophen (Tylenol Extra Strength) 500 MG tablet Take 1 tablet (500 mg) by mouth every 6 (six) hours if needed for mild pain. 100 tablet 2 2025 Active naproxen (Naprosyn) 500 MG tablet Take 1 tablet (500 mg) by mouth if needed in the morning and at bedtime for mild pain. 30 tablet 2 2025 Active lidocaine (Lidoderm) 5 % patchIndications:Ch ronic neck and back pain Apply 2 patches topically if needed each day for mild pain (pain). Remove & discard patch within 12 hours or as directed by MD. 60 patch 3 Active Diclofenac Sodium 1 % gel Apply 2 g topically if needed in the morning, at noon, in the evening, and at bedtime (pain). 150 g 3 Active atorvastatin (Lipitor) 80 MG tablet Take 1 tablet (80 mg) by mouth Once per day. 30 tablet 11 024 2024 Discontinued(R eorder (will not trigger notification to Pharmacy)) busPIRone (Buspar) 15 MG tabletIndications:C hronic bipolar disorder (CMS/HCC) Take 1 tablet (15 mg) by mouth 2 times daily. 180 tablet 3 024 2024 Discontinued(R eorder (will not trigger notification to Pharmacy)) risperiDONE (RisperDAL) 1 MG tablet Take 1.5 tablets (1.5 mg) by mouth at bedtime. 135 tablet 3 024 2024 Discontinued(R eorder (will not trigger notification to Pharmacy)) finasteride (Proscar) 5 MG tabletIndications:B enign prostatic hyperplasia, unspecified whether lower urinary tract symptoms present TAKE 1 TABLET BY MOUTH EVERY MORNING, DO NOT BREAK, CRUSH, DISSOLVE OR CHEW 30 tablet 5 024 2024 Discontinued tamsulosin (Flomax) 0.4 MG 24 hr capsuleIndications: Benign prostatic hyperplasia, unspecified whether lower urinary tract symptoms present TAKE 1 CAPSULE BY MOUTH EVERY DAY IN THE MORNING AT THE SAME TIME 30 capsule 5 024 2024 Discontinued gabapentin (Neurontin) 800 MG tabletIndications:C hronic neck pain TAKE 1 TABLET BY MOUTH EVERY 6 HOURS 360 tablet 024 2024 Discontinued(R eorder (will not trigger notification to Pharmacy)) Diclofenac Sodium 1 % gel Apply 2 g topically if needed in the morning, at noon, in the evening, and at bedtime (pain). 150 g 3 024 2024 Discontinued(R eorder (will not trigger notification to Pharmacy)) lidocaine (Lidoderm) 5 % patchIndications:Ch ronic neck and back pain Apply 2 patches topically if needed each day for mild pain (pain). Remove & discard patch within 12 hours or as directed by MD. 60 patch 3 024 2024 Discontinued(R eorder (will not trigger notification to Pharmacy)) acetaminophen (Tylenol 8 Hour) 650 MG ER tablet TAKE 1 TABLET BY MOUTH EVERY 8 HOURS NEEDED FOR MILD PAIN. DO NOT BREAK, CRUSH, DISSOLVE OR CHEW. 60 tablet 3 025 2024 Discontinued(I neffective) Active Problems Problem Noted Date Diagnosed Date Anxiety 04/07/2024 History of humerus fracture 01/30/2023 Pulmonary nodule 10/31/2022 Tobacco dependence 10/31/2022 Chronic low back pain 10/04/2022 Chronic neck pain 10/04/2022 Chronic bipolar disorder 10/04/2022 Assessment & Plan (12/09/2023 10:29 AM EDT): Presented with psychotic features: Auditory and visual hallucinations. Mood swings. Poor sleep. Chronic anxiety. Chronic pain with opioid pain medication (Tramadol) prn. No ANTONETTE. Denies trauma history. Strong fam hx of BPD, psychosis. Hx hospitalization for SI in 2010, not since. Does have protective factors of family support (lives in apartment in son's home). Did not tolerate starting dose of Quetiapine 25 mg at bedtime with am dizziness. Hallucinations are controlled, anxiety improved. Mood is stable. Will continue Risperidone 1.5 mg at bedtime, Buspirone 15 mg BID,Zolpidem 10 mg at bedtime.. Continue Gabapentin 800 mg TID per PCP. Since this provider will be retiring, patient is now referred back to PCP for further medication management. For any issues or concerns, contact [facility]. All his questions were answered. He agrees with the plan. Assessment & Plan (10/07/2023 10:17 AM EST): Presented with psychotic features: Auditory and visual hallucinations. Mood swings. Poor sleep. Chronic anxiety. Chronic pain with opioid pain medication (Tramadol) prn. No ANTONETTE. Denies trauma history. Strong fam hx of BPD, psychosis. Hx hospitalization for SI in 2010, not since. Does have protective factors of family support (lives in apartment in son's home). Did not tolerate starting dose of Quetiapine 25 mg at bedtime with am dizziness. Hallucinations are still controlled, anxiety improved. Intermittent problems with sleep and some mood changes (wakes up feeling different moods from day to day) persist. Will increase again to Risperidone 1.5 mg at bedtime. Will continue Buspirone 15 mg BID. May continue Zolpidem 10 mg at bedtime.. Continue Gabapentin 800 mg TID per PCP. On 06/04/2023 provider informed pt that I would be retiring and we would make every effort to ensure smooth transition of care. Meanwhile, F/U with me in 2 months. He agrees with the plan. Assessment & Plan (08/08/2023 10:39 AM EST): Presented with psychotic features: Auditory and visual hallucinations. Mood swings. Poor sleep. Chronic anxiety. Chronic pain with opioid pain medication (Tramadol) prn. No ANTONETTE. Denies trauma history. Strong fam hx of BPD, psychosis. Hx hospitalization for SI in 2010, not since. Does have protective factors of family support (lives in apartment in son's home). Did not tolerate starting dose of Quetiapine 25 mg at bedtime with am dizziness. Although hallucinations are still controlled, anxiety and trouble sleeping are bothersome. Will increase to Risperidone 1 mg at bedtime. Will continue Buspirone 15 mg BID. May continue Zolpidem 10 mg at bedtime.. Continue Gabapentin 800 mg TID per PCP. On 06/04/2023 provider informed pt that I would be retiring and we would make every effort to ensure smooth transition of care. Meanwhile, F/U with me in 2 months. He agrees with the plan. Assessment & Plan (06/04/2023 11:12 AM EDT): Presented with psychotic features: Auditory and visual hallucinations. Mood swings. Poor sleep. Chronic anxiety. Chronic pain with opioid pain medication (Tramadol) prn. No ANTONETTE. Denies trauma history. Strong fam hx of BPD, psychosis. Hx hospitalization for SI in 2010, not since. Does have protective factors of family support (lives in apartment in son's home). Did not tolerate starting dose of Quetiapine 25 mg at bedtime with am dizziness. Now doing very well with Risperidone 0.5 mg at bedtime, with stable mood, sleeping well, hallucinations controlled. Will also continue Buspirone 15 mg BID. May continue Zolpidem 10 mg at bedtime.. Continue Gabapentin 800 mg TID per PCP. Encouraged to increase exercise. Today 06/04/2023 provider informed pt that I would be retiring within the next year or so, and we would make every effort to ensure smooth transition of care. F/U with me in 2 months. He agrees with the plan. Assessment & Plan (03/18/2023 9:54 AM EDT): Presented with psychotic features: Auditory and visual hallucinations. Mood swings. Poor sleep. Chronic anxiety. Chronic pain with opioid pain medication (Tramadol) prn. No ANTONETTE. Denies trauma history. Strong fam hx of BPD, psychosis. Hx hospitalization for SI in 2010, not since. Does have protective factors of family support (lives in apartment in son's home). Did not tolerate starting dose of Quetiapine 25 mg at bedtime with am dizziness. Now doing much better with Risperidone 0.5 mg at bedtime, with mood stable, sleeping well, hallucinations controlled. Prefers to continue at this low dose for now. Will also continue Buspirone 15 mg TID. May continue Zolpidem 10 mg. Continue Gabapentin 800 mg TID per PCP. F/U with me in 2 months. He agrees with the plan. Assessment & Plan (01/31/2023 9:30 AM EDT): Assessment: ?? Patient has been experiencing worsening daily symptoms: little interest/pleasure in doing things, feeling down/depressed/hopeless, unable to stay asleep (obtaining about 2.5 hours), feeling tired with little energy, poor appetite, mood swings, trouble concentrating, and occasionally feeling bad about himself. He denies SI/HI. Patient also reports feeling nervous/anxious/on edge, not being able to stop worrying and worrying about many things, trouble relaxing, restlessness, irritability, and afraid something awful might happen. Rudy also experiences visual (shadows) and auditory(whispers) hallucinations. Presentation the context of bipolar depressive episode, feeling useless due to inability to use right arm, and lack of own housing. Rudy was provided option of OP therapy referral. He stated he had a negative experiencing with therapy in [place] but is willing to try once more. Rudy is already connected to psychopharmacology services at [facility] with Daniel Ricketts. ?? At this time Rudy Hardwick meets criteria for Visit Diagnoses: Problem List Items Addressed This Visit ? Other ?? Chronic bipolar disorder ([facility]) ?? Patient ready to address current needs Yes ?? Strengths include ability to advocate for himself ?? PLAN: 1. Follow up with [facility] [place]: Not recommended for follow-up 2. Patient goal is to improve current mental state 3. Behavioral Recommendations a. Clinician will connect with Daniel Ricketts b. Patient will engage in OP therapy, once established c. Patient will comply with medication d. Patient may request to speak with a [facility] during next visit, if needed Assessment & Plan (01/14/2023 9:59 AM EDT): With psychotic features: Auditory and visual hallucinations. Mood swings. Poor sleep. Chronic anxiety, consider DEYVI as secondary diagnosis. Also consider Schizoaffective disorder although functional status is reasonably good. Chronic pain with opioid pain medication (Tramadol). No ANTONETTE. Denies trauma history. Strong fam hx of BPD, psychosis. Hx hospitalization for SI in 2010, not since. Does have protective factors of family support (lives in apartment in son's home). Did not tolerate starting dose of Quetiapine 25 mg at bedtime with am dizziness. Now doing much better with Risperidone 0.5 mg at bedtime, and prefers to continue at this low dose for now. Will also continue Buspirone 15 mg TID. May continue Zolpidem 10 mg. Continue Gabapentin 800 mg TID per PCP. Not interested in counseling. F/U with me in 2 months. He agrees with the plan. Assessment & Plan (12/06/2022 10:18 AM EDT): With psychotic features: Auditory and visual hallucinations. Mood swings. Poor sleep. Chronic anxiety, consider DEYVI as secondary diagnosis. Also consider Schizoaffective disorder although functional status is reasonably good. Chronic pain with opioid pain medication (Tramadol). No ANTONETTE. Denies trauma history. Strong fam hx of BPD, psychosis. Hx hospitalization for SI in 2010, not since. Does have protective factors of family support (lives in apartment in son's home). Did not tolerate starting dose of Quetiapine 25 mg at bedtime with am dizziness. Will stop that now and instead start Risperidone 0.5 mg at bedtime. . Increase again to Buspirone 15 mg and do take TID. May continue Zolpidem 10 mg for now, although not especially effective. Continue Gabapentin 800 mg TID per PCP. Still not interested in counseling. F/U with me in 1 month. He agrees with the plan. Assessment & Plan (11/15/2022 11:21 AM EDT): With psychotic features: Auditory and visual hallucinations. Mood swings. Poor sleep. Chronic anxiety, consider DEYVI as secondary diagnosis. Also consider Schizoaffective disorder although functional status is reasonably good. Chronic pain with opioid pain medication (Tramadol). No ANTONETTE. Denies trauma history. Strong fam hx of BPD, psychosis. Hx hospitalization for SI in 2010, not since. Does have protective factors of family support (lives in apartment in son's home). Previously took Quetiapine 400 mg during hospitalization and hated the effect, but is willing to try again at lower dose. Will start Quetiapine 25 mg at bedtime. Increase to Buspirone 10 mg TID. May continue Zolpidem 10 mg for now, although not especially effective. Stop Duloxetine 30 mg as likely destabilizing his mood. Continue Gabapentin 800 mg TID. Reviewed that Alprazolam would not be appropriate in context of opioid pain medication. Suggested he consider counseling, will revisit at next appt. F/U with me in 3 weeks. He agrees with the plan. Hyperlipidemia 10/04/2022 Benign prostatic hyperplasia 10/04/2022 Chronic gastroesophageal reflux disease 10/05/19 History of basal cell carcinoma 10/04/2022 Resolved Problems Problem Noted Date Diagnosed Date Resolved Date Incisional hernia of anterio r abdominal wall without obstruction or gangrene 01/30/2023 01/31/20 23 Encounters Date Type Department Care Team Description 12/23/2024 9:30 AM EDT Office Visit [facility] [address] [place] [phone] Vane Diallo DO Chronic bipolar disorder (CMS/HCC) (Primary Dx); Other hyperlipidemia; Chronic gastroesophageal reflux disease; Pulmonary nodule; Benign prostatic hyperplasia, unspecified whether lower urinary tract symptoms present; Elevated PSA; Chronic neck and back pain; Chronic pain of left knee; ROLY (obstructive sleep apnea); History of basal cell carcinoma; Hx of colonic polyps; Healthcare maintenance; BMI 26.0-26.9,adult; Chronic neck pain 12/23/2024 Travel 12/17/2024 Telephone [facility] [address] [place] [phone] Vane Diallo DO Chart Prep 12/15/2024 Patient Outreach [address] [phone] Vane Diallo DO Pre-visit Planning ((Unable to reach for PVP screening and or LVM)) 11/27/[address] [phone] [place]csak, Vane, DO Benign prostatic hyperplasia, unspecified whether lower urinary tract symptoms present 10/18/2024 Refill [facility] [address] [place], [place] [phone] Vane Diallo, DO Chronic left-sided low back pain with left-sided sciatica 09/30/2024 Travel 09/28/2024 Telephone [facility] [address] [place], [place] [phone] Vane Diallo, DO Appointment Request; Pt does not want Tramadol anymore from Last 3 Months Immunizations Immunization Administration Dates Next Due Influenza injectable quadrivalent preservative f ree 10/31/2022 Pneumococcal Conjugate PCV 20 10/31/2022 Zoster, Recombinant 04/07/2024 Family History Medical History Relation Name Comments Diabetes Father Hypertension Father Brain cancer Father's Brother 1 Colon cancer Father's Brother 2 Colon cancer Maternal Grandfather Stomach cancer Maternal Grandfather Alzheimer's disease Mother Coronary artery disease Mother Skin cancer Mother Colon cancer Sister Relation Name Status Comments Father Alive Father's Brother 1 Father's Brother 2 Maternal Grandfather Mother Alive Sister Social History Tobacco Use Types Packs/Day Years Used Date Smoking Tobacco: Every Day Cigarettes Smokeless Tobacco: Never Tobacco Cessation:Ready to Q uit: Not Asked; Counseling Given: Not Answered Alcohol Use Standard Drinks/Week Comments Never 0 (1 standard drink = 0.6 oz pur e alcohol) Depression Answer Date Recorded Patient Health Questionnaire-9 Score 11 12/23/2024 Patient Health Questionnaire-9 Score 11 12/23/2024 Last PHQ-9: Questionnaire Data Not on file 0 12/23/2024 Housing Stability Answer Date Recorded What is your housing situation today? I have svetlana garcia 12/23/[address] you [...] the past 12 months, has t he electric, gas, oil or water company threatened to shut off services in your [...] Don't know 10/04/2022 9: 54 AM EST Last Filed Vital Signs Vital Sign Reading [...] Mass Index 25.39 12/23/2024 9:19 AM EDT Plan of Treatment Health Maintenance Due Date Last Done Comments CT Colonography 1968 Colonoscopy 1968 Colorectal Cancer Screening 1968 FIT DNA/Cologuard 1968 FIT 1968 FOBT 1968 Sigmoidoscopy 1968 DTaP/Tdap/Td Vaccines (1 - Tdap) 1987 Hepatitis B Vaccines (1 of 3 - 19+ 3-dose series) 1987 COVID-19 Vaccine ( - 2023-2 5 season) 2024 Influenza Vaccine (#1) 2024 10/31/2022 Zoster Vaccines (2 of 2) 06/02/2024 04/07/2024 Diabetes: Hemoglobin A1C 02/11/2025 024, 10/30/2023 Alcohol/Substance Use Screening 12/23/2025 12/23/2024 Depression Screening 12/23/2025 12/23/2024, 12/23/2024 Disability Screening 12/23/2025 12/23/2024 SDOH Screening 12/23/2025 12/23/2024 Tobacco Screening 12/23/2025 12/23/2024 Lipid Panel 02/11/2029 02/12/2024, 10/30/2023, 10/08/2022 RSV Patients and Patients Aged 60 years or older (1 - 1-dose 75+ series) 2043 Hepatitis C Screening Completed 10/08/2022 Pneumococcal Vaccine: 50+ Years Completed 10/31/2022 HIV Screening Completed 10/30/2023 HIB Vaccines Aged Out No longer eligi ble based on patient's age to complete this topic HPV Vaccines Aged Out No longer eligi ble based on patient's age to complete this topic Hepatitis A Vaccines Aged Out No long er eligible based on patient's age to complete this topic IPV Vaccines Aged Out No longer eligi ble based on patient's age to complete this topic Meningococcal B Vaccine Aged Out No l onger eligible based on patient's age to complete this topic Meningococcal Vaccine Aged Out No aleta tutu eligible based on patient's age to complete this topic RSV under 20 months Aged Out No longe r eligible based on patient's age to complete this topic Rotavirus Vaccines Aged Out No longer eligible based on patient's age to complete this topic Procedures Procedure Name Priority Date/Time Associated Diagnosis [...] colonic polyps BMI 26.0-26.9,adult Chronic neck pain HEMOGLOBIN A1C Routine 02/12/2024 11:07 AM EDT Fatigue, unspecified type LIPID PANEL, STANDARD Routine 02/12/2024 11:07 AM EDT Fatigue, unspecified type HIV 1/2 ANTIGEN/ANTIBODY, FOURTH GENERATION W/RFL Routine 10/30/2023 11:11 AM EDT Acute pain of left knee HEPATITIS C AB W/RFL RNA, PCR W/RFL GENOTYPE,LIPA Routine 10/08/2022 9:47 AM EST Other hyperlipidemia from Last 3 Months or Most Recently Relevant to Health Maintenance Results * CBC auto differential (12/23/2024 10:12 AM EDT) White Blood Count 8.0 4.8 - 10.8 X10*3/uL [facility] Red Blood Count 4.91 4.60 - 5.80 X10*6/uL [facility] Hemoglobin 16.1 14.0 - 18.0 g/dl [facility] Hematocrit 46.6 42.0 - 52.0 % [facility] Mean Corpuscular Volume 94.9 80.0 - 98.0 fL [facility] Mean Corpuscular Hemoglobin 32.8 27.0 - 33.0 pg [facility] Mean Corpuscular HGB Conc 34.5 31.0 - 36.0 g/dl [facility] Red Cell Distribution Width 12.8 11.0 - 16.0 % [facility] Platelet Count 265 160 - 400 X10*3/uL [facility] Mean Platelet Volume 9.4 9.4 - 12.4 fL [facility] Neutrophils Percent Auto 55.9 45 - 73 % [facility] Imm Gran Pct Auto 0.3 0.0 - 0.4 % [facility] Lymphocytes Percent Auto 36.8 20 - 40 % [facility] Monocytes Percent Auto 5.5 2 - 11 % [facility] Eosinophils Percent Auto 1.1 0 - 4 % [facility] Basophils Percent Auto 0.4 0 - 2 % [facility] NRBC Pct Auto 0.0 0.0 - 0.2 /100WBC [facility] Neutrophils Absolute Auto 4.5 2.0 - 8.3 x10*3/uL [facility] Imm Gran Abs Auto 0.02 0.00 - 0.03 X10*3/uL [facility] Lymphocytes Absolute Auto 2.9 1.2 - 4.9 X10*3/uL [facility] Monocytes Absolute Auto 0.4 0.1 - 1.2 X10*3/uL [facility] Eosinophils Absolute Auto 0.1 0.0 - 0.4 X10*3/uL [facility] Basophils Absolute Auto 0.0 0.0 - 0.2 X10*3/uL [facility] NRBC Abs Auto 0.000 0.0 - 0.012 X10*3/uL [facility] Blood Venous blood specimen / Unknown 12/23/2024 10:12 AM EDT 12/23/2024 11:04 AM EDT us Vane Diallo DO LAB BLOOD ORDERABLES Final R esult [facility] [address] [place] [phone] * Hemoglobin A1c (02/12/2024 11:07 AM EDT) Hemoglobin A1c 5.7 <6.0 % [facility] Comment:Hemoglobin A1C Refer ence Range Adults: 4.8 - 6.0 % Non diabetic: < 6.0 % Goal: < 7.0 %Additional Action Suggested: > 8.0 %Note: Hemoglobin A1c results are invalid for patients with abnormal amounts of HbF. Blood transfusions may impact the HbA1c concentration in the patient sample. Estimated Average Glucose 117 mg/dL [facility] Comment:eAG = Estimated ave rage glucose which is %A1C expressed asaverage glucose, using the formula of the [id number] Glucose study (ADAG), Diabetes Care, Vol.31,#8,Mar. 2007 Blood Venous blood specimen / Unknown 02/12/2024 11:07 AM EDT 02/12/2024 12:56 PM EDT us Vane Jacomevanessa DO LAB BLOOD ORDERABLES Final R esult Performing Organization Address City/[facility]/ZIP Co de Phone Number [facility] [address] [place] [phone] * Lipid Panel, Standard (02/12/2024 11:07 AM EDT) Triglycerides 93 <150 mg/dL [facility] Comment:Desirable Triglyceri de: less than 150 mg/dLBorderline High Triglyceride 150-199 mg/dLHigh Triglyceride: 200-499 mg/dLVery High Triglyceride: greater than or equal to 5OO mg/dL Cholesterol 158 <200 mg/dL [facility] Comment:Desirable Cholestero l: less than 200 mg/dLBorderline High Cholesterol: 200-239 mg/dLHigh Cholesterol: greater than 239 mg/dL LDL Cholesterol Calculated 89 <100 mg/dL [facility] Comment:Desirable LDL: less than 100 mg/dLNear Optimal/Above Optimal LDL: 110- 129 mg/dLBorderline High LDL: 130-159 mg/dLHigh LDL: 160-189 mg/dLVery High LDL: greater than or equal to 190 mg/dL HDL Cholesterol 51 >40 mg/dL [facility] Comment:Desirable HDL: great er than 40 mg/dL Note: This HDL assay may give artificially low results in patients with liver disease. Blood Venous blood specimen / Unknown 02/12/2024 11:07 AM EDT 02/12/2024 12:54 PM EDT Vane Yoel DO LAB BLOOD ORDERABLES Final R esult [facility] [address] [place] [phone] * HIV-1/2 Antigen and Antibodies, Fourth Generation, with Reflexes (10/30/2023 11:11 AM EDT) HIV AB/AG Nonreactive Nonreactive [facility] Comment:HIV-1 p24 Ag and/or HIV-1/HIV-2 Ab not detected.A test result that is nonreactive does not exclude thepossibility of exposure to or infection with HIV-1 and/orHIV-2. Nonreactive results in this assay for individualswith prior exposure to HIV-1 and/or HIV-2 may be due toantigen and antibody levels that are below the limit ofdetection of this assay.[employer] HIV Ag/Ab Combo assay result andsupplemental assay results should be interpreted inconjunction with the patient's clinical presentation,history and other laboratory results. If the results areinconsistent with clinical evidence, additional testing issuggested to confirm the result. Blood Venous blood specimen / Unknown 10/30/2023 11:11 AM EDT 10/30/2023 1:24 PM EDT Vane Diallo DO LAB BLOOD ORDERABLES Final R [employer] Performing Organization Address [facility]/State/ZIP Co de Phone Number [facility] [address] [place] [phone] * Hepatitis C Antibody with Reflex to HCV RNA,PCR w/Reflex to Genotype, LiPA (10/08/2022 9:47 AM EST) Hepatitis C Antibody NON-REACT ABA NON-REACT ABA [facility] Index 0.05 <1.00 [facility] Comment: HCV antibody was non-reactive. There is no laboratory evidence of HCV infection. In most cases, no further action is required. However, if recent HCV exposure is suspected, a test for HCV RNA (test code 39783) is suggested. For additional information, please refer to http://education.Cloudability/faq/YWE720 (This link is being provided for informational/ educational purposes only.) 10/08/2022 9:47 AM EST 10/08/2022 9:48 AM EST Narrative [facility] - 10/09/2022 11:17 AM EST FASTING:NO FASTING: NO Vane Diallo DO LAB BLOOD ORDERABLES Final R esult [facility] [address] [facility], 3[address], [place] [address] [facility] [address] [facility], ([address]) [place] [address] from Last 3 Months or Most Recently Relevant to Health Maintenance Insurance [facility] < [address] [facility] Care Teams [employer] Make Up Helper Relationship Specialty Start Date End Date Vane Diallo DO [address] [place] [address] PCP - General Family Medicine 10/04/22
--- OUTSIDE RECORDS SUMMARY | 2024-12-23 11:41 | XMS_ITS | Encounter Summary ---
Author Organization [employer] Address [address] [place] [address] 7 [place] [address] Care Team Providers Care Stripper Printed Circuit Boards Name Role Phone Vane Diallo DO Primary Care Provider +1 [phone] Reason for Visit * Reason Onset Date Comments Prior Authorization 10/08/2022 Encounter Details Date Type Department Care Team (Late st Contact Info) Description 10/08/2022 Telephone [facility] [address] [place] [address] Vane Diallo DO 230 [place] [address] Prior Authorization Social History Tobacco Use Types Packs/Day Years Used Date Smoking Tobacco: Every Day Cigarettes Smokeless Tobacco: Never Sex and Gender Information Value Date Recorded Sex Assigned at Male 10/04/2022 9:54 AM EST Legal Sex Male 9:52 AM EST Gender Identity Male 10/04/2022 9:54 AM EST Sexual Orientation Don't know 10/04/2022 9: 54 AM EST COVID-19 Exposure Response Date Recorded In the last 10 days, have yo u been in contact with someone who was confirmed or suspected to have Coronavirus/COVID-19? No / Unsure 10/04/2022 10:00 AM EST documented as of this encounter Miscellaneous Notes * Telephone Encounter - Mitra Gonzalez - 10/08/2022 2:13 PM EST Tc from Pt calling to inform a PA is needed for medications busPIRone (Buspar) 5 MG tablet and traMADol (Ultram) 50 MG tablet. documented in this encounter Plan of Treatment Not on file documented as of this encounter Visit Diagnoses Not on filedocumented in this encounter Care Teams Stripper Printed Circuit Boards Relationship Specialty Start Date End Date Vane Diallo DO [address] [place] [address] PCP - General Family Medicine 10/04/22 documented as of this encounter
--- OUTSIDE RECORDS SUMMARY | 2024-12-23 11:41 | XMS_ITS | Encounter Summary ---
Author Organization [employer] Address [address] [facility] 7t [place] [address] Care Team Providers Care Formula Maker Name Role Phone Vane Diallo DO Primary Care Provider [phone]- [phone] Reason for Visit * Reason Onset Date Comments Referral 12/16/2023 Encounter Details Date Type Department Care Team ([facility] st Contact Info) Description 12/16/2023 Telephone [facility] MED[facility] 230 [place] [address] Vane Diallo DO 230 [place] [address] Referral Social History Tobacco Use Types Packs/Day Years Used Date Smoking Tobacco: Every Day Cigarettes Smokeless Tobacco: Never Alcohol Use Standard Drinks/Week Comments Never 0 (1 standard drink = 0.6 oz pur e alcohol) Depression Answer Date Recorded Patient Health Questionnaire-9 Score 7 12/09/2023 Patient Health Questionnaire-9 Score 7 12/09/2023 Last PHQ-9: Questionnaire Data Not on file 0 12/09/2023 Housing Stability Answer Date Recorded What is your housing situation today? I have svetlana garcia 05/20/[address] you li ve. Do you have problems with any of the following? None of the above 05/20/2023 Food Insecurity Answer Date Recorded Within the past 12 months, y ou worried that your food would run out before you got money to buy more: Never True 10/22/2023 Within the past 12 months,th e food you bought just didn't last and you didn't have enough money to get more: Never True Transportation Answer Date Recorded In the past 12 months, has l ack of transportation kept you from medical appts, meetings, work or from getting things needed for daily living? No 05/20/2023 Utilities Answer Date Recorded In the past 12 months, has t he electric, gas, oil or water company threatened to shut off services in your home? No 05/20/2023 Depression Answer Date Recorded Patient Health Questionnaire-2 Score 1 12/09/2023 Sex and Gender Information Value Date Recorded Sex Assigned at Male 10/04/2022 9:54 AM EST Legal Sex Male 9:52 AM EST Gender Identity Male 10/04/2022 9:54 AM EST Sexual Orientation Don't know 10/04/2022 9: 54 AM EST documented as of this encounter Miscellaneous Notes * Telephone Encounter - Aletha Suarez RN - 12/16/2023 10:37 AM EDT Telephone call returned to patient in regards to below message. Patient stating he mentioned both issues at last appointment. Patient would like referral for sleep apnea. Patient would like referral/appointment fr knee injections for pain. Patient verbalized understanding and denied having any further questions or concerns at this time. * Telephone Encounter - Mitra Gonzalez - 12/16/2023 10:21 AM EDT Tc from pt requesting status on a referral pcp was going to requesting to sleep apnea study and knee injections . Please call pt to clarify. documented in this encounter Plan of Treatment Not on file documented as of this encounter Visit Diagnoses Not on filedocumented in this encounter Additional Health Concerns Assessment Noted Time PHQ-9 Depression Total Score: 7 12/09/19 24 9:41 AM EDT documented as of this encounter Care Teams Formula Maker Relationship Specialty Start Date End Date Vane Diallo DO 230 [place] [address] PCP - General Family Medicine 10/04/22 documented as of this encounter
--- OUTSIDE RECORDS SUMMARY | 2024-12-23 11:41 | XMS_ITS | Patient Health Record ---
Author Organization [employer] Address [address] [facility] [address] [place] [address] Care Team Providers Care Innovations Paraprofessional Name Role Phone Lakeisha Interiano Unavailable [phone] Allergies No Known Allergies Reason For Referral No Information Medications Medication SIG (Take, Route, Frequency, Duration) Notes Start Date End Date Status busPIRone HCl 5 MG 1 TABLET ORALLY ONCE A DAY 90 DAYS for 90 Active Finasteride 5 MG TAKE ONE TABLET EVER Y DAY for 90 Active Pantoprazole Sodium 40 MG TAKE ONE TABLE T EVERY DAY for 90 Active Ambien 10 MG 1 tablet at bedtime as needed Orally Once a day Active Meloxicam 15 MG 1 tablet Orally Once a day for 90 days Active Voltaren 1 % apply 1 gram Transdermal BID Active Tolak 4 % 1 application Externally 4 times a day Active Gabapentin 800 MG 1 tablet Orally ever y 6 h for 90 days Active Tamsulosin HCl 0.4 MG TAKE ONE CAPSULE E DAY for 90 Active Xanax 1 MG 1 tablet Orally once a day Active DULoxetine HCl 60 MG 1 CAPSULE ORALLY ON A 90 DAYS for 90 Active traMADol HCl 50 MG TAKE ONE TABLET BY MOUTH EVERY 12 HOURS 07/25/2021 Active Belsomra 10 MG 1 tablet at bedtime as needed Orally Once a day Not-Taking Ezetimibe 10 MG 1 TABLET ORALLY ONCE A DAY 90 DAYS for 90 Active Atorvastatin Calcium 40 MG TAKE ONE TABLET EVERY DAY for 90 Active Social History Tobacco Use: Social History Observation Description Date Details (start date - stop date) Current Smoker NA - NA Tobacco Use/Smoking Question Answer Notes Are you a current smoker How often do you smoke cigarettes? every day How many cigarettes a day do you smoke? 11-20 Alcohol Screen (Audit-C) Question Answer Notes Did you have a drink containing alcohol in the p ast year? No Points 0 Interpretation Negative Tobacco use other than smoking: Question Answer Notes Are you an other tobacco user? No Problems Problem Type SNOMED Code ICD Code Onset Dates Problem Status W/U Status Risk Notes Problem 51845650 Opioid dependenc e, uncomplicated (F11.20) Active confirmed Taking Tramadol 50mg more than six months ( since 12/23/2019) . 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) Active confirmed Taking Xanax 1mg more than six months ( since 02/26/2020) Problem History of malignant neoplasm of skin (situation) (697529035) History of skin cancer in adulthood (Z85.828) Active confirmed Problem Hyperlipidemia (38683855) Hyperlipidemia (E78.5) Active confirmed Patient on statin treatment Problem 56940401 Simple chronic bronchitis (J41.0) Active confirmed Problem 40128079 Moderate smoker (20 or less per day) (F17.200) Active confirmed Plan Of Treatment Future Test Test Name Order Date FOBT {Occult Blood, Fecal} IA (ColoFIT) 03/13/2021 Lipid Panel 03/16/2021 CBC With Differential/Platelet 2 Urinalysis, Complete 09/04/2021 TSH 09/04/2021 Lipid Panel 09/04/2021 CMP {Comprehensive Metabolic Panel} (14) 09/04/2021 Insurance Providers Payer Name Payer Address Payer Phone Subscriber Number Group Number Insured Name Patient Relationship to Insured Coverage Start Date Coverage End Date [facility] [address] [address] [place] [address] [id number] Rudy Worley Self - patient is the insured 1 Medical (General) History Medical History History ICD Code skin cancer acid reflux cervical spondylosis anxiety depression hyperlipidemia
--- OUTSIDE RECORDS SUMMARY | 2024-12-23 11:41 | XMS_ITS | Encounter Summary ---
Author Organization [employer] Address [address] [place] [address] [address] [place] [address] Care Team Providers Care Crab Fisherman Name Role Phone Vane Diallo DO Primary Care Provider [phone]- [phone] Reason for Visit * Reason Onset Date Comments Call Back 11/12/2022 Encounter Details Date Type Department Care Team ([facility] st Contact Info) Description 11/12/2022 Telephone [facility] MEDICINE 230 [place] [address] Vane Diallo DO 230 [place] [address] Call Back Social History Tobacco Use Types Packs/Day Years [...] suspected to have Coronavirus/COVID-19? No / Unsure 10/31/2022 11:08 AM EDT documented as of this encounter Functional Status * Over the past 2 weeks, how often have you been bothered by any of the following problems? Question Answer Date of Assessment Author Patient Health Questionnaire -2 Score 2 11/15/2022 9:54 AM EDT Bianca Marie MA * If you checked off any problems on this questionnaire so far, Question Answer Date of Assessment Author How difficult have these problems made it for you to do your work, take care of things at home, or get along with other people? Very difficult 11/15/2022 9:54 AM ALBAROT Bianca Marie MA * Over the last 2 weeks, how often have you been bothered by any of the following problems? Question Answer Date of Assessment Author Feeling nervous, anxious, or on edge 3 11/15/2022 9:57 AM EDT Bianca Marie MA Not being able to stop or control worrying 2 11/15/2022 9:57 AM ALBAROT Bianca Marie MA Worrying too much about different things 2 11/15/2022 9:57 AM ALBAROT Bianca Marie MA Trouble relaxing 2 11/15/2022 9:57 AM EDT Samantha Zavala MA Being so restless that it is hard to sit still 3 11/15/2022 9:57 AM ALBAROT Bianca Marie MA Becoming easily annoyed or irritable 2 11/15/2022 9:57 AM EDT Bianca Marie MA Feeling afraid as if somethi ng awful might happen 2 11/15/2022 9:57 AM Bianca Hwang MA DEYVI-7 Total Score 16 11/15/2022 9:57 AM Samantha Hwang MA * Over the past 2 weeks, how often have you been bothered by any of the following problems? Question Answer Date of Assessment Author Little interest or pleasure in doing things Several days 11/15/2022 9:54 AM Samantha Hwang MA Feeling down, depressed, or hopeless Several days 11/15/2022 9:54 AM ALBAROT Samantha Marie MA Trouble falling or staying asleep, or sleeping too much Nearly every day 11/15/2022 9:54 AM Samantha Hwang MA Feeling tired or having little energy Several days 11/15/2022 9:54 AM Samantha Hwang MA Poor appetite or overeating Several days 11/15/2022 9:54 AM EDT Samantha Marie MA Feeling bad about yourself - or that you are a failure or have let yourself or your family down Several days 11/15/2022 9:54 AM EDT Samantha Marie MA Trouble concentrating on things, such as reading the newspaper or watching television More than half the days 11/15/2022 9:54 AM EDT Samantha Marie MA Moving or speaking so slowly that other people could have noticed? Or the opposite - being so fidgety or restless that you have been moving around a lot more than usual. Several days 11/15/2022 9:54 AM EDT Samantha Marie MA Thoughts that you would be better off or hurting yourself in some way Not at all 11/15/2022 9:54 AM EDT Samantha Marie MA Patient Health Questionnaire-9 Score 11 11/15/2022 9:54 AM EDT Samantha Marie MA documented as of this encounter Miscellaneous Notes * Telephone Encounter - Angela Gilmore - 11/12/2022 9:57 AM EDT TC to patient and informed him script for recliner will be sent to his manager primary care for processing. * Telephone Encounter - Sandhya Domingo - 11/12/2022 9:21 AM EDT Tc from pt requesting a status on recliner chair that PCP was going to provide for pt on last visit10/31/2022. Please contact pt at [phone] Thai speaker documented in this encounter Plan of Treatment Not on file documented as of this encounter Visit Diagnoses Not on filedocumented in this encounter Care Teams Crab Fisherman Relationship Specialty Start Date End Date Vane Diallo DO [address] [place] [address] PCP - General Family Medicine 10/04/22 documented as of this encounter
--- OUTSIDE RECORDS SUMMARY | 2024-12-23 11:41 | XMS_ITS | Encounter Summary ---
Author Organization [employer] Address [address] [facility] 7t [place] [address] Care Team Providers Care Bag Machine Set Up Operator Name Role Phone RahelVane novoa Primary Care Provider [phone]- [phone] Reason for Visit * Reason Comments Med Refill Encounter Details Date Type Department Care Team ([facility] st Contact Info) Description 06/06/2023 Refill [facility] MEDICINE 230 [place] [address] Maggie Sykes MD 230 [place] [address] History of basal cell carcinoma Social History Tobacco Use Types Packs/Day Years Used Date Smoking Tobacco: Every Day Cigarettes Smokeless Tobacco: Never Alcohol Use Standard Drinks/Week Comments Never 0 (1 standard drink = 0.6 oz pur e alcohol) Depression Answer Date Recorded Patient Health Questionnaire-9 Score 4 06/04/2023 Patient Health Questionnaire-9 Score 4 06/04/2023 Last PHQ-9: Questionnaire Data Not on file 1 Housing Stability Answer Date Recorded What is your housing situation today? I have svetlana garcia 05/20/[address] you li ve. Do you have problems with any of the following? None of the above 05/20/2023 Food Insecurity Answer Date Recorded Within the past 12 months, y ou worried that your food would run out before you got money to buy more: Sometimes True 2022 Within the past 12 months,th e food you bought just didn't last and you didn't have enough money to get more: Never True 05/20/2023 Transportation Answer Date Recorded In the past [...] Date Recorded Patient Health Questionnaire-2 Score 1 06/04/2023 Sex and Gender Information Value Date Recorded Sex Assigned at Male 10/04/2022 9:54 AM EST Legal Sex Male 9:52 AM EST Gender Identity Male 10/04/2022 9:54 AM EST Sexual Orientation Don't know 10/04/2022 9: 54 AM EST documented as of this encounter Plan of Treatment Not on file documented as of this encounter Visit Diagnoses Diagnosis History of basal cell carcinoma Personal history of other malignant neoplasm of skin documented in this encounter Additional Health Concerns Assessment Noted Time PHQ-9 Depression Total Score: 4 06/04/20 10:09 AM EDT documented as of this encounter Care Teams Bag Machine Set Up Operator Relationship Specialty Start Date End Date Vane Diallo DO [address] [place] [address] PCP - General Family Medicine 10/04/22 documented as of this encounter
--- OUTSIDE RECORDS SUMMARY | 2024-12-23 11:41 | XMS_ITS | Encounter Summary ---
Author Organization [employer] Address [address] [facility] 7t [place] [address] Care Team Providers Care Service Delivery Consultant Name Role Phone Vane Diallo DO Primary Care Provider [phone]- [phone] Reason for Visit * Reason Onset Date Comments Appointment Request 09/06/2023 Encounter Details Date Type Department Care Team ([facility] st Contact Info) Description 09/06/2023 Telephone [facility] MEDICINE 230 [place], [place] [phone] Vane Diallo DO 230 [place], [place] [phone] Appointment Request Social History Tobacco Use Types Packs/Day Years Used Date Smoking Tobacco: Every Day Cigarettes Smokeless Tobacco: Never Alcohol Use Standard Drinks/Week Comments Never 0 (1 standard drink = 0.6 oz pur e alcohol) Depression Answer Date Recorded Patient Health Questionnaire-9 Score 6 08/08/2023 Patient Health Questionnaire-9 Score 6 08/08/2023 Last PHQ-9: Questionnaire Data Not on file 0 08/08/2023 Housing Stability Answer Date Recorded What is [...] Date Recorded Patient Health Questionnaire-2 Score 1 08/08/2023 Sex and Gender Information Value Date Recorded Sex Assigned at Male 10/04/2022 9:54 AM EST Legal Sex Male 9:52 AM EST Gender Identity Male 10/04/2022 9:54 AM EST Sexual Orientation Don't know 10/04/2022 9: 54 AM EST documented as of this encounter Miscellaneous Notes * Telephone Encounter - Alison Matt - 09/06/2023 12:59 PM EST Tc from pt requesting f/u appt, pt stated can be seen by another provider he stated he need a f/u on his conditions. Pt is requesting a provider who speak new zealander. documented in this encounter Plan of Treatment Not on file documented as of this encounter Visit Diagnoses Not on filedocumented in this encounter Additional Health Concerns Assessment Noted Time PHQ-9 Depression Total Score: 6 08/08/19 24 9:45 AM EST documented as of this encounter Care Teams Service Delivery Consultant Relationship Specialty Start Date End Date Vane Diallo DO 230 [place] [address] PCP - General Family Medicine 10/04/22 documented as of this encounter
--- OUTSIDE RECORDS SUMMARY | 2024-12-23 11:42 | XMS_ITS | Encounter Summary ---
Author Organization [employer] Address [address] [facility] 7t [place] [address] Care Team Providers Care Underground Bolting Machine Operator Name Role Phone Vane Diallo DO Primary Care Provider [phone]- [phone] Reason for Visit * Reason Comments Med Change Request Encounter Details Date Type Department Care Team ([facility] st Contact Info) Description 10/08/2022 Refill [facility] 230 [place] [address] Vane Diallo DO 230 [place] [address] History of basal cell carcinoma Social History [...] encounter Miscellaneous Notes * Telephone Encounter - Vane Diallo DO - 11/01/2022 4:51 PM EDT Rx sent to [facility] pharmacy and 5% cream covered with HSN. documented in this encounter Plan of Treatment Not on file documented as of this encounter Visit Diagnoses Diagnosis History of basal cell carcinoma Personal history of other malignant neoplasm of skin documented in this encounter Care Teams Underground Bolting Machine Operator Relationship Specialty Start Date End Date Vane Diallo DO [address] [place] [phone] PCP - General Family Medicine 10/04/22 documented as of this encounter
--- OUTSIDE RECORDS SUMMARY | 2024-12-23 11:42 | XMS_ITS | Encounter Summary ---
Author Organization [employer] Address [address] [facility] 7t [place] [address] Care Team Providers Care Bread Molder Name Role Phone Vane Diallo DO Primary Care Provider +1- [phone] Reason for Visit * Reason Comments Med Refill Encounter Details Date Type Department Care Team ([facility] st Contact Info) Description 01/04/2024 Refill [facility] MEDICINE 230 [place] [address] Vane Diallo DO 230 [place], [place] [phone] History of basal cell carcinoma Social History [...] documented as of this encounter Care Teams Bread Molder Relationship Specialty Start Date End Date Vane Diallo DO [address] [place] [address] PCP - General Family Medicine 10/04/22 documented as of this encounter
--- OUTSIDE RECORDS SUMMARY | 2024-12-23 11:42 | XMS_ITS | Encounter Summary ---
Author Organization [employer] Address [address] [facility] [address] [place] [address] Care Team Providers Care Salvage Determiner Name Role Phone Vane Diallo Primary Care Provider [phone] Encounter Details Date Type Department Care Team (Latest Contact Info) Description 12/23/2024 Travel Social History Tobacco Use Types Packs/Day Years [...] AM EST Sexual Orientation Don't know 10/04/2022 9 :54 AM EST documented as of this encounter Functional Status * Over the past 2 weeks, how often have you been bothered by any of the following problems? Question Answer Date of Assessment Author Patient Health Questionnaire -2 Score 2 12/23/2024 10:00 AM Beth Russell MA * Little interest or pleasure in doing things Answer Date of Assessment Author Several days 12/23/2024 10:00 AM Beth Russell MA * Feeling down, depressed, or hopeless Answer Date of Assessment Author Several days 12/23/2024 10:00 AM Beth Russell MA * Trouble falling or staying asleep, or sleeping too much Answer Date of Assessment Author More than half the days 12/23/2024 10:00 AM Beth Russell MA * Feeling tired or having little energy Answer Date of Assessment Author More than half the days 12/23/2024 10:00 AM Beth Russell MA * Poor appetite or overeating Answer Date of Assessment Author Several days 12/23/2024 10:00 AM Beth Russell MA * Feeling bad about yourself - or that you are a failure or have let yourself or your family down Answer Date of Assessment Author Several days 12/23/2024 10:00 AM Beth Russell MA * Trouble concentrating on things, such [...] of Assessment Author 11 12/23/2024 10:00 AM ALBAROT Beth Suarez MA * How difficult have these problems made it for you to do your work, take care of things at home, or get along with other people? Answer Date of Assessment Author Somewhat difficult 12/23/2024 10:00 AM EDT Beth Reyes MA * Over the last 2 weeks, how often have you been bothered by any of the following problems? Question Answer Date of Assessment Author Feeling nervous, anxious, or on edge 3 12/23/2024 10:00 AM EDT Beth Suarez MA Not being able to stop or co ntrol worrying 2 12/23/2024 10:00 AM EDT Beth Suarez MA Worrying too much about diff erent things 2 12/23/2024 10:00 AM EDT Beth Suarez MA Trouble relaxing 2 12/23/2024 10:00 AM EDT Beth Suarez MA Being so restless that it is hard to sit still 2 12/23/2024 10:00 AM ALBAROT Beth Suarez MA Becoming easily annoyed or irritable 2 12/23/2024 10:00 AM EDT Beth Suarez MA Feeling afraid as if somethi ng awful might happen 2 12/23/2024 10:00 AM EDT Beth Suarez MA DEYVI-7 Total Score 15 12/23/2024 10:00 AM ALBAROT Beth Suarez MA documented as of this encounter Plan of Treatment Not on file documented as of this encounter Visit Diagnoses Not on filedocumented in this encounter Additional Health Concerns Assessment Noted Time PHQ-9 Depression Total Score: 11 12/23/ 025 10:00 AM EDT documented as of this encounter Care Teams Salvage Determiner Relationship Specialty Start Date End Date Vane Diallo DO [facility] [place] [address] PCP - General Family Medicine 10/04/22 documented as of this encounter
--- OUTSIDE RECORDS SUMMARY | 2024-12-23 11:42 | XMS_ITS | Encounter Summary ---
Author Organization [employer] Address [address] [facility] 7[address] [place] [address] Care Team Providers Care Professor Of Legal Studies Name Role Phone Vane Diallo DO Primary Care Provider [phone] Reason for Visit * Reason Comments Med Refill Encounter Details Date Type Department Care Team ([facility] st Contact Info) Description 01/13/2024 Refill [facility] [address] [place] [address] Vane Diallo DO [address] [place], [place] [id number] Chronic left-sided low back pain with left-sided sciatica Social History Tobacco Use Types Packs/Day Years [...] as of this encounter Visit Diagnoses Diagnosis Chronic left-sided low back pain with left-sided sciatica documented in this encounter Additional Health Concerns Assessment Noted Time PHQ-9 Depression Total Score: 7 12/09/19 24 9:41 AM EDT documented as of this encounter Care Teams Professor Of Legal Studies Relationship Specialty Start Date End Date Vane Diallo DO [address] [place] [address] PCP - General Family Medicine 10/04/22 documented as of this encounter
[2024-12-23 12:09] LABS: Prostate Specific Antigen Scr 5.85 ng/mL (<0.05-4.0)
[2024-12-23 12:26] LABS: Alanine Aminotransferase 15 U/L (0-40); Albumin Level 4.3 g/dL (3.5-5.0); Alkaline Phosphatase 60 U/L (39-117); Anion Gap 10 (12-20); Aspartate Amino Transferase 22 U/L (5-37); Bilirubin Direct 0.1 mg/dL (0.0-0.5); Bilirubin Total 0.3 mg/dL (0.0-1.0); Blood Urea Nitrogen 9 mg/dL (9-16); Calcium 9.5 mg/dL (8.4-10.2); Carbon Dioxide 30 mmol/L (22-29); Chloride 104 mmol/L (96-108); Cholesterol 222 mg/dL (<200); Estimated Glomerular Filt Rate > 60; Free T4 (Free Thyroxine) 0.95 ng/dL (0.71-1.85); Glucose Random 78 mg/dL (60-115); HDL Cholesterol 56 mg/dL (>40); LDL Cholesterol Calculated 128 mg/dL (<100); Potassium 4.2 mmol/L (3.3-5.1); Sodium 140 mmol/L (135-145); Thyroid Stimulating Hormone 0.79 uIU/mL (0.32-4.0); Triglycerides 194 mg/dL (<150); Vitamin D 25-OH Total 37.4 ng/mL (>30)
[2024-12-23 12:40] LABS: CT PCR NOT DETECTED (Not Detect.); NG PCR NOT DETECTED (Not Detect.)
[2024-12-24 04:22] LABS: HBS Num1 0.19 mIU/mL (0-7.99); HBsAGNum1 0.33 S/CO (0.00-0.99); HIV AB/AG Nonreactive (Nonreactive); HIV Num 1 0.06 S/CO (0.00-0.99); Hepatitis B Surface Antigen Negative (Negative); ~HepC Num1 0.07 S/CO (0.00-0.79); ~Hepatitis B Surface Antibody NONREACTIVE (Nonreactive); ~Hepatitis C Antibody Nonreactive (Nonreactive)
[2024-12-24 13:19] LABS: RPR Rapid Plasma Reagin NON-REACTIVE (NON-REACTIVE)
== END 2024-12-23 10:11 | disposition home or self-care (01) ==
LOC: HO.HHCL 10:10
PROVIDERS: Visit Provider Family Medicine
DX: Z00.00 Encounter for general adult medical examination without abnormal findings (principal); F31.9 Bipolar disorder, unspecified; E78.49 Other hyperlipidemia; K21.9 Gastro-esophageal reflux disease without esophagitis; R91.1 Solitary pulmonary nodule; N40.0 Benign prostatic hyperplasia without lower urinary tract symptoms; R97.20 Elevated prostate specific antigen [PSA]; M54.2 Cervicalgia; M54.9 Dorsalgia, unspecified; G89.29 Other chronic pain; M25.562 Pain in left knee; G47.33 Obstructive sleep apnea (adult) (pediatric); Z68.26 Body mass index [BMI] 26.0-26.9, adult; Z85.828 Personal history of other malignant neoplasm of skin; Z86.0100 Personal history of colon polyps, unspecified; Z12.5 Encounter for screening for malignant neoplasm of prostate
CPT/HCPCS: 80048; 80061; 80076; 82306; 83036; 84153; 84439; 84443; 85025; 86592; 86706; 86803; 87340; 87389; 87491; 87591

== ENCOUNTER 2025-03-09 08:42 | Outpatient (AMB) | payer OTHER, SELFPAY ==
--- NOTE | 2025-03-09 08:43 | MHC.OFFVIS ---
Vital Signs 03/09/25 09:00 Height 5 ft 8 in Weight 167 lb BMI 25.4 BP 134/84 Blood Pressure Location Lt brachial Position Sitting Pulse 56 Pulse Source Pulse Oximeter Pulse Oximetry (%) 98 Oxygen Delivery Method Room Air Intake Visit Reasons: [place] screening r/s 01/13/25 Intake Note: New pt for recall colo. Hx of multiple polypectomy. Last colo in [facility]. Unknown date. CC; Pt states he had benign polypectomy 5-6 years ago in [place]. Patrol Agent Required: No Accompanied by: Self / Same As Patient Allergies No Known Allergies Allergy (Verified 03/09/25 08:44) Medication List - Last Reconciled 03/09/25 by Carmen Lopez, WASH OIL COOLER OPERATOR- atorvastatin 80 mg PO DAILY baclofen 10 mg PO TID bupropion HCl SR (Wellbutrin SR) 150 mg PO DAILY buspirone 15 mg PO BID [compression / shoulder support brace As directed] diclofenac sodium 1% 2 grams topical QID PRN ezetimibe 10 mg PO DAILY finasteride 5 mg PO DAILY fluorouracil 5% 1 appl topical BID gabapentin 400 mg PO QID pantoprazole 40 mg PO DAILY quetiapine (Seroquel) 25 mg PO BEDTIME risperidone mg PO tamsulosin mg PO DAILY tramadol 50 mg PO Q12H 7 days zolpidem 10 mg PO BEDTIME PRN HPI HPI [place] screening r/s 01/13/25: Details: 54 year old? male here today for pre colonoscopy screening.? Patient was sent to us by his PCP.? Last colonoscopy about 5 or 6 years ago in [place]. Patient reports that he had benign polyps. Family history of CRC. Patient denies melena, hematochezia, unintentional weight loss or ribbon like stools. Patient denies dyspepsia or dysphagia or odynophagia. Patient is on pantoprazole daily for acid reflux that has been controlled. Patient had been on it for long time. ? Denies history of difficulty with sedation or anesthesia in the past.? History of sleep apnea, not using CPAP machine anymore.? Denies any history of cardiac, renal, pulmonary, or hepatic disease.?? No history of infectious? diseases like hepatitis A, B, C, HIV or tuberculosis.? Patient is not on any anticoagulation [facility] Medical History (Updated 03/09/25 @ 19:00 by Carmen Lopez [facility]) Hyperlipidemia GERD (gastroesophageal reflux disease) BPH (benign prostatic hyperplasia) Nicotine dependence, cigarettes, uncomplicated Depressed Anxiety Chronic neck pain Epidermal cyst Surgical History Hx of surgical procedure (~04/01/23) History of incisional hernia repair History of carpal tunnel surgery History of umbilical hernia repair History of inguinal hernia repair History of basal cell carcinoma excision History of arthroscopic surgery of shoulder Family History Sister [place] tumor Social History Alcohol intake: current Alcohol intake frequency: holidays/special occasions only Alcohol type: beer Patient Tobacco Use Status: Current everyday Tobacco user Tobacco use type: Cigarette Cigarette Packs Per Day: 1 Cigarettes Per Day: 20.0 Years Smoked: (current smoker, onset 10yo, 1ppd x 44yrs, 40pyh) Current occupational status: disabled Current occupation: rt hand Review of Systems Const Denies weight gain and Denies weight loss ENT Reports no additional complaints, Denies dysphagia and Denies odynophagia Card Reports no additional complaints Resp Reports no additional complaints GI Denies abdominal pain, Denies belching, Denies melena, Denies bloating, Denies change in bowel habits, Denies dysphagia, Denies excessive flatus, Denies dyspepsia, Denies heartburn, Denies diarrhea, Denies loose stools, Denies nausea, Denies odynophagia and Denies vomiting Reports no additional complaints Musc Reports no additional complaints Neuro Reports no additional complaints Psych Reports no additional complaints Endo Reports no additional complaints Physical Exam Vital Signs: Last Vital Signs Pulse 56 03/09/25 09:00 BP 134/84 03/09/25 09:00 Pulse Ox 98 03/09/25 09:00 Oxygen Delivery Method Room Air 03/09/25 09:00 BMI result Body Mass Index 25.4 Const General: healthy appearing, no acute distress and well developed Nutritional Appearance: well nourished Orientation/consciousness: patient oriented x3 Resp Effort & Inspection: normal respiratory effort, able to speak in complete sentences, no tracheal deviation and symmetric chest movement Auscultation: clear to auscultation bilaterally Cardio Rate: regular rate GI Inspection: Yes normal to inspection and No distended Palpation (GI): Soft to palpation, not firm, nontender and No hepatosplenomegaly present Auscultation: normal bowel sounds General: Yes no CVA tenderness Back/Spine/Pelvis Back: no CVA tenderness Skin General skin exam: elasticity normal, turgor normal and dry skin Neuro General: patient oriented x3 Psych Appearance: grossly normal Mental Status: mental status grossly normal Assessment & Plan Assessment & Plan (1) GERD (gastroesophageal reflux disease): Code(s): K21.9 - Gastro-esophageal reflux disease without esophagitis Category: Medical Qualifiers: Esophagitis presence: esophagitis presence not specified Qualified Code(s): K21.9 - Gastro-esophageal reflux disease without esophagitis (2) Screen for colon cancer: Code(s): Z12.11 - Encounter for screening for malignant neoplasm of colon Plan Patient denies any GI, cardiac or respiratory symptoms.? Denies any issues with anesthesia in the past.? Family history of CRC, history of sleep apnea, not using CPAP anymore. No history infectious diseases in the past or present.? Not on any anticoagulation therapy.?? Patient denies melena, hematochezia, unintentional weight loss or ribbon like stools.? Discussed at length the pre-procedure,? prep, diet & medications as well as what to expect prior, during and after the procedure.?? Stressed the importance of good bowel prep.? Recommended the use of Vaseline or Calmoseptine OTC & baby wipes with bowel movements to promote comfort.? ?Patient verbalizes understanding and agrees to plan of care.? He was given the opportunity to ask questions and all questions answered.? We will see him after the procedure.? Medications: New bisacodyl (Dulcolax (bisacodyl)) take 4 tabs at noon the day before your colonoscopy 20 mg (4 x 5 mg) PO ONCE 4 tabs 0RF constipation 1 day Z12.11 - Encounter for screening for malignant neoplasm of colon polyethylene glycol 3350 (Miralax) As directed by gastroenterology department at [facility] 238 grams PO ONCE 238 grams 0RF Z12.11 - Encounter for screening for malignant neoplasm of colon Coding Level of Care Code New Pt Level 3 (08572) Diagnoses Gastroesophageal reflux disease, unspecified whether esophagitis present K21.9 Esophagitis presence: esophagitis presence not specified Screen for colon cancer Z12.11 Time Spent (min) 40 Comment 30 minutes spent with patient and additional 10 minutes spent reviewing his records
--- OUTSIDE RECORDS SUMMARY | 2025-03-09 08:54 | XMS_ITS | Patient Health Record ---
Author Organization [employer] Address [address] [address] [place] [address] Care Team Providers Care Silver Recovery Operator Name Role Phone Lakeisha Interiano Unavailable [phone] Allergies No Known Allergies Reason For Referral No Information Medications Medication SIG (Take, Route, Frequency, Duration) Notes Start Date End Date Status busPIRone HCl 5 MG 1 TABLET ORALLY ONCE A DAY 90 DAYS; Duration: 90 Active Finasteride 5 MG TAKE ONE TABLET EVER Y DAY; Duration: 90 Active Pantoprazole Sodium 40 MG TAKE ONE TABLE T EVERY DAY; Duration: 90 Active Ambien 10 MG 1 tablet at bedtime as needed Orally Once a day Active Meloxicam 15 MG 1 tablet Orally Once a day; Duration: 90 days Active Voltaren 1 % apply 1 gram Transdermal BID Active Tolak 4 % 1 application Externally 4 times a day Active Gabapentin 800 MG 1 tablet Orally ever y 6 h; Duration: 90 days Active Tamsulosin HCl 0.4 MG TAKE ONE CAPSULE E VERY DAY; Duration: 90 Active Xanax 1 MG 1 tablet Orally once a day Active DULoxetine HCl 60 MG 1 CAPSULE ORALLY ON CE A DAY 90 DAYS; Duration: 90 Active traMADol HCl 50 MG TAKE ONE TABLET BY MOUTH EVERY 12 HOURS 07/25/2021 Active Belsomra 10 MG 1 tablet at bedtime as needed Orally Once a day Not-Taking Ezetimibe 10 MG 1 TABLET ORALLY ONCE A DAY 90 DAYS; Duration: 90 Active Atorvastatin Calcium 40 MG TAKE ONE TABLET EVERY DAY; Duration: 90 Active Social History Tobacco Use: Social [...] Problem Status W/U Status Risk Notes Problem Opioid dependence (23166968) Opioid dependence, uncomplicated (F11.20) Active confirmed Taking Tramadol 50mg more than six months ( since 12/23/2019) . Problem Mild recurrent major depression (93724223) Major depressive disorder, recurrent, mild (F33.0) Active confirmed Under treatment with Duloxetine 60mg Problem Chronic pain (97260065) Other chronic pain (G89.29) Active confirmed Problem Sciatica (33466991) Lumbago with sciatica, right side (M54.41) Active confirmed Problem Lower urinary tract symptoms due to benign prostatic hypertrophy (93933278150002) Benign prostatic hyperplasia with lower urinary tract symptoms (N40.1) Active confirmed Problem Gastroesophageal reflux disease without esophagitis (587554516) Gastroesophageal reflux disease without esophagitis (K21.9) Active confirmed Problem Anxiety (85561117) Anxiety (F41.9) Active confi rmed Problem Sedative, 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) Active confirmed Taking Xanax 1mg more than six months ( since 02/26/2020) Problem History of malignant neoplasm of skin (situation) (008380309) History of skin cancer in adulthood (Z85.828) Active confirmed Problem Hyperlipidemia (26040385) Hyperlipidemia (E78.5) Active confirmed Patient on statin treatment Problem Simple chronic bronchitis (16080534) Simple chronic bronchitis (J41.0) Active confirmed Problem Moderate smoker (20 or less per day) (69608270) Moderate smoker (20 or less per day) (F17.200) Active confirmed Plan Of Treatment Future Test Test Name Order Date FOBT {Occult Blood, Fecal} IA (ColoFIT) 03/13/2021 Lipid Panel 03/16/2021 CBC With Differential/Platelet Urinalysis, Complete 09/04/2021 TSH 09/04/2021 Lipid Panel 09/04/2021 CMP {Comprehensive Metabolic Panel} (14) 09/04/2021 Insurance Providers Payer Name Payer Address Payer Phone Subscriber Number Group Number Insured Name Patient Relationship to Insured Coverage Start Date Coverage End Date [facility] [address] [address] [place] [address] [phone] [id number] Rudy Worley Self - patient is the insured 1 Medical (General) History Medical History History ICD Code skin cancer acid reflux cervical spondylosis anxiety depression hyperlipidemia
--- OUTSIDE RECORDS SUMMARY | 2025-03-09 08:54 | XMS_ITS | Encounter Summary ---
Author Organization [employer] Address [address] [place] [address] [address] [place] [address] Care Team Providers Care Capacitor Inspector Name Role Phone Vane Diallo DO Primary Care Provider [phone] Reason for Visit * Reason Onset Date Comments Prior Authorization 10/08/2022 Encounter Details Date Type Department Care Team (Late st Contact Info) Description 10/08/2022 Telephone [facility] [address] [place] [address] Vane Diallo DO [address] [place] [address] Prior Authorization Social History Tobacco Use Types [...] on filedocumented in this encounter Care Teams Capacitor Inspector Relationship Specialty Start Date End Date Vane Diallo DO [address] [place] [address] PCP - General Family Medicine 10/04/22 documented as of this encounter
[2025-03-09 09:00] VITALS: BP 134/84; PULSE 56; O2SAT 98; BMI 25.4
== END 2025-03-09 09:40 | disposition home or self-care (01) ==
LOC: HO.HGI 08:43
PROVIDERS: PCP Family Medicine; Visit Provider Nurse Practitioner Family
DX: K21.9 Gastro-esophageal reflux disease without esophagitis (principal); Z12.11 Encounter for screening for malignant neoplasm of colon; Z86.0100 Personal history of colon polyps, unspecified; Z80.0 Family history of malignant neoplasm of digestive organs
CPT/HCPCS: 99203

== ENCOUNTER → 2025-03-09 08:42 | Outpatient (BNVA) | payer OTHER, SELFPAY | PROVIDERS: PCP Family Medicine; Visit Provider Nurse Practitioner Family | DX: Z01.818 Encounter for other preprocedural examination (principal); K21.9 Gastro-esophageal reflux disease without esophagitis | CPT/HCPCS: 99202 ==

== ENCOUNTER 2025-05-05 06:41 | Day surgery (SDC) | payer OTHER, SELFPAY ==
--- OUTSIDE RECORDS SUMMARY | 2025-04-29 17:19 | XMS_ITS | Encounter Summary ---
Author Organization [employer] Address [address] [place] [address] [address] [place] [address] Care Team Providers Care Drilling Field Professional Name Role Phone Vane Diallo DO Primary Care Provider [phone] Reason for Visit * Reason Onset Date Comments Call Back 11/12/2022 Encounter Details Date Type Department Care Team ([facility] st Contact Info) Description 11/12/2022 Telephone [facility] [address] [place] [address] Vane Diallo DO [address] [place] [address] Call Back Social History Tobacco Use Types [...] Several days 11/15/2022 9:54 AM ALBAROT Samantha Maire MA Trouble falling or staying asleep, or [...] for recliner will be sent to his senior care manager for processing. * Telephone Encounter - Sandhya Domingo - 11/12/2022 9:21 AM EDT Tc from pt requesting a status on recliner chair that PCP was going to provide for pt on last visit10/31/2022. Please contact pt at [phone] Czech speaker documented in this encounter Plan of Treatment Not on file documented as of this encounter Visit Diagnoses Not on filedocumented in this encounter Care Teams Drilling Field Professional Relationship Specialty Start Date End Date Vane Diallo DO [address] [place] [address] PCP - General Family Medicine 10/04/22 documented as of this encounter
--- OUTSIDE RECORDS SUMMARY | 2025-04-29 17:19 | XMS_ITS | Patient Health Record ---
Author Organization [employer] Address [address] [address] [place] [address] Care Team Providers Care Director Of Marketing Communications Name Role Phone Lakeisha Interiano Unavailable [phone] Allergies No Known Allergies Reason For Referral No Information Medications Medication SIG (Take, Route, Frequency, Duration) Notes Start Date End Date Status busPIRone HCl 5 MG Tablet 1 TABLET ORALL Y ONCE A DAY 90 DAYS; Duration: 90 Active Finasteride 5 MG Tablet TAKE ONE TABLET EVERY DAY; Duration: 90 Active Pantoprazole Sodium 40 MG Tablet Delayed Release TAKE ONE TABLET EVERY DAY; Duration: 90 Active Ambien 10 MG Tablet 1 tablet at bedtime as needed Orally Once a day Active Meloxicam 15 MG Tablet 1 tablet Orally O nce a day; Duration: 90 days Active Voltaren 1 % Gel apply 1 gram Transdermal BID Active Tolak 4 % Cream 1 application Externally 4 times a day Active Gabapentin 800 MG Tablet 1 tablet Orally every 6 h; Duration: 90 days Active Tamsulosin HCl 0.4 MG Capsule TAKE ONE CAPSULE EVERY DAY; Duration: 90 Active Xanax 1 MG Tablet 1 tablet Orally once a day Active DULoxetine HCl 60 MG Capsule Delayed Release Particles 1 CAPSULE ORALLY ONCE A DAY 90 DAYS; Duration: 90 Active traMADol HCl 50 MG Tablet TAKE ONE TABLE T BY MOUTH EVERY 12 HOURS 07/25/2021 Active Belsomra 10 MG Tablet 1 tablet at bedtim e as needed Orally Once a day Not-Taking Ezetimibe 10 MG Tablet 1 TABLET ORALLY O NCE A DAY 90 DAYS; Duration: 90 Active Atorvastatin Calcium 40 MG Tablet TAKE ONE TABLET EVERY DAY; Duration: 90 Active Social History Tobacco Use: Social History Observation Description Date Details (start date - stop date) Current Smoker NA - NA Social History Tobacco Use Social Info Question Answer Notes Tobacco Use/Smoking Are you a current smoker How often do you smoke cigarettes? every day How many cigarettes a day do you smoke? 11-20 Tobacco use other than smoking: Are you an other tobac co user? No Drugs/Alcohol: Social Info Question Answer Notes Alcohol Screen (Audit-C) Did you have a drink containing alcohol in the past year? No Points 0 Interpretation Negative Drugs Have you used drugs other than those for medical reasons in the past 12 months? No Caffeine Intake: 1-2 cups per day Additional Details Category Social Info Options Details Drugs/Alcohol: Do you smoke marijuana? De nies Do you drink alcohol? Socially Problems Problem Type SNOMED Code ICD Code Onset Dates Problem Status W/U Status Risk Notes Problem Opioid dependence (57742110) Opioid dependence, uncomplicated (F11.20) Active confirmed Taking Tramadol 50mg more than six months ( since 12/23/2019) . Problem Mild recurrent major depression (72185730) Major depressive disorder, recurrent, mild (F33.0) Active confirmed Under treatment with Duloxetine 60mg Problem Chronic pain (12465759) Other chronic pain (G89.29) Active confirmed Problem Sciatica (52766409) Lumbago with sciatica, right side (M54.41) Active confirmed Problem Lower urinary tract symptoms due to benign prostatic hypertrophy (32423264004758) Benign prostatic hyperplasia with lower urinary tract symptoms (N40.1) Active confirmed Problem Gastroesophageal reflux disease without esophagitis (738149949) Gastroesophageal reflux disease without esophagitis (K21.9) Active confirmed Problem Anxiety (04816274) Anxiety (F41.9) Active confi rmed Problem Sedative, 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) Active confirmed Taking Xanax 1mg more than six months ( since 02/26/2020) Problem History of malignant neoplasm of skin (situation) (921114709) History of skin cancer in adulthood (Z85.828) Active confirmed Problem Hyperlipidemia (68920580) Hyperlipidemia (E78.5) Active confirmed Patient on statin treatment Problem Simple chronic bronchitis (82553002) Simple chronic bronchitis (J41.0) Active confirmed Problem Moderate smoker (20 or less per day) (38363831) Moderate smoker (20 or less per day) [...] Insured Coverage Start Date Coverage End Date [facility] [address] [address] [place] [address] [id number] Rudy Worley Self - patient is the insured 1 Medical (General) History Medical History History ICD Code skin cancer acid reflux cervical spondylosis anxiety depression hyperlipidemia
--- OUTSIDE RECORDS SUMMARY | 2025-04-29 17:19 | XMS_ITS | Encounter Summary ---
Author Organization [employer] Address [address] [place] [address] [address] [place] [address] Care Team Providers Care Tracer Powder Blender Name Role Phone Vane Diallo DO Primary Care Provider [phone] Reason for Visit * Reason Onset Date Comments Prior Authorization 10/08/2022 Encounter Details Date Type Department Care Team (Late st Contact Info) Description 10/08/2022 Telephone [facility] [address] [place] [address] Vane Diallo DO [address] [place] [address] Prior Authorization Social History Tobacco Use Types [...] on filedocumented in this encounter Care Teams Tracer Powder Blender Relationship Specialty Start Date End Date Vane Diallo DO [address] [place] [address] PCP - General Family Medicine 10/04/22 documented as of this encounter
--- OUTSIDE RECORDS SUMMARY | 2025-04-29 17:20 | XMS_ITS | Clinical Summary ---
Author Organization [employer] Address [address] [place] [address] 7t [place] [address] Care Team Providers Care Conductor Pullman Name Role Phone Vane Diallo Primary Care Provider [phone] Allergies No known active allergies Medications * This document contains information received from the source organization and may not represent a complete record from that organization. pantoprazole (ProtoNix) 40 MG EC tabletIndications:C hronic gastroesophageal reflux disease TAKE 1 TABLET BY MOUTH TWICE DAILY BEFORE BREAKFAST AND DINNER, DO NOT BREAK, CRUSH, DISSOLVE OR CHEW 180 tablet 024 Active baclofen (Lioresal) 10 MG tabletIndications:C [...] MOUTH EVERY 6 HOURS 360 tablet 1 025 Active busPIRone (Buspar) 15 MG tabletIndications:C hronic bipolar disorder (CMS/HCC) Take 1 tablet (15 mg) by mouth 2 times daily. 180 tablet 1 05/21/2 025 Active risperiDONE (RisperDAL) 1 MG tablet Take 1.5 tablets (1.5 mg) by mouth at bedtime. 135 tablet 1 Active atorvastatin (Lipitor) 80 MG tablet Take 1 tablet (80 mg) by mouth Once per day. 90 tablet 3 2025 Active lidocaine (Lidoderm) 5 % patchIndications:Ch ronic neck and back pain Apply 2 patches topically if needed each day for mild pain (pain). Remove & discard patch within 12 hours or as directed by MD. 60 patch 3 Active Acetaminophen Extra Strength 500 MG tablet TAKE 1 TABLET BY MOUTH EVERY 6 HOURS NEEDED FOR MILD PAIN 100 tablet 2 Active Diclofenac Sodium 1 % gel APPLY 2 GRAMS TOPICALLY 4 TIMES A DAY IN THE MORNING, AT NOON, IN THE EVENING, AND AT BEDTIME NEEDED FOR PAIN 200 g 2 Active zolpidem (Ambien) 10 MG tabletIndications:C hronic bipolar disorder (CMS/HCC) TAKE 1 TABLET BY MOUTH EVERY DAY AT BEDTIME NEEDED FOR SLEEP 30 tablet 5 Active naproxen (Naprosyn) 500 MG tablet TAKE 1 TABLET BY MOUTH TWICE DAILY IN THE MORNING AND AT BEDTIME NEEDED FOR MILD PAIN 30 tablet 2 Active zolpidem (Ambien) 10 MG tabletIndications:C hronic bipolar disorder (CMS/HCC) Take 1 tablet (10 mg) by mouth if needed at bedtime for sleep. 30 tablet 5 024 2024 Discontinued acetaminophen (Tylenol Extra Strength) 500 MG tablet Take 1 tablet (500 mg) by mouth every 6 (six) hours if needed for mild pain. 100 tablet 2 2024 Discontinued naproxen (Naprosyn) 500 MG tablet Take 1 tablet (500 mg) by mouth if needed in the morning and at bedtime for mild pain. 30 tablet 2 2024 Discontinued Diclofenac Sodium 1 % gel Apply 2 g topically if needed in the morning, at noon, in the evening, and at bedtime (pain). 150 g 3 2024 Discontinued Active Problems Problem Noted Date Diagnosed Date [...] management. For any issues or concerns, contact [facility]. All his questions were answered. He agrees [...] & Plan (01/31/2023 9:30 AM EDT): Assessment: Patient has been experiencing worsening daily symptoms: [...] had a negative experiencing with therapy in [place] but is willing to try once more. Rudy is already connected to psychopharmacology services at [facility] with Daniel Ricketts. At this time Rudy Hardwick meets criteria for Visit Diagnoses: Problem List Items Addressed This Visit Other Chronic bipolar disorder ([facility]) Patient ready to address current needs Yes Strengths include ability to advocate for himself PLAN: 1. Follow up with [facility]: Not recommended for follow-up 2. Patient goal [...] pain with opioid pain medication (Tramadol). No ANOTNETTE. Denies trauma history. Strong fam hx of [...] obstruction or gangrene 01/30/2023 01/31/20 23 Encounters * This document contains information received from the source organization and may not represent a complete record from that organization. Date Type Department Care Team Description 04/20/2025 Refill [facility] [address] [place] [address] Vane Diallo DO 04/15/2025 Refill [facility] [address] [place] [address] Vane Diallo DO Chronic bipolar disorder (CMS/HCC) 04/11/2025 Refill [facility] [address] [place] [address] Vane Diallo DO 01/30/2025 Orders Only [facility] [address] [place] [address] Vane Diallo, Elevated PSA (Primary Dx); History of basal cell carcinoma from Last 3 Months Immunizations Immunization Administration [...] 62 12/23/2024 9:19 AM EDT Temperature 36.3 C (97.3 F) 12/23/2024 9:19 AM EDT Respiratory Rate 21 12/23/2024 9:19 AM EDT [...] of 3 - 19+ 3-dose series) 1987 Zoster Vaccines (2 of 2) 06/02/2024 04/07/2024 COVID-19 Vaccine (1 - season) 2025 Influenza Vaccine (#1) 2025 10/31/2022 Depression Monitoring 06/25/2025 12/23/2024, 025 Alcohol/Substance Use Screening 12/23/2025 12/23/2024 Diabetes: Hemoglobin A1C 12/23/2025 025, 02/12/2024, 10/30/2023 Disability Screening 12/23/2025 12/23/2024 SDOH Screening 12/23/2025 12/23/2024 Tobacco Screening 12/23/2025 12/23/2024 Lipid Panel 12/23/2029 12/23/2024, 07/1 , 10/30/2023, Additional history exists RSV Patients and Patients Aged 60 years or older (1 - 1-dose 75+ series) 2043 Pneumococcal Vaccine: 50+ Years Completed 10/31/2022 HIV Screening Completed 12/23/2024, 10/30/2023 Hepatitis C Screening Completed 12/23/2024, 023 HIB Vaccines Aged Out No longer eligi [...] Procedure Name Priority Date/Time Associated Diagnosis Comments HEPATITIS C AB W/REFL TO HCV RNA, QN, PCR Routine 12/23/2024 10:12 AM EDT Chronic bipolar disorder (CMS/HCC) Other hyperlipidemia Chronic gastroesophageal reflux disease Pulmonary nodule Benign prostatic hyperplasia, unspecified whether lower urinary tract symptoms present Elevated PSA Chronic neck and back pain Chronic pain of left knee ROLY (obstructive sleep apnea) History of basal cell carcinoma Hx of colonic polyps BMI 26.0-26.9,adult Chronic neck pain HIV 1/2 ANTIGEN/ANTIBODY, FOURTH GENERATION W/RFL Routine 12/23/2024 10:12 AM EDT Chronic bipolar disorder (CMS/HCC) Other hyperlipidemia Chronic gastroesophageal reflux disease Pulmonary nodule Benign prostatic hyperplasia, unspecified whether lower urinary tract symptoms present Elevated PSA Chronic neck and back pain Chronic pain of left knee ROLY (obstructive sleep apnea) History of basal cell carcinoma Hx of colonic polyps BMI 26.0-26.9,adult Chronic neck pain HEMOGLOBIN A1C Routine 12/23/2024 10:12 AM EDT Chronic bipolar disorder (CMS/HCC) Other hyperlipidemia Chronic gastroesophageal reflux disease Pulmonary nodule Benign prostatic hyperplasia, unspecified whether lower urinary tract symptoms present Elevated PSA Chronic neck and back pain Chronic pain of left knee ROLY (obstructive sleep apnea) History of basal cell carcinoma Hx of colonic polyps BMI 26.0-26.9,adult Chronic neck pain LIPID PANEL, STANDARD Routine 12/23/2024 10:12 AM EDT Chronic bipolar disorder (CMS/HCC) Other hyperlipidemia Chronic gastroesophageal reflux disease Pulmonary nodule Benign prostatic hyperplasia, unspecified whether lower urinary tract symptoms present Elevated PSA Chronic neck and back pain Chronic pain of left knee ROLY (obstructive sleep apnea) History of basal cell carcinoma Hx of colonic polyps BMI 26.0-26.9,adult Chronic neck pain from Last 3 Months or Most Recently Relevant to Health Maintenance Results * Hepatitis C Antibody with Reflex to HCV, RNA, Quantitative, Real-Time PCR (12/23/2024 10:12 AM EDT) Hepatitis C Antibody Nonreactive Nonreactive [facility] Comment:Antibodies to HCV no t detected; does not exclude early acuteHCV infection. Blood Venous blood specimen / Unknown 12/23/2024 10:12 AM EDT 12/23/2024 11:04 AM EDT us Vane Diallo DO LAB BLOOD ORDERABLES Final R esult [facility] [address] [place] [phone] * HIV-1/2 Antigen and Antibodies, Fourth Generation, with Reflexes (12/23/2024 10:12 AM EDT) HIV AB/AG Nonreactive Nonreactive [facility] Comment:HIV-1 p24 Ag and/or HIV-1/HIV-2 Ab not detected.A test result that is nonreactive does not exclude thepossibility of exposure to or infection with HIV-1 and/orHIV-2. Nonreactive results in this assay for individualswith prior exposure to HIV-1 and/or HIV-2 may be due toantigen and antibody levels that are below the limit ofdetection of this assay.The [employer] HIV Ag/Ab Combo assay result andsupplemental assay results should be interpreted inconjunction with the patient's clinical presentation,history and other laboratory results. If the results areinconsistent with clinical evidence, additional testing issuggested to confirm the result. Blood Venous blood specimen / Unknown 12/23/2024 10:12 AM EDT 12/23/2024 11:04 AM EDT Vane Diallo LAB BLOOD ORDERABLES Final R esult Performing Organization Address [facility] Co de Phone Number [facility] [address] [place] [phone] * Hemoglobin A1c (12/23/2024 10:12 AM EDT) Hemoglobin A1c 5.7 <6.0 % [facility] Comment:Hemoglobin A1C Refer ence Range Adults: 4.8 - 6.0 % Non diabetic: < 6.0 % Goal: < 7.0 %Additional Action Suggested: > 8.0 %Note: Hemoglobin A1c results are invalid for patients with abnormal amounts of HbF. Blood transfusions may impact the HbA1c concentration in the patient sample. Estimated Average Glucose 117 mg/dL [facility] Comment:eAG = Estimated ave rage glucose which is %A1C expressed asaverage glucose, using the formula of the G4Y[place] Glucose study (ADAG), Diabetes Care, Vol.31,#8,Mar. 2007 Blood Venous blood specimen / Unknown 12/23/2024 10:12 AM EDT 12/23/2024 11:04 AM EDT Vane Diallo [employer] LAB BLOOD ORDERABLES Final R esult Performing Organization Address [facility] Co de Phone Number [facility] [address] [place] [phone] * (ABNORMAL) Lipid Panel, Standard (12/23/2024 10:12 AM EDT) Triglycerides 194(H) <150 mg/dL [facility] Comment:Desirable Triglyceri de: less than 150 mg/dLBorderline High Triglyceride 150-199 mg/dLHigh Triglyceride: 200-499 mg/dLVery High Triglyceride: greater than or equal to 5OO mg/dL Cholesterol 222(H) <200 mg/dL [facility] Comment:Desirable Cholestero l: less than 200 mg/dLBorderline High Cholesterol: 200-239 mg/dLHigh Cholesterol: greater than 239 mg/dL LDL Cholesterol Calculated 128(H) <100 mg/dL [facility] Comment:Desirable LDL: less than 100 mg/dLNear Optimal/Above Optimal LDL: 110- 129 mg/dLBorderline High LDL: 130-159 mg/dLHigh LDL: 160-189 mg/dLVery High LDL: greater than or equal to 190 mg/dL HDL Cholesterol 56 >40 mg/dL [facility] Comment:Desirable HDL: great er than 40 mg/dL Note: This HDL assay may give artificially low results in patients with liver disease. Blood Venous blood specimen / Unknown 12/23/2024 10:12 AM EDT 12/23/2024 11:04 AM EDT us Vane Diallo DO LAB BLOOD ORDERABLES Final R esult [facility] [address] [place] [phone] from Last 3 Months or Most Recently Relevant to Health Maintenance Insurance [facility] < 65 [facility] STAND[facility] Care Teams Conductor Pullman Relationship Specialty Start Date End Date Vane Diallo DO [address] [place] [phone] PCP - General Family Medicine 10/04/22
--- OUTSIDE RECORDS SUMMARY | 2025-04-29 17:20 | XMS_ITS | Encounter Summary ---
Author Organization [employer] Address [address] [facility] [address] [place] [address] Care Team Providers Care Equipment Operation Instructor Name Role Phone RahelVane novoa Primary Care Provider [phone]- [phone] Reason for Visit * Reason Comments Med Refill Encounter Details Date Type Department Care Team ([facility] st Contact Info) Description 06/06/2023 Refill [facility] [address] [place] [address] Maggie Sykes MD [address] [place] [address] History of basal cell carcinoma Social History [...] documented as of this encounter Care Teams Equipment Operation Instructor Relationship Specialty Start Date End Date Vane Diallo DO [address] [place] [phone] PCP - General Family Medicine 10/04/22 documented as of this encounter
--- OUTSIDE RECORDS SUMMARY | 2025-04-29 17:20 | XMS_ITS | Encounter Summary ---
Author Organization [employer] Address [address] [facility] [address] [place] [address] Care Team Providers Care Basket Machine Operator Name Role Phone Vane Diallo DO Primary Care Provider [phone]- [phone] Reason for Visit * Reason Comments Med Refill Encounter Details Date Type Department Care Team ([facility] st Contact Info) Description 01/13/2024 Refill [facility] [address] [place] [address] Vane Diallo DO [address] [place], [place] [phone] Chronic left-sided low back pain with left-sided [...] documented as of this encounter Care Teams Basket Machine Operator Relationship Specialty Start Date End Date Vane Diallo DO [address] [place] [phone] PCP - General Family Medicine 10/04/22 documented as of this encounter
--- OUTSIDE RECORDS SUMMARY | 2025-04-29 17:20 | XMS_ITS | Encounter Summary ---
Author Organization [employer] Address [address] [place] [address] [address]t [place] [address] Care Team Providers Care Veneer Gluer Name Role Phone Vane Diallo DO Primary Care Provider [phone]- [phone] Reason for Visit * Reason Comments Med Change Request Encounter Details Date Type Department Care Team ([facility] st Contact Info) Description 10/08/2022 Refill [facility] [address] [place] [address] Vane Diallo DO [address] [place] [address] History of basal cell carcinoma Social History [...] 11/01/2022 4:51 PM EDT Rx sent to [facility] pharmacy and 5% cream covered with HSN. documented in this encounter Plan of Treatment Not on file documented as of this encounter Visit Diagnoses Diagnosis History of basal cell carcinoma Personal history of other malignant neoplasm of skin documented in this encounter Care Teams Veneer Gluer Relationship Specialty Start Date End Date Vane Diallo DO [address] [place] [phone] PCP - General Family Medicine 10/04/22 documented as of this encounter
--- OUTSIDE RECORDS SUMMARY | 2025-04-29 17:20 | XMS_ITS | Encounter Summary ---
Author Organization [employer] Address [address] [facility] 7t [place] [address] Care Team Providers Care Shipyard Supervisor Name Role Phone Vane Diallo DO Primary Care Provider [phone]- [phone] Reason for Visit * Reason Onset Date Comments Appointment Request 09/06/2023 Encounter Details Date Type Department Care Team ([facility] st Contact Info) Description 09/06/2023 Telephone [facility] [address] [place], [place] [phone] Vane Diallo DO [address] [place], [place] [phone] Appointment Request Social History Tobacco Use Types [...] Pt is requesting a provider who speak kazakh. documented in this encounter Plan of Treatment Not on file documented as of this encounter Visit Diagnoses Not on filedocumented in this encounter Additional Health Concerns Assessment Noted Time PHQ-9 Depression Total Score: 6 08/08/19 24 9:45 AM EST documented as of this encounter Care Teams Shipyard Supervisor Relationship Specialty Start Date End Date Vane Diallo DO [address] [place] [address] PCP - General Family Medicine 10/04/22 documented as of this encounter
--- OUTSIDE RECORDS SUMMARY | 2025-04-29 17:20 | XMS_ITS | Encounter Summary ---
Author Organization [employer] Address [address] [facility] [address]t [place] [address] Care Team Providers Care Civilian Jail Officer Name Role Phone Vane Diallo DO Primary Care Provider [phone]- [phone] Reason for Visit * Reason Comments Med Refill Encounter Details Date Type Department Care Team ([facility] st Contact Info) Description 01/04/2024 Refill [facility] [address] [place] [address] Vane Diallo DO [address] [place], [place] [phone] History of basal cell carcinoma Social History [...] documented as of this encounter Care Teams Civilian Jail Officer Relationship Specialty Start Date End Date Vane Diallo DO [address] [place] [phone] PCP - General Family Medicine 10/04/22 documented as of this encounter
--- OUTSIDE RECORDS SUMMARY | 2025-04-29 17:20 | XMS_ITS | Encounter Summary ---
Author Organization [employer] Address [address] [facility] 7t [place] [address] Care Team Providers Care Cellars Supervisor Name Role Phone Vane Diallo DO Primary Care Provider [phone]- [phone] Reason for Visit * Reason Onset Date Comments Referral 12/16/2023 Encounter Details Date Type Department Care Team ([facility] st Contact Info) Description 12/16/[address] [facility] [address] [place] [address] Vane Diallo DO [address] [place] [address] Referral Social History Tobacco Use Types Packs/Day [...] documented as of this encounter Care Teams Cellars Supervisor Relationship Specialty Start Date End Date Vane Diallo DO [address] [place] [address] PCP - General Family Medicine 10/04/22 documented as of this encounter
[2025-05-03 14:45] VITALS: BMI 25.4
[2025-05-05 07:52] VITALS: BMI 25.8
[2025-05-05 07:55] VITALS: BP 135/76; PULSE 56; RESP 16; TEMP 36.4; O2SAT 98
--- NOTE | 2025-05-05 08:03 | HO.ANESPROP2 ---
Documented by User: Lynne Mina NP 05/04/25 14:12 HPI - Anesthesia Eval Consult details Narrative: 55 yr old male for upper endoscopy, colonoscopy Smoking 1-1.5 pks per day [facility] Active Problems Active Problems: All Active Problems Osteoarthritis of left knee (Acute) Pulmonary nodule (Acute) Proximal humeral fracture (Acute ~09/2022) GERD (gastroesophageal reflux disease) (Acute) Epidermal cyst (Acute) Nicotine dependence, cigarettes, uncomplicated (Acute) Past Medical History Medical History (Updated 05/05/25 @ 07:50 by Ellyn Rodriguez RN) Right shoulder injury Hyperlipidemia GERD (gastroesophageal reflux disease) BPH (benign prostatic hyperplasia) Nicotine dependence, cigarettes, uncomplicated Depressed Anxiety Chronic neck pain Epidermal cyst Family History Family History Sister Jazzyenberg tumor Surgical History Surgical History (Updated 05/03/25 @ 14:48 by Monet Machuca RN) H/O colonoscopy Hx of surgical procedure (~04/01/23) History of incisional hernia repair History of carpal tunnel surgery History of umbilical hernia repair History of inguinal hernia repair History of basal cell carcinoma excision History of arthroscopic surgery of shoulder Social History Social History Alcohol intake: current Alcohol intake frequency: holidays/special occasions only Alcohol type: beer Patient Tobacco Use Status: Current everyday Tobacco user Tobacco use type: Cigarette Cigarette Packs Per Day: 1 Cigarettes Per Day: 20.0 Years Smoked: (current smoker, onset 10yo, 1ppd x 44yrs, 40pyh) Use of substances other than those prescribed or required for medical reasons: No Are you DNR?: No Advance Directives: No Advance Directives Information Provided: Yes Poor oral hygiene: No Current occupational status: disabled Current occupation: rt hand Meds Allergies Allergy/AdvReac Type Severity Reaction Status Date / Time No Known Allergies Allergy Verified 03/09/25 08:44 Home Medications ?Medication ?Instructions ?Recorded ?Confirmed ?Last Taken ?Type ezetimibe 10 mg tablet 10 mg PO DAILY 09/20/22 05/03/25 Unknown History finasteride 5 mg tablet 5 mg PO DAILY 09/20/22 05/03/25 Unknown History gabapentin 800 mg tablet 400 mg PO QID 09/20/22 05/03/25 01/11/23 History quetiapine 25 mg tablet (Seroquel) 25 mg PO BEDTIME 12/03/22 05/03/25 Unknown History atorvastatin 80 mg tablet 80 mg PO DAILY 04/16/24 05/03/25 Unknown History baclofen 10 mg tablet 10 mg PO TID 04/16/24 05/03/25 Unknown History buspirone 15 mg tablet 15 mg PO BID 04/16/24 05/03/25 Unknown History fluorouracil 5 % topical cream 1 appl topical BID 04/16/24 05/03/25 Unknown History risperidone 1 mg tablet 1.5 mg PO BEDTIME 04/16/24 05/03/25 Unknown History tamsulosin 0.4 mg capsule 0.4 mg PO DAILY 04/16/24 05/03/25 Unknown History zolpidem 10 mg tablet 10 mg PO BEDTIME PRN Insomnia 04/16/24 05/03/25 Unknown History diclofenac sodium 1 % topical gel 2 g topical QID PRN pain 03/09/25 05/03/25 Unknown History pantoprazole 40 mg tablet,delayed 40 mg PO DAILY 03/09/25 05/03/25 Unknown History release Exam Height,Weight and Vital Signs: Height 5 ft 8 in Weight 75.75 kg Documented by User: Leah Flynn DO 05/05/25 08:08 [facility] Past Medical History Medical History (Updated 05/05/25 @ 07:50 by Ellyn Rodriguez RN) Right shoulder injury Hyperlipidemia GERD (gastroesophageal reflux disease) BPH (benign prostatic hyperplasia) Nicotine dependence, cigarettes, uncomplicated Depressed Anxiety Chronic neck pain Epidermal cyst Family History Family History Sister Krukenberg tumor Family history of problems with anesthesia: No Surgical History Surgical History (Updated 05/03/25 @ 14:48 by Monet Machuca RN) H/O colonoscopy Hx of surgical procedure (~04/01/23) History of incisional hernia repair History of carpal tunnel surgery History of umbilical hernia repair History of inguinal hernia repair History of basal cell carcinoma excision History of arthroscopic surgery of shoulder History of Problems with Anesthesia: No Social History Social History Alcohol intake: current Alcohol intake frequency: holidays/special occasions only Alcohol type: beer Patient Tobacco Use Status: Current everyday Tobacco user Tobacco use type: Cigarette Cigarette Packs Per Day: 1 Cigarettes Per Day: 20.0 Years Smoked: (current smoker, onset 10yo, 1ppd x 44yrs, 40pyh) Use of substances other than those prescribed or required for medical reasons: No Are you DNR?: No Advance Directives: No Advance Directives Information Provided: Yes Poor oral hygiene: No Current occupational status: disabled Current occupation: rt hand Meds Allergies Allergy/AdvReac Type Severity Reaction Status Date / Time No Known Allergies Allergy Verified 03/09/25 08:44 Home Medications ?Medication ?Instructions ?Recorded ?Confirmed ?Last Taken ?Type ezetimibe 10 mg tablet 10 mg PO DAILY 09/20/22 05/03/25 Unknown History finasteride 5 mg tablet 5 mg PO DAILY 09/20/22 05/03/25 Unknown History gabapentin 800 mg tablet 400 mg PO QID 09/20/22 05/03/25 01/11/23 History quetiapine 25 mg tablet (Seroquel) 25 mg PO BEDTIME 12/03/22 05/03/25 Unknown History atorvastatin 80 mg tablet 80 mg PO DAILY 04/16/24 05/03/25 Unknown History baclofen 10 mg tablet 10 mg PO TID 04/16/24 05/03/25 Unknown History buspirone 15 mg tablet 15 mg PO BID 04/16/24 05/03/25 Unknown History fluorouracil 5 % topical cream 1 appl topical BID 04/16/24 05/03/25 Unknown History risperidone 1 mg tablet 1.5 mg PO BEDTIME 04/16/24 05/03/25 Unknown History tamsulosin 0.4 mg capsule 0.4 mg PO DAILY 04/16/24 05/03/25 Unknown History zolpidem 10 mg tablet 10 mg PO BEDTIME PRN Insomnia 04/16/24 05/03/25 Unknown History diclofenac sodium 1 % topical gel 2 g topical QID PRN pain 03/09/25 05/03/25 Unknown History pantoprazole 40 mg tablet,delayed 40 mg PO DAILY 03/09/25 05/03/25 Unknown History release Exam Exam Date and Time: 05/05/25 0800 Airway Mallampati Class: II TM Dist: >3cm Neck ROM: Full Partial: Lower Heart: S1S2 Lungs: CTAB Assessment and Plan Assessment Anesthesia Assessment: Anesthesia Plan Discussed and Chart Reviewed Final Anesthetic Review Family History of Problems with Anesthesia: No History of Problems with Anesthesia: No NPO: Yes ASA Class: II Final Preanesthetic Review: No Changes in Pt Med Stat, Meds/Allgs Chart Reviewed, Consent Obtained/Reviewed and Anes Risks/Benef Reviewed Patient Risk: Low Procedure Risk: Low Anesthetic Plan Anesthetic Plan: MAC: and Agree w/ Assess. and Plan Disposition: Standard PACU
[2025-05-05] MEDS: Lactated Ringers 1,000 ML 100 ML IVCONT (08:12)
--- NOTE | 2025-05-05 08:39 | MHC.SHP ---
Pre-Procedural Eval Section A - 24 Hr Update-Section A only Date of Service: 05/05/25 Section B - Complete if H&P > 30 days Chief Complaint: screening Relevant Family History (Specify if Yes): No Relevant Social History: Tobacco Use Present Medications: see Short Stay Collaborative assessment Medical History: Significant History (Hyperlipidemia GERD (gastroesophageal reflux disease) BPH (benign prostatic hyperplasia) Nicotine dependence, cigarettes, uncomplicated Depressed Anxiety Chronic neck pain Epidermal cyst) History of Previous Operations: Relevant previous surgery/procedure and date(s) (Hx of surgical procedure (~04/01/23) History of incisional hernia repair History of carpal tunnel surgery History of umbilical hernia repair History of inguinal hernia repair History of basal cell carcinoma excision History of arthroscopic surgery of shoulder) Allergies: Allergies Allergy/AdvReac Type Severity Reaction Status Date / Time No Known Allergies Allergy Verified 03/09/25 08:44 Review of Systems Sugical H&P ROS: Negative: Constitution, Cardiovascular, Respiratory, Neurological, Psychiatric, Hem-Onc, Allergic/Immunologic, Gastrointestinal, Genitourinary, Musculoskeletal, Integumentary, Endocrine and Eyes/Ears/Nose/Throat Exam Surgical H&P Exam: Normal: HEENT, Normal: Heart, Normal: Lungs, Normal: Extremities, Normal: Abdomen, Normal: Skin and Normal: Neurological Plan Diagnosis/Plan: Unchanged I have reviewed the history and physical and performed a pertinent physical examination on my patient. No changes have occurred unless specified. Time Spent With Patient Time: Total time managing care of this patient today ____ minutes.
--- NOTE | 2025-05-05 09:30 | HO.OPN-COLON ---
Colonoscopy Operative Note Operative Note Date of Service: 05/05/25 Narrative: Operative Information Procedure Description: EGD, Colonoscopy Indication: GERD, screening Anesthesia: MAC FLEXIBLE TRANSORAL UPPER GASTROINTESTINAL ENDOSCOPY AND COLONOSCOPY PROCEDURE NOTE UPPER ENDOSCOPY Consent: Indications for the procedure and potential complications of bleeding, perforation, reaction to medications and missed diagnosis were discussed with the patient and informed consent was obtained. Instrument: Olympus GIF H 190 J mid size upper endoscope Monitoring: Vital signs and clinical assessment, continuous EKG monitoring, Pulse oximetry, Carbon Dioxide monitoring and blood pressure monitoring were done throughout the procedure. Procedure: The patient was placed in the left lateral decubitis position and pre-procedure medications were administered and a bite block was placed. The endoscope was inserted into the mouth and advanced under direct vision to the third part of duodenum. A careful inspection was made as the upper endoscope was withdrawn including a retroflexed examination of the proximal stomach; Findings and interventions are described below. Findings: Larynx:normal Esophagus: GE junction at 40 cm, diaphragm hiatus at 40 cm, bogginess and erythema at GEJ, bx taken also from distal and proximal esophagus Stomach: granular mucosa with patchy erythema. Biopsies were obtained. Grade 2 flap valve on retroflexed examination of the cardia. Duodenum: bulbar duodenitis with small erosions, bx taken Intervention: Biopsies as noted above, COLONOSCOPY Instrument: Olympus variable stiffness pediatric scope 190L Colonoscopy Monitoring: Vital signs and clinical assessment, continuous EKG monitoring, Pulse oximetry, Carbon Dioxide monitoring and blood pressure monitoring were done throughout the procedure. Colon withdrawal time was 9 minutes. Procedure: The patient was placed in the left lateral decubitis position and pre-procedure medications were administered. After a digital rectal examination of the ano-rectum, the video colonoscope was inserted into the rectum and advanced through the colon to the cecum/TI. The colonoscope was slowly withdrawn in a retrograde panoramic fashion and the colon mucosa was carefully examined including a retroflexed view of the rectum. Findings and interventions are described below. Procedure Difficulty:moderate Findings: Terminal Ileum- mild ileitis with erosion seen, bx taken Cecum: mild erythema, bx taken Ascending Colon: normal Transverse Colon -normal Descending Colon: 4-6 mm sessile polyp removed with cold forceps Sigmoid Colon: normal Rectum: Retroflexion with medium sized inflammed internal hemorrhoids, grade I, 5-7 mm sessile polyp removed with cold forceps Anorectum - normal Colon preparation: [place] Bowel Preparation Scale Right colon; 2 Transverse colon: 2 Left colon; 2 (0 = Unprepared colon segment with mucosa not seen due to solid stool that cannot be cleared. 1 = Portion of mucosa of the colon segment seen, but other areas of the colon segment not well seen due to staining, residual stool and/or opaque liquid. 2 = Minor amount of residual staining, small fragments of stool and/or opaque liquid, but mucosa of colon segment seen well. 3 = Entire mucosa of colon segment seen well with no residual staining, small fragments of stool or opaque liquid) Impression and Post Procedure Diagnosis: Endoscopy Findings: esophagitis gastritis erosive duodenitis Colonoscopy Findings: mild ileitis colon polyps x2 internal hemorrhoids Plan: Await Pathology results Repeat Colonoscopy in 5-7 years if adenomatous polyps, 10 yrs if non pre cancerous or earlier if clinically indicated High fiber diet leaflet avoid straining at stool, epsom salts and sitz bath, anusol supps or cream check nsaid hx, and if h pylori pos then treat Above findings were reviewed with the patient and relevant handouts were provided if indicated.
[2025-05-05 09:35] VITALS: BP 137/82; PULSE 61; RESP 16; TEMP 36.2; O2SAT 98
[2025-05-05 09:50] VITALS: BP 147/91; PULSE 49; RESP 16; TEMP 36.1; O2SAT 99
== END 2025-05-05 10:35 | disposition home or self-care (01) ==
PROVIDERS: PCP Family Medicine; Visit Provider Internal Medicine Gastroenterology
PROC: (CPT 45380; principal; 2025-05-05 09:10)
DX: Z12.11 Encounter for screening for malignant neoplasm of colon (principal); D12.4 Benign neoplasm of descending colon; K62.1 Rectal polyp; K52.9 Noninfective gastroenteritis and colitis, unspecified; K64.8 Other hemorrhoids; K21.00 Gastro-esophageal reflux disease with esophagitis, without bleeding; K29.70 Gastritis, unspecified, without bleeding; K26.9 Duodenal ulcer, unspecified as acute or chronic, without hemorrhage or perforation; F17.210 Nicotine dependence, cigarettes, uncomplicated; Z71.6 Tobacco abuse counseling
CPT/HCPCS: 45380; 43239; 88305; 88313; 88342; J2704

== ENCOUNTER → 2025-05-05 06:41 | Outpatient (BNV) | payer OTHER, SELFPAY | PROVIDERS: PCP Family Medicine; Visit Provider Internal Medicine Gastroenterology | DX: Z12.11 Encounter for screening for malignant neoplasm of colon (principal); K52.9 Noninfective gastroenteritis and colitis, unspecified; D12.4 Benign neoplasm of descending colon; D12.8 Benign neoplasm of rectum; K64.0 First degree hemorrhoids; K21.00 Gastro-esophageal reflux disease with esophagitis, without bleeding; K29.70 Gastritis, unspecified, without bleeding; K29.80 Duodenitis without bleeding | CPT/HCPCS: 43239; 45380 ==